=== PATIENT | male | born 1955 | race Two or more races ===

== ENCOUNTER → 2020-03-03 11:42 | Outpatient (BNVA) | payer MEDICARE, OTHER, SELFPAY | PROVIDERS: PCP Internal Medicine; Referring Provider Internal Medicine; Visit Provider Internal Medicine Gastroenterology | DX: C22.0 Liver cell carcinoma (principal); K74.60 Unspecified cirrhosis of liver | CPT/HCPCS: 99214 ==

== ENCOUNTER → 2020-04-24 10:05 | Outpatient (BNVA) | payer SELFPAY | PROVIDERS: PCP Internal Medicine; Visit Provider Internal Medicine | DX: Z02.79 Encounter for issue of other medical certificate (principal) ==

== ENCOUNTER 2020-06-02 12:17 | Outpatient (REF) | payer MEDICAID, SELFPAY | END 2020-06-02 12:18 | disposition home or self-care (01) | LOC: HO.LAB 12:17 | PROVIDERS: Visit Provider Internal Medicine | DX: Z20.822 Contact with and (suspected) exposure to COVID-19 (principal) | CPT/HCPCS: 36415; C9803; U0003 ==

== ENCOUNTER → 2020-06-09 08:45 | Outpatient (BNVA) | payer MEDICAID, SELFPAY | PROVIDERS: PCP Internal Medicine; Referring Provider Internal Medicine; Visit Provider Internal Medicine Gastroenterology | DX: Z13.89 Encounter for screening for other disorder (principal) | CPT/HCPCS: Q3014 ==

== ENCOUNTER 2020-06-09 12:20 | Outpatient (REF) | payer MEDICARE, MEDICAID, SELFPAY | END 2020-06-09 12:21 | disposition home or self-care (01) | LOC: HO.LAB 12:20 | PROVIDERS: Visit Provider Internal Medicine | DX: Z20.822 Contact with and (suspected) exposure to COVID-19 (principal) | CPT/HCPCS: 36415; C9803; U0003; U0005 ==

== ENCOUNTER 2020-06-30 10:15 | Outpatient (REF) | payer MEDICARE, MEDICAID, SELFPAY ==
[2020-06-30 10:59] LABS: Eosinophils Absolute Auto 0.1 X10*3/uL (0.0-0.4); Eosinophils Percent Auto 3.2 % (0-4); Hemoglobin 11.9 g/dl (14.0-18.0); MANUAL DIFF FLAG SCAN; Monocytes Absolute Auto 0.6 X10*3/uL (0.1-1.2); Neutrophils Percent Auto 67.3 % (45-73); PLT CLUMP 1; Red Cell Distribution Width 12.6 % (11.0-16.0); SCAN SMEAR FLAG 1
[2020-06-30 11:01] LABS: Basophils Percent Auto 0.5 % (0-2); Hematocrit 35.2 % (42-52); Imm Gran Abs Auto 0.02 X10*3/uL (0.00-0.03); Imm Gran Pct Auto 0.5 % (0.0-0.4); Lymphocytes Absolute Auto 0.6 X10*3/uL (1.2-4.9); Lymphocytes Percent Auto 13.8 % (20-40); Mean Corpuscular HGB Conc 33.8 g/dl (31.0-36.0); Mean Corpuscular Hemoglobin 31.1 pg (27.0-33.0); Mean Corpuscular Volume 91.9 fL (80-98); Monocytes Percent Auto 14.7 % (2-11); Neutrophils Absolute Auto 2.7 X10*3/uL (2.0-8.3); Red Blood Count 3.83 X10*6/uL (4.60-5.80); White Blood Count 4.1 X10*3/uL (4.8-10.8)
[2020-06-30 11:03] LABS: Platelet Count 69 X10*3/uL (160-400)
[2020-06-30 11:25] LABS: SLIDE REVIEW VERIFIED
[2020-06-30 11:28] LABS: Alanine Aminotransferase 17 U/L (0-40); Albumin Level 3.6 g/dL (3.5-5.0); Alkaline Phosphatase 98 U/L (39-117); Anion Gap 11 (12-20); Aspartate Amino Transferase 24 U/L (5-37); Bilirubin Total 2.5 mg/dL (0.0-1.0); Blood Urea Nitrogen 11 mg/dL (9-16); Calcium 8.5 mg/dL (8.4-10.2); Carbon Dioxide 25 mmol/L (22-29); Chloride 108 mmol/L (96-108); Cholesterol 120 mg/dL; Estimated Glomerular Filt Rate > 60; Glucose Fasting 126 mg/dL (60-99); HDL Cholesterol 32 mg/dL; LDL Cholesterol Calculated 72 mg/dl; Potassium 4.2 mmol/L (3.3-5.1); Sodium 140 mmol/L (135-145); Total Protein 6.9 g/dL (6.5-8.0); Triglycerides 81 mg/dL
[2020-06-30 11:30] LABS: Glucose Urine UA NEG (NEG); Leukocyte Esterase Urine NEG (NEG); Nitrite Urine NEG (NEG); Specific Gravity - Urine 1.025 (1.005-1.025); Urine Blood 2+ (NEG); Urine Ketones NEG (NEG); Urine Protein NEG (NEG-TRACE)
[2020-06-30 11:33] LABS: Appearance Urine HAZY; Color Urine YELLOW
[2020-06-30 11:43] LABS: TSH reflex Free T4 1.72 uIU/mL (0.32-4.0); Vitamin D 25-OH Total 26.2 ng/mL (>30)
[2020-06-30 11:44] LABS: Mucus Urine 1+ /LPF; Squamous Epithelial Cell Urine 1+ /LPF; WBC Urine 0 /HPF (0-4)
== END 2020-06-30 10:16 | disposition home or self-care (01) ==
LOC: HO.LAB 10:15
PROVIDERS: PCP Internal Medicine; Visit Provider Internal Medicine
DX: C22.0 Liver cell carcinoma (principal); I10 Essential (primary) hypertension; K74.60 Unspecified cirrhosis of liver; E78.5 Hyperlipidemia, unspecified; I63.9 Cerebral infarction, unspecified; E66.9 Obesity, unspecified; E55.9 Vitamin D deficiency, unspecified
CPT/HCPCS: 36415; 80053; 80061; 81001; 82306; 84443; 85025

== ENCOUNTER 2020-07-01 11:43 | Outpatient (REF) | payer MEDICARE, MEDICAID, SELFPAY ==
[2020-07-01 13:24] LABS: Glucose Urine UA NEG (NEG); Leukocyte Esterase Urine NEG (NEG); Nitrite Urine NEG (NEG); PH 5.5 (5.0-8.0); Urine Blood 1+ (NEG); Urine Ketones NEG (NEG); Urine Protein NEG (NEG-TRACE)
[2020-07-01 13:30] LABS: Appearance Urine HAZY; Color Urine YELLOW
[2020-07-01 13:46] LABS: Mucus Urine 2+ /LPF; RBC Urine 0-2 /HPF (0); Squamous Epithelial Cell Urine 1+ /LPF; WBC Urine 0 /HPF (0-4)
[2020-07-02 07:44] LABS: Syphilis Screen Reactive (Nonreactive)
[2020-07-04 19:11] LABS: Treponema pallidum Ab FTA ABS Reactive (Nonreactive)
[2020-07-07 15:09] LABS: RPR Quantitative Reactive 1:8 (Nonreactive); T.Pallidum Particle Agg Test Reactive (Nonreactive)
== END 2020-07-01 11:44 | disposition home or self-care (01) ==
LOC: HO.LAB 11:43
PROVIDERS: PCP Internal Medicine; Visit Provider Internal Medicine
DX: A53.0 Latent syphilis, unspecified as early or late (principal); I10 Essential (primary) hypertension; N40.0 Benign prostatic hyperplasia without lower urinary tract symptoms; K42.9 Umbilical hernia without obstruction or gangrene
CPT/HCPCS: 36415; 81001; 86592; 86780

== ENCOUNTER 2020-08-08 09:25 | Outpatient (REF) | payer MEDICARE, MEDICAID, SELFPAY ==
[2020-08-08 11:03] LABS: Basophils Percent Auto 0.7 % (0-2); Eosinophils Absolute Auto 0.2 X10*3/uL (0.0-0.4); Eosinophils Percent Auto 4.2 % (0-4); Hematocrit 33.8 % (42-52); Hemoglobin 11.3 g/dl (14.0-18.0); Imm Gran Abs Auto 0.02 X10*3/uL (0.00-0.03); Imm Gran Pct Auto 0.5 % (0.0-0.4); Lymphocytes Absolute Auto 0.6 X10*3/uL (1.2-4.9); Lymphocytes Percent Auto 14.5 % (20-40); MANUAL DIFF FLAG SCAN; Mean Corpuscular HGB Conc 33.4 g/dl (31.0-36.0); Mean Corpuscular Hemoglobin 30.6 pg (27.0-33.0); Mean Corpuscular Volume 91.6 fL (80-98); Mean Platelet Volume 12.2 fL (9.4-12.4); Monocytes Absolute Auto 0.6 X10*3/uL (0.1-1.2); Monocytes Percent Auto 15.8 % (2-11); Neutrophils Absolute Auto 2.6 X10*3/uL (2.0-8.3); Neutrophils Percent Auto 64.3 % (45-73); Red Blood Count 3.69 X10*6/uL (4.60-5.80); Red Cell Distribution Width 12.9 % (11.0-16.0); SCAN SMEAR FLAG 1; White Blood Count 4.1 X10*3/uL (4.8-10.8)
[2020-08-08 11:04] LABS: INTERNATIONAL NORM RATIO 1.5 (0.9-1.1); Prothrombin Time 17.4 SEC (10.8-13.0)
[2020-08-08 11:06] LABS: Alanine Aminotransferase 18 U/L (0-40); Albumin Level 3.7 g/dL (3.5-5.0); Alkaline Phosphatase 104 U/L (39-117); Aspartate Amino Transferase 23 U/L (5-37); Bilirubin Total 1.9 mg/dL (0.0-1.0); Blood Urea Nitrogen 12 mg/dL (9-16); Carbon Dioxide 27 mmol/L (22-29); Chloride 105 mmol/L (96-108); Estimated Glomerular Filt Rate > 60; Iron 59 mcg/dL (45-160); Percent Iron Saturation 14 % (15-50); Potassium 4.1 mmol/L (3.3-5.1); Sodium 139 mmol/L (135-145); Total Iron Binding Capacity 415 mcg/dL (228-428); Unsaturated Iron Binding 356 ug/dL
[2020-08-08 11:12] LABS: Platelet Count 80 X10*3/uL (160-400)
[2020-08-08 11:28] LABS: Ferritin 29 ng/mL (20-250)
[2020-08-08 11:32] LABS: SLIDE REVIEW VERIFIED
[2020-08-12 22:12] LABS: Transferrin 348 mg/dL (188-341)
== END 2020-08-08 09:26 | disposition home or self-care (01) ==
LOC: HO.LAB 09:25
PROVIDERS: PCP Internal Medicine; Visit Provider Registered Nurse
DX: K74.60 Unspecified cirrhosis of liver (principal); C22.0 Liver cell carcinoma
CPT/HCPCS: 36415; 82040; 82247; 82374; 82435; 82565; 82728; 83540; 84075; 84132; 84295; 84450; 84460; 84466; 84520; 85025; 85610

== ENCOUNTER 2020-08-28 12:40 | Outpatient (REF) | payer MEDICARE, MEDICAID, SELFPAY ==
[2020-08-28 13:58] LABS: Basophils Percent Auto 0.7 % (0-2); MANUAL DIFF FLAG SCAN; PLT CLUMP 1; Red Cell Distribution Width 13.2 % (11.0-16.0); SCAN SMEAR FLAG 1
[2020-08-28 14:01] LABS: Eosinophils Absolute Auto 0.2 X10*3/uL (0.0-0.4); Eosinophils Percent Auto 4.1 % (0-4); Hematocrit 32.9 % (42-52); Hemoglobin 11.2 g/dl (14.0-18.0); Imm Gran Abs Auto 0.01 X10*3/uL (0.00-0.03); Imm Gran Pct Auto 0.2 % (0.0-0.4); Lymphocytes Absolute Auto 0.6 X10*3/uL (1.2-4.9); Lymphocytes Percent Auto 13.3 % (20-40); Mean Corpuscular Hemoglobin 31.1 pg (27.0-33.0); Mean Corpuscular Volume 91.4 fL (80-98); Mean Platelet Volume 10.9 fL (9.4-12.4); Monocytes Absolute Auto 0.6 X10*3/uL (0.1-1.2); Monocytes Percent Auto 13.8 % (2-11); Neutrophils Absolute Auto 2.8 X10*3/uL (2.0-8.3); Neutrophils Percent Auto 67.9 % (45-73); White Blood Count 4.1 X10*3/uL (4.8-10.8)
[2020-08-28 14:12] LABS: INTERNATIONAL NORM RATIO 1.4 (0.9-1.1); Prothrombin Time 17.2 SEC (10.8-13.0)
[2020-08-28 14:15] LABS: Alanine Aminotransferase 16 U/L (0-40); Albumin Level 3.7 g/dL (3.5-5.0); Alkaline Phosphatase 103 U/L (39-117); Aspartate Amino Transferase 22 U/L (5-37); Bilirubin Total 2.6 mg/dL (0.0-1.0); Blood Urea Nitrogen 18 mg/dL (9-16); Carbon Dioxide 23 mmol/L (22-29); Chloride 109 mmol/L (96-108); Estimated Glomerular Filt Rate > 60; Iron 165 mcg/dL (45-160); Percent Iron Saturation 37 % (15-50); Potassium 4.1 mmol/L (3.3-5.1); Sodium 139 mmol/L (135-145); Total Iron Binding Capacity 444 mcg/dL (228-428); Unsaturated Iron Binding 279 ug/dL
[2020-08-28 14:25] LABS: Platelet Count 70 X10*3/uL (160-400)
[2020-08-28 14:36] LABS: Ferritin 23 ng/mL (20-250)
[2020-08-28 14:42] LABS: SLIDE REVIEW VERIFIED
[2020-08-29 14:57] LABS: Transferrin 353 mg/dL (188-341)
== END 2020-08-28 12:41 | disposition home or self-care (01) ==
LOC: HO.LAB 12:40
PROVIDERS: PCP Internal Medicine; Visit Provider Registered Nurse
DX: K74.60 Unspecified cirrhosis of liver (principal); C22.0 Liver cell carcinoma
CPT/HCPCS: 36415; 82040; 82247; 82374; 82435; 82565; 82728; 83540; 84075; 84132; 84295; 84450; 84460; 84466; 84520; 85025; 85610

== ENCOUNTER 2020-09-09 11:38 | Outpatient (REF) | payer MEDICARE, MEDICAID, SELFPAY ==
[2020-09-09 12:17] LABS: COVID-19 Test Negative (Negative)
== END 2020-09-09 11:39 | disposition home or self-care (01) ==
LOC: HO.LAB 11:38
PROVIDERS: Visit Provider Internal Medicine
DX: Z20.822 Contact with and (suspected) exposure to COVID-19 (principal)
CPT/HCPCS: 36415; 87635; C9803

== ENCOUNTER 2020-09-23 11:59 | Outpatient (REF) | payer MEDICARE, MEDICAID, SELFPAY ==
[2020-09-23 13:25] LABS: Eosinophils Absolute Auto 0.2 X10*3/uL (0.0-0.4); Hematocrit 35.2 % (42-52); MANUAL DIFF FLAG SCAN; Mean Corpuscular Volume 91.9 fL (80-98); PLT CLUMP 1; Red Blood Count 3.83 X10*6/uL (4.60-5.80); SCAN SMEAR FLAG 1
[2020-09-23 13:27] LABS: Basophils Percent Auto 0.8 % (0-2); Eosinophils Percent Auto 3.2 % (0-4); Hemoglobin 11.9 g/dl (14.0-18.0); Imm Gran Abs Auto 0.03 X10*3/uL (0.00-0.03); Imm Gran Pct Auto 0.6 % (0.0-0.4); Lymphocytes Absolute Auto 0.6 X10*3/uL (1.2-4.9); Lymphocytes Percent Auto 12.2 % (20-40); Mean Corpuscular HGB Conc 33.8 g/dl (31.0-36.0); Mean Corpuscular Hemoglobin 31.1 pg (27.0-33.0); Monocytes Absolute Auto 0.7 X10*3/uL (0.1-1.2); Monocytes Percent Auto 13.8 % (2-11); Neutrophils Absolute Auto 3.5 X10*3/uL (2.0-8.3); Neutrophils Percent Auto 69.4 % (45-73); Red Cell Distribution Width 13.1 % (11.0-16.0); White Blood Count 5.1 X10*3/uL (4.8-10.8)
[2020-09-23 13:30] LABS: Platelet Count 76 X10*3/uL (160-400)
[2020-09-23 13:31] LABS: INTERNATIONAL NORM RATIO 1.4 (0.9-1.1); Prothrombin Time 17.2 SEC (10.8-13.0)
[2020-09-23 13:47] LABS: SLIDE REVIEW VERIFIED
[2020-09-23 13:59] LABS: Alanine Aminotransferase 21 U/L (0-40); Albumin Level 3.7 g/dL (3.5-5.0); Alkaline Phosphatase 97 U/L (39-117); Aspartate Amino Transferase 23 U/L (5-37); Blood Urea Nitrogen 11 mg/dL (9-16); Carbon Dioxide 26 mmol/L (22-29); Chloride 107 mmol/L (96-108); Estimated Glomerular Filt Rate > 60; Iron 211 mcg/dL (45-160); Percent Iron Saturation 47 % (15-50); Potassium 4.4 mmol/L (3.3-5.1); Sodium 139 mmol/L (135-145); Total Iron Binding Capacity 445 mcg/dL (228-428); Unsaturated Iron Binding 234 ug/dL
[2020-09-23 14:21] LABS: Ferritin 33 ng/mL (20-250)
[2020-09-24 09:04] LABS: Syphilis Screen Reactive (Nonreactive)
[2020-09-24 11:42] LABS: Transferrin 353 mg/dL (188-341)
[2020-09-25 11:32] LABS: Alpha Fetoprotein 3.3 ng/mL (<6.1)
[2020-09-26 13:25] LABS: HCV Log PCR <1.18 NOT DETECTED Log IU/mL (NOT DETECTED); HepC Viral Load <15 NOT DETECTED IU/mL (NOT DETECTED)
[2020-10-01 13:53] LABS: RPR Quantitative Reactive 1:8 (Nonreactive); T.Pallidum Particle Agg Test Reactive (Nonreactive)
== END 2020-09-23 12:00 | disposition home or self-care (01) ==
LOC: HO.LAB 11:59
PROVIDERS: PCP Internal Medicine; Visit Provider Internal Medicine
DX: K74.60 Unspecified cirrhosis of liver (principal)
CPT/HCPCS: 36415; 82040; 82105; 82374; 82435; 82565; 82728; 83540; 84075; 84132; 84295; 84450; 84460; 84466; 84520; 85025; 85610; 86592; 86780; 87522

== ENCOUNTER 2020-11-04 15:41 | Outpatient (REF) | payer MEDICARE, MEDICAID, SELFPAY ==
[2020-11-04 17:07] LABS: Blood Urea Nitrogen 10 mg/dL (9-16); Estimated Glomerular Filt Rate > 60
== END 2020-11-04 15:42 | disposition home or self-care (01) ==
LOC: HO.LAB 15:41
PROVIDERS: PCP Internal Medicine; Visit Provider Radiology Radiation Oncology
DX: C22.0 Liver cell carcinoma (principal)
CPT/HCPCS: 36415; 82565; 84520

== ENCOUNTER → 2020-11-06 10:00 | Outpatient (REF) | payer MEDICARE, MEDICAID, SELFPAY ==
--- NOTE | ~2020-11-06 | NM_ITS ---
EXAMINATION: NM BONE SCAN OF THE WHOLE BODY CLINICAL INFORMATION: Liver cell carcinoma question metastases COMPARISON: CT abdomen and pelvis 01/18/2019 TECHNIQUE: Multiple gamma scintillation camera images of the whole body were performed 3 hours following the intravenous administration of 33 mCi Tc-99m MDP. FINDINGS: In the head, there is no abnormal metabolic activity seen in the calvarium. In the thoracic cage and upper extremities, minimal focal activity seen in the T8 vertebra likely related to degenerative changes. No additional metabolic activity seen in the thoracic cavity. Mild increased activity seen in bilateral AC joints. In the spine, no abnormal metabolic activity seen in the thoracic, cervical or lumbar spine. SI joints are symmetrical and have normal activity. In the pelvis, no abnormal activity seen in the pelvis In the lower extremities, no abnormal activity seen in the lower extremities. No other definite bony abnormalities are noted. The urinary bladder and faint visualization of both kidneys are noted. NM/NM bone scan whole body IMPRESSION: No abnormal metabolic activity seen on whole body bone scan to suspect metastatic disease.
--- NOTE | ~2020-11-06 | CT_ITS ---
EXAMINATION: CT CHEST WITH CONTRAST CLINICAL INFORMATION: Liver cancer COMPARISON: Previous chest CT scan most recent January 2019 TECHNIQUE: Multidetector volumetric CT imaging of the chest was obtained after the administration of 65 mL of Omnipaque 350 intravenous contrast without immediate adverse reactions. Axial MIP volume rendering provided. Sagittal and coronal reformatted images were obtained. This CT examination was performed using dose optimization techniques as appropriate, variously including the following: *Automated exposure control *Adjustment of mA and/or kV according to patient size (this includes techniques or standardized protocols for targeted exams where dose is matched to indication/reason for exam; i.e. extremities or head) *Use of iterative reconstruction technique DLP: 174 mGy-cm FINDINGS: LUNGS: There are small pulmonary nodules that are stable. Largest pulmonary nodule is a 3 mm calcified left upper lobe nodule axial image 58 series 5. No new pulmonary nodule is seen. MEDIASTINUM: There are small mediastinal lymph nodes that are stable. No enlarged lymph nodes are seen. The heart does not appear enlarged. There is no coronary artery calcium there is no pericardial effusion. The thoracic aorta is normal in caliber. The visualized thyroid gland is normal. PLEURA: There is no pleural effusion. No pleural mass or thickening. AXILLA: No lymphadenopathy. UPPER ABDOMEN: There are stable postsurgical changes to the right lobe of the liver. There are new posttreatment changes to the high lateral left lobe of the liver and lateral segment of the left lobe of the liver with surgical clips. These are associated with low-attenuation areas measuring approximately 3 x 4 cm high in the central liver and 2 x 8 cm in the lateral segment of the left lobe of the liver. These findings are new from previous exam from 2019. The spleen is enlarged. There may be trace ascites adjacent to the spleen. There are gallstones in the gallbladder. There is a 1.5 cm left renal cyst. OSSEOUS STRUCTURES: There are degenerative changes of the spine. CT/CT chest w con IMPRESSION: Stable small pulmonary nodules from 2019. New postsurgical changes to the liver. Enlarged spleen. Question trace ascites adjacent to the spleen. Gallstones. Left renal cyst.
[2020-11-06] MEDS: iohexoL 350 MG/ML 100 ML INFUS..BTL IV (11:29)
== END ==
LOC: HO.NUCMED 10:00
PROVIDERS: Visit Provider Registered Nurse
DX: C22.0 Liver cell carcinoma (principal)
CPT/HCPCS: 71260; 78306; A9503; Q9967

== ENCOUNTER 2021-02-05 11:44 | Outpatient (REF) | payer MEDICARE, MEDICAID, SELFPAY ==
[2021-02-05 12:17] LABS: Blood Urea Nitrogen 10 mg/dL (9-16); Carbon Dioxide 25 mmol/L (22-29); Chloride 106 mmol/L (96-108); Estimated Glomerular Filt Rate > 60; Potassium 4.1 mmol/L (3.3-5.1); Sodium 139 mmol/L (135-145)
== END 2021-02-05 11:45 | disposition home or self-care (01) ==
LOC: HO.LAB 11:44
PROVIDERS: Absent Provider Internal Medicine; PCP Internal Medicine; Visit Provider Registered Nurse
DX: E87.70 Fluid overload, unspecified (principal); C22.0 Liver cell carcinoma
CPT/HCPCS: 36415; 82374; 82435; 82565; 84132; 84295; 84520

== ENCOUNTER 2021-02-16 11:55 | Outpatient (REF) | payer MEDICARE, MEDICAID, SELFPAY ==
[2021-02-16 13:03] LABS: Blood Urea Nitrogen 14 mg/dL (9-16); Carbon Dioxide 28 mmol/L (22-29); Chloride 107 mmol/L (96-108); Estimated Glomerular Filt Rate > 60; Potassium 3.9 mmol/L (3.3-5.1); Sodium 140 mmol/L (135-145)
== END 2021-02-16 11:56 | disposition home or self-care (01) ==
LOC: HO.LAB 11:55
PROVIDERS: Absent Provider Internal Medicine; PCP Internal Medicine; Visit Provider Registered Nurse
DX: C22.0 Liver cell carcinoma (principal); E87.70 Fluid overload, unspecified
CPT/HCPCS: 36415; 80051; 82374; 82435; 82565; 84132; 84295; 84520

== ENCOUNTER 2021-03-31 11:35 | Outpatient (REF) | payer MEDICARE, MEDICAID, SELFPAY | END 2021-03-31 11:36 | disposition home or self-care (01) | LOC: HO.MDS 11:35 | PROVIDERS: PCP Internal Medicine; Visit Provider Internal Medicine | DX: D64.9 Anemia, unspecified (principal) | CPT/HCPCS: 36430; 86850; 86900; 86901; 86923; P9016 ==

== ENCOUNTER 2021-04-01 12:35 | Outpatient (REF) | payer MEDICARE, MEDICAID, SELFPAY ==
[2021-04-01 13:06] LABS: MANUAL DIFF FLAG NO
[2021-04-01 13:50] LABS: Basophils Percent Auto 0.6 % (0-2); Eosinophils Absolute Auto 0.2 X10*3/uL (0.0-0.4); Eosinophils Percent Auto 3.5 % (0-4); Hematocrit 30.9 % (42.0-52.0); Hemoglobin 10.2 g/dl (14.0-18.0); Imm Gran Abs Auto 0.02 X10*3/uL (0.00-0.03); Imm Gran Pct Auto 0.4 % (0.0-0.4); Lymphocytes Absolute Auto 0.5 X10*3/uL (1.2-4.9); Lymphocytes Percent Auto 10.6 % (20-40); Mean Corpuscular Hemoglobin 27.1 pg (27.0-33.0); Monocytes Absolute Auto 0.9 X10*3/uL (0.1-1.2); Neutrophils Absolute Auto 3.3 x10*3/uL (2.0-8.3); Neutrophils Percent Auto 66.9 % (45-73); Red Blood Count 3.77 X10*6/uL (4.60-5.80); Red Cell Distribution Width 14.8 % (11.0-16.0); White Blood Count 4.9 X10*3/uL (4.8-10.8)
[2021-04-01 14:03] LABS: Platelet Count 62 X10*3/uL (160-400)
== END 2021-04-01 12:36 | disposition home or self-care (01) ==
LOC: HO.LAB 12:35
PROVIDERS: PCP Internal Medicine; Visit Provider Internal Medicine
DX: Z86.2 Personal history of diseases of the blood and blood-forming organs and certain disorders involving the immune mechanism (principal)
CPT/HCPCS: 36415; 85025

== ENCOUNTER → 2021-04-13 13:32 | Outpatient (BNVA) | payer SELFPAY | PROVIDERS: PCP Internal Medicine; Visit Provider Internal Medicine | DX: Z02.79 Encounter for issue of other medical certificate (principal) ==

== ENCOUNTER 2021-04-21 11:48 | Outpatient (REF) | payer MEDICARE, MEDICAID, SELFPAY ==
[2021-04-21 12:02] LABS: MANUAL DIFF FLAG NO
[2021-04-21 12:12] LABS: Basophils Percent Auto 0.7 % (0-2); Eosinophils Absolute Auto 0.2 X10*3/uL (0.0-0.4); Eosinophils Percent Auto 3.1 % (0-4); Hematocrit 32.5 % (42.0-52.0); Hemoglobin 10.7 g/dl (14.0-18.0); Imm Gran Abs Auto 0.03 X10*3/uL (0.00-0.03); Imm Gran Pct Auto 0.5 % (0.0-0.4); Lymphocytes Absolute Auto 0.6 X10*3/uL (1.2-4.9); Lymphocytes Percent Auto 10.8 % (20-40); Mean Corpuscular HGB Conc 32.9 g/dl (31.0-36.0); Mean Corpuscular Hemoglobin 27.8 pg (27.0-33.0); Mean Corpuscular Volume 84.4 fL (80.0-98.0); Mean Platelet Volume 12.3 fL (9.4-12.4); Monocytes Absolute Auto 0.8 X10*3/uL (0.1-1.2); Monocytes Percent Auto 13.9 % (2-11); Neutrophils Absolute Auto 4.1 x10*3/uL (2.0-8.3); Red Blood Count 3.85 X10*6/uL (4.60-5.80); Red Cell Distribution Width 16.5 % (11.0-16.0); White Blood Count 5.7 X10*3/uL (4.8-10.8)
[2021-04-21 12:13] LABS: Platelet Count 86 X10*3/uL (160-400)
[2021-04-21 12:38] LABS: Alanine Aminotransferase 17 U/L (0-40); Albumin Level 3.7 g/dL (3.5-5.0); Alkaline Phosphatase 117 U/L (39-117); Anion Gap 13 (12-20); Aspartate Amino Transferase 22 U/L (5-37); Bilirubin Total 1.6 mg/dL (0.0-1.0); Blood Urea Nitrogen 22 mg/dL (9-16); Calcium 9.4 mg/dL (8.4-10.2); Carbon Dioxide 25 mmol/L (22-29); Chloride 101 mmol/L (96-108); Cholesterol 130 mg/dL; Estimated Glomerular Filt Rate 43; Glucose Fasting 275 mg/dL (60-99); HDL Cholesterol 23 mg/dL; LDL Cholesterol Calculated 37 mg/dl; Potassium 4.4 mmol/L (3.3-5.1); Sodium 135 mmol/L (135-145); Total Protein 7.4 g/dL (6.5-8.0); Triglycerides 354 mg/dL
[2021-04-21 12:57] LABS: Vitamin D 25-OH Total 24.8 ng/mL (>30)
[2021-04-21 13:33] LABS: Appearance Urine CLEAR; Color Urine YELLOW; Glucose Urine UA NEG (NEG); Leukocyte Esterase Urine NEG (NEG); Nitrite Urine NEG (NEG); UACC Culture Trigger NO; Urine Blood TRACE (NEG); Urine Ketones NEG (NEG); Urine Protein NEG (NEG-TRACE)
[2021-04-21 13:46] LABS: Squamous Epithelial Cell Urine 1+ /LPF; WBC Urine 0-2 /HPF (0-4)
[2021-04-24 17:42] LABS: Treponema pallidum Ab FTA ABS Reactive (Nonreactive)
== END 2021-04-21 11:49 | disposition home or self-care (01) ==
LOC: HO.LAB 11:48
PROVIDERS: Visit Provider Internal Medicine
DX: I10 Essential (primary) hypertension (principal); E78.00 Pure hypercholesterolemia, unspecified; E55.9 Vitamin D deficiency, unspecified; A53.0 Latent syphilis, unspecified as early or late
CPT/HCPCS: 36415; 80053; 80061; 81001; 82306; 84443; 85025; 86780

== ENCOUNTER 2021-05-19 15:17 | Outpatient (REF) | payer MEDICARE, MEDICAID, SELFPAY ==
[2021-05-19 16:12] LABS: Binax Now Covid-19 Ag Negative (Negative)
[2021-05-19 16:13] LABS: Binax Internal Control QC Valid
== END 2021-05-19 15:18 | disposition home or self-care (01) ==
LOC: HO.LAB 15:17
PROVIDERS: Visit Provider Internal Medicine
DX: Z20.822 Contact with and (suspected) exposure to COVID-19 (principal)
CPT/HCPCS: C9803

== ENCOUNTER 2021-06-09 11:07 | Outpatient (REF) | payer MEDICARE, MEDICAID, SELFPAY ==
[2021-06-09 12:15] LABS: Estimated Average Glucose 200 mg/dL; Hemoglobin A1c % 8.6 %
[2021-06-09 12:37] LABS: Alanine Aminotransferase 20 U/L (0-40); Albumin Level 3.4 g/dL (3.5-5.0); Alkaline Phosphatase 107 U/L (39-117); Aspartate Amino Transferase 22 U/L (5-37); Bilirubin Total 2.1 mg/dL (0.0-1.0); Blood Urea Nitrogen 15 mg/dL (9-16); Carbon Dioxide 28 mmol/L (22-29); Chloride 101 mmol/L (96-108); Estimated Glomerular Filt Rate 53; Potassium 4.4 mmol/L (3.3-5.1); Sodium 134 mmol/L (135-145)
[2021-06-09 13:04] LABS: Appearance Urine CLEAR; Color Urine STRAW; Glucose Urine UA 250 MG/DL (NEG); Leukocyte Esterase Urine NEG (NEG); Nitrite Urine NEG (NEG); Specific Gravity - Urine 1.015 (1.005-1.025); Urine Blood NEG (NEG); Urine Ketones NEG (NEG); Urine Protein NEG (NEG-TRACE)
[2021-06-12 10:36] LABS: Antibody to SS-A Antigen <1.0 NEG AI (<1.0 NEG); Antibody to SS-B Antigen <1.0 NEG AI (<1.0 NEG)
== END 2021-06-09 11:08 | disposition home or self-care (01) ==
LOC: HO.LAB 11:07
PROVIDERS: PCP Internal Medicine; Visit Provider Registered Nurse
DX: C22.0 Liver cell carcinoma (principal); E87.70 Fluid overload, unspecified; K74.60 Unspecified cirrhosis of liver; K11.7 Disturbances of salivary secretion; R63.1 Polydipsia; R73.09 Other abnormal glucose; C22.9 Malignant neoplasm of liver, not specified as primary or secondary; R53.83 Other fatigue
CPT/HCPCS: 36415; 81003; 82040; 82247; 82374; 82435; 82565; 83036; 84075; 84132; 84295; 84450; 84460; 84520; 86235

== ENCOUNTER 2021-06-17 14:24 | Outpatient (REF) | payer MEDICARE, MEDICAID, SELFPAY ==
[2021-06-17 15:53] LABS: Anion Gap 10 (12-20); Blood Urea Nitrogen 15 mg/dL (9-16); Calcium 9.2 mg/dL (8.4-10.2); Carbon Dioxide 29 mmol/L (22-29); Chloride 99 mmol/L (96-108); Estimated Glomerular Filt Rate 47; Glucose Random 374 mg/dL (60-115); Potassium 4.2 mmol/L (3.3-5.1); Sodium 134 mmol/L (135-145)
== END 2021-06-17 14:25 | disposition home or self-care (01) ==
LOC: HO.LAB 14:24
PROVIDERS: PCP Internal Medicine; Referring Provider Internal Medicine; Visit Provider Registered Nurse
DX: E87.70 Fluid overload, unspecified (principal); C22.0 Liver cell carcinoma
CPT/HCPCS: 36415; 80048

== ENCOUNTER 2021-08-04 09:58 | Outpatient (AMB) | payer MEDICARE, MEDICAID, SELFPAY ==
[2021-08-04 10:06] VITALS: BP 128/70; PULSE 72; TEMP 36; O2SAT 99; BMI 35.1
--- NOTE | 2021-08-04 10:06 | MHC.PC.OV ---
Vital Signs 08/04/21 10:06 Height 5 ft 5 in Weight 211 lb BMI 35.1 BP 128/70 Pulse 72 Pulse Source Pulse Oximeter Temp 96.8 F Pulse Oximetry (%) 99 Oxygen Delivery Method Room Air Intake Visit Reasons: 3m f/u Scale And Skip Car Operator Required: No Accompanied by: Self / Same As Patient Allergies No Known Allergies [No Known Allergies*] Allergy (Verified 08/04/21 10:44) Medication List - Last Reconciled 08/04/21 by Kimo Daly MD aspirin 81 mg PO DAILY cholecalciferol (vitamin D3) 50 mcg PO DAILY diphenhydramine HCl (Banophen) 25 - 50 mg (1 - 2 x 25 mg) PO BEDTIME PRN furosemide 40 mg PO BID iron,carbonyl-vitamin C 65 mg iron- 125 mg (Vitron-C) 1 tab PO DAILY nadolol 30 mg PO QPM pantoprazole 20 mg PO BID sildenafil 100 mg PO DAILY 30 days PRN spironolactone 100 mg PO BID Tobacco use date assessed: 08/04/21 Fall risk assessment: No Falls in past year Last assessed Fall Risk: 08/04/21 HPI 3m f/u HPI Details Patient comes in today for his follow up visit States that he feels okay Denies any headaches or dizziness Denies any chest pains, no shortness of breath No nausea/ vomiting, no abdominal pain No change in bowel habits noted Had his follow up labs done last month - to discuss his results [facility] Medical History (Updated 08/10/21 @ 02:19 by Kimo Daly MD) Acute respiratory disease due to COVID-19 virus Benign essential hypertension Benign prostate hyperplasia Cerebrovascular accident (CVA) Cirrhosis of liver without ascites Dyslipidemia Hepatocellular carcinoma History of hepatitis C 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 Brother No problems noted. Brother No problems noted. Sister No problems noted. Son No problems noted. Son No problems noted. Son No problems noted. Other Substance abuse Social History Household Members: Significant Other Housing: Apartment Alcohol intake: former Patient Tobacco Use Status: Current everyday Tobacco user Cigarettes Per Day: 6 Second Hand Smoke Exposure: Yes service: No Current occupational status: unemployed Cognitive needs: No Hearing needs: No Vision needs: Yes Questionnaire PHQ-9 Over the last 2 weeks, how often have you been bothered by any of the following problems? 1. Little interest or pleasure in doing things: not at all 2. Feeling down, depressed, or hopeless: not at all 3. Trouble falling or staying asleep, or sleeping too much: not at all 4. Feeling tired or having little energy: not at all 5. Poor appetite or overeating: not at all 6. Feeling bad about yourself - or that you are a failure or have let yourself or your family down: not at all 7. Trouble concentrating on things, such as reading the newspaper or watching television: not at all 8. Moving or speaking so slowly that other people could have noticed. Or the opposite - being so fidgety or restless that you have been moving around a lot more than usual: not at all 9. Thoughts that you would be better off or of hurting yourself in some way: not at all Total score: 0 Depression Screening Interpretation: Negative 65351 - PHQ-9 Billing: Yes Source: Developed by Drs. Jose Daniel, Gina Cash, William Fox and colleagues, with an educational nikhil from [employer]. Thrive Questionnaire Date Thrive assessed: 08/04/21 I am a: Patient What is your living situation today?: I have a steady place to live Within the past 12 months, did the food you bought not last and you didn't have the money to get more?: Never true Within the past 12 months, did you worry whether your food would run out before you got money to buy more?: Never true Do you have trouble paying for medicines?: No Do you have trouble getting transportation to medical appointments?: No Do you have trouble paying your heating and electricity bill?: No Do you have trouble taking care of your child, family member or friend?: No Do you have trouble with day-to-day activities such as bathing, preparing meals, shopping, managing finances, etc.?: No Are you currently unemployed and looking for a job?: No Are you interested in more education?: No Currently or been in a relationship where the following occur: no concerns reported AUDIT C Alcohol Use Questionnaire (AUDIT-C) 1. How often do you have a drink containing alcohol?: Never 3. How often do you have six or more drinks on one occasion?: Never Total Score: 0 Score Reviewed/Action Taken: Yes TONYA-7 AMB Questionnaire TONYA-7 Date TONYA - 7 assessed: 08/04/21 Feeling nervous, anxious, or on edge: 0 = Not at all Not being able to stop or control worryin = Not at all Worrying too much about different things: 0 = Not at all Trouble relaxin = Not at all Being so restless that it is hard to sit still: 0 = Not at all Becoming easily annoyed or irritable: 0 = Not at all Feeling afraid as if something awful might happen: 0 = Not at all Total TONYA-7 score (0-4 normal; 5-9 mild; 10-14 moderate; 15-21 severe): 0 Source: Developed by Drs. Jose Daniel, Gina Cash, William Fox and colleagues, with an educational nikhil from [employer]. Review of Systems Const Denies chills, Reports fatigue, Denies fever(s) and Denies headache(s) ENT Denies headache(s), Denies odynophagia, Denies sinus pain and Denies sore throat Card Denies chest pain, Denies palpitations and Denies dyspnea Resp Denies cough and Denies dyspnea GI Denies abdominal pain, Denies constipation, Denies heartburn, Denies diarrhea, Denies nausea, Denies odynophagia and Denies vomiting Denies dysuria and Denies nocturia Neuro Denies headache(s) Endo Reports fatigue and Denies palpitations Physical exam (Primary Care) Vital Signs: Last Vital Signs Temp 96.8 F 08/04/21 10:06 Pulse 72 08/04/21 10:06 BP 128/70 08/04/21 10:06 Pulse Ox 99 08/04/21 10:06 Oxygen Delivery Method Room Air 03/29/22 10:06 BMI result Body Mass Index 35.1 Tobacco/Smoking Status: Tobacco use Status Tobacco use date assessed 08/04/21 08/04/21 10:16 Patient Tobacco Use Status Current everyday Tobacco 08/04/21 10:08 PHQ-9: PHQ-9 Score PHQ-9: Total score 0 08/04/21 10:48 Depression Screening Interpretation: Negative Thrive Assessment: Date of Thrive Assessment Date Thrive assessed 08/04/21 08/04/21 10:08 Currently or been in a relationship where the following occur: no concerns reported Const General: no acute distress and alert HENMT Ears: TM's normal bilaterally and EAC's normal Throat: Yes posterior oropharynx normal and Yes tonsils normal (no TP congestion) Neck Neck: Yes no lymphadenopathy and Yes supple Resp Auscultation: clear to auscultation bilaterally, no rales and no wheezes Cardio Rate: regular rate Rhythm: regular rhythm Heart sounds: no murmurs GI Palpation (GI): Soft to palpation, nontender and No hepatosplenomegaly present Skin General skin exam: no rashes or lesions noted Extrem General: Yes no clubbing, cyanosis or edema Results Reviewed Results Reviewed: Laboratory Tests 04/21/21 06/09/21 06/09/21 12:00 11:48 11:48 Sodium Potassium Creatinine Estimated GFR Random Glucose Hemoglobin A1c % 8.6 Calcium AST 22 ALT 20 Triglycerides 354 Cholesterol 130 LDL Cholesterol, Calc 37 HDL Cholesterol 23 D 25-OH Vitamin D Total 24.8 TSH 1.70 Ur Specific [place] Urine Protein Urine Glucose (UA) Urine Blood 06/09/21 06/17/21 12:32 14:49 Sodium 134 L Potassium 4.2 Creatinine 1.50 H Estimated GFR 47 Random Glucose 374 H* Hemoglobin A1c % Calcium 9.2 AST ALT Triglycerides Cholesterol LDL Cholesterol, Calc HDL Cholesterol 25-OH Vitamin D Total TSH Ur Specific [place] 1.015 Urine Protein NEG Urine Glucose (UA) 250 H Urine Blood NEG Assessment and Plan Assessment & Plan (1) Diabetes mellitus: Code(s): E11.9 - Type 2 diabetes mellitus without complications Qualifiers: Diabetes mellitus complication status: with hyperglycemia Diabetes mellitus group home insulin use: without group home use Diabetes mellitus type: type 2 Qualified Code(s): E11.65 - Type 2 diabetes mellitus with hyperglycemia Plan: Newly diagnosed; HgbA1c last month was at 8.6% - goal is at least <7.0% Reinforced diabetic diet; patient admits that he has been drinking a lot of sodas lately but has no problems cutting this out completely Will start on low dose Januvia 25 mg QD for now due to his liver issues - will need to monitor LFTs closely (2) Hepatocellular carcinoma: Code(s): C22.0 - Liver cell carcinoma (3) Cirrhosis of liver without ascites: Code(s): K74.60 - Unspecified cirrhosis of liver Qualifiers: Hepatic cirrhosis type: unspecified hepatic cirrhosis Qualified Code(s): K74.60 - Unspecified cirrhosis of liver (4) History of hepatitis C: Code(s): Z86.19 - Personal history of other infectious and parasitic diseases (5) 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: Code(s): A53.0 - Latent syphilis, unspecified as early or late Plan: S/P Tx (6) Dyslipidemia: Code(s): E78.5 - Hyperlipidemia, unspecified Plan: Results of his labs done last month reviewed and discussed with patient Reinforced low cholesterol diet Will recheck labs in 2 months for follow up (7) Cerebrovascular accident (CVA): Code(s): I63.9 - Cerebral infarction, unspecified Qualifiers: CVA mechanism: unspecified Qualified Code(s): I63.9 - Cerebral infarction, unspecified Plan: Stable with no recurrence or residual deficits/effects Continue low dose Aspirin Tx at 81 mg QD (8) Benign essential hypertension: Code(s): I10 - Essential (primary) hypertension Plan: Reinforced low sodium diet - goal is systolic BP of at least 130 mm or less (9) Benign prostate hyperplasia: Code(s): N40.0 - Benign prostatic hyperplasia without lower urinary tract symptoms Qualifiers: Lower urinary tract symptom presence: unspecified whether lower urinary tract symptoms present Qualified Code(s): N40.0 - Benign prostatic hyperplasia without lower urinary tract symptoms Plan: Was on Finasteride 5 mg QD previously but stopped taking this a while back - is currently asymptomatic Follow up with urology as scheduled (10) Erectile dysfunction due to arterial insufficiency: Code(s): N52.01 - Erectile dysfunction due to arterial insufficiency Plan: Continue Sildenafil 100 mg QD PRN (11) Smoker: Code(s): F17.200 - Nicotine dependence, unspecified, uncomplicated Plan: Counseled again on smoking cessation (12) Obesity (BMI 30-39.9): Code(s): E66.9 - Obesity, unspecified Plan: Reinforced diet/exercise as tolerated/lose weight Plan Follow up in early October 2021 Orders: Orders Comprehensive [place]. Panel Fast 2 Months E78.00 - Pure hypercholesterolemia, unspecified Hemoglobin A1c 2 Months E11.9 - Type 2 diabetes mellitus without complications Lipid Panel 2 Months E78.00 - Pure hypercholesterolemia, unspecified TSH reflex Free T4 2 Months E78.00 - Pure hypercholesterolemia, unspecified Vitamin D 25-OH Total 2 Months E55.9 - Vitamin D deficiency, unspecified Microalbumin, Random (w Creat) 2 Months E11.9 - Type 2 diabetes mellitus without complications Complete Blood Count Auto Diff 2 Months I10 - Essential (primary) hypertension UA CC w/rflx Micro + Cult 2 Months I10 - Essential (primary) hypertension Referrals Gastroenterology Referral C22.0 - Liver cell carcinoma, K74.60 - Unspecified cirrhosis of liver Medications: New Januvia (sitagliptin) 25 mg PO DAILY 30 days 30 tabs 3RF NS Coding Level of Care Code Est Pt Level 4 (03111) Diagnoses Hepatocellular carcinoma C22.0 Cirrhosis of liver without ascites K74.60 Hepatic cirrhosis type: unspecified hepatic cirrhosis History of hepatitis C Z86.19 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 A53.0 Dyslipidemia E78.5 Cerebrovascular accident (CVA) I63.9 CVA mechanism: unspecified Benign essential hypertension I10 Benign prostate hyperplasia N40.0 Lower urinary tract symptom presence: unspecified whether lower urinary tract symptoms present Smoker F17.200 Obesity (BMI 30-39.9) E66.9 Erectile dysfunction due to arterial insufficiency N52.01 Diabetes mellitus E11.65 Diabetes mellitus complication status: with hyperglycemia Diabetes mellitus intermediate card tender insulin use: without group home use Diabetes mellitus type: type 2 Additional Codes PHQ-9 - 49013 - PHQ-9 Billing: Yes ([id number])
== END 2021-08-04 11:09 | disposition home or self-care (01) ==
LOC: HO.HMGH 09:58
PROVIDERS: PCP Internal Medicine; Visit Provider Internal Medicine
DX: C22.0 Liver cell carcinoma (principal); K74.60 Unspecified cirrhosis of liver; Z86.19 Personal history of other infectious and parasitic diseases; A53.0 Latent syphilis, unspecified as early or late; E78.5 Hyperlipidemia, unspecified; I63.9 Cerebral infarction, unspecified; I10 Essential (primary) hypertension; N40.0 Benign prostatic hyperplasia without lower urinary tract symptoms; F17.200 Nicotine dependence, unspecified, uncomplicated; E66.9 Obesity, unspecified; N52.01 Erectile dysfunction due to arterial insufficiency; E11.65 Type 2 diabetes mellitus with hyperglycemia
CPT/HCPCS: 99499

== ENCOUNTER 2021-09-29 14:22 | Outpatient (REF) | payer MEDICARE, MEDICAID, SELFPAY ==
[2021-09-29 14:41] LABS: MANUAL DIFF FLAG NO
[2021-09-29 15:02] LABS: Basophils Percent Auto 0.7 % (0-2); Eosinophils Percent Auto 0.5 % (0-4); Hematocrit 25.5 % (42.0-52.0); Imm Gran Abs Auto 0.02 X10*3/uL (0.00-0.03); Imm Gran Pct Auto 0.3 % (0.0-0.4); Lymphocytes Percent Auto 15.5 % (20-40); Mean Corpuscular HGB Conc 31.4 g/dl (31.0-36.0); Mean Corpuscular Hemoglobin 26.1 pg (27.0-33.0); Mean Corpuscular Volume 83.3 fL (80.0-98.0); Monocytes Absolute Auto 0.9 X10*3/uL (0.1-1.2); Monocytes Percent Auto 15.1 % (2-11); Neutrophils Absolute Auto 4.2 x10*3/uL (2.0-8.3); Neutrophils Percent Auto 67.9 % (45-73); Platelet Count 112 X10*3/uL (160-400); Red Blood Count 3.06 X10*6/uL (4.60-5.80); Red Cell Distribution Width 17.3 % (11.0-16.0); White Blood Count 6.1 X10*3/uL (4.8-10.8)
[2021-09-29 15:22] LABS: Alanine Aminotransferase 24 U/L (0-40); Albumin Level 2.9 g/dL (3.5-5.0); Alkaline Phosphatase 119 U/L (39-117); Anion Gap 10 (12-20); Aspartate Amino Transferase 30 U/L (5-37); Blood Urea Nitrogen 17 mg/dL (9-16); Calcium 8.3 mg/dL (8.4-10.2); Carbon Dioxide 25 mmol/L (22-29); Chloride 106 mmol/L (96-108); Cholesterol 126 mg/dL; Estimated Glomerular Filt Rate 56; Glucose Fasting 167 mg/dL (60-99); HDL Cholesterol 26 mg/dL; LDL Cholesterol Calculated 85 mg/dl; Potassium 3.3 mmol/L (3.3-5.1); Sodium 138 mmol/L (135-145); Total Protein 6.5 g/dL (6.5-8.0); Triglycerides 75 mg/dL
[2021-09-29 15:30] LABS: Estimated Average Glucose 91 mg/dL; Hemoglobin A1c % 4.8 %
[2021-09-29 15:44] LABS: Vitamin D 25-OH Total 28.3 ng/mL (>30)
[2021-09-29 15:47] LABS: Appearance Urine CLEAR; Color Urine DK YELLOW; Glucose Urine UA NEG (NEG); Leukocyte Esterase Urine NEG (NEG); Nitrite Urine NEG (NEG); PH 5.5 (5.0-8.0); Specific Gravity - Urine 1.015 (1.005-1.025); Urine Blood NEG (NEG); Urine Ketones NEG (NEG); Urine Protein TRACE MG/DL (NEG-TRACE)
[2021-09-29 16:09] LABS: Creatinine Urine 190.32 mg/dL; Microalbum/Creatinine Ratio Ur 14.7 ug/mg cr
== END 2021-09-29 14:23 | disposition home or self-care (01) ==
LOC: HO.LAB 14:22
PROVIDERS: PCP Internal Medicine; Visit Provider Internal Medicine
DX: E78.00 Pure hypercholesterolemia, unspecified (principal); E11.9 Type 2 diabetes mellitus without complications; I10 Essential (primary) hypertension; E55.9 Vitamin D deficiency, unspecified
CPT/HCPCS: 36415; 80053; 80061; 81003; 82043; 82306; 83036; 84443; 85025

== ENCOUNTER 2021-10-13 10:52 | Outpatient (REF) | payer MEDICARE, MEDICAID, SELFPAY ==
[2021-10-13 11:10] LABS: MANUAL DIFF FLAG NO
[2021-10-13 11:41] LABS: Basophils Absolute Auto 0.1 X10*3/uL (0.0-0.2); Basophils Percent Auto 0.8 % (0-2); Eosinophils Absolute Auto 0.1 X10*3/uL (0.0-0.4); Eosinophils Percent Auto 1.4 % (0-4); Hematocrit 25.7 % (42.0-52.0); Hemoglobin 7.7 g/dl (14.0-18.0); Imm Gran Abs Auto 0.03 X10*3/uL (0.00-0.03); Imm Gran Pct Auto 0.5 % (0.0-0.4); Immature Retic Fraction 28.8 % (2.3-13.4); Lymphocytes Absolute Auto 0.6 X10*3/uL (1.2-4.9); Lymphocytes Percent Auto 9.1 % (20-40); Mean Corpuscular Hemoglobin 23.9 pg (27.0-33.0); Mean Corpuscular Volume 79.8 fL (80.0-98.0); Mean Platelet Volume 11.7 fL (9.4-12.4); Monocytes Absolute Auto 0.9 X10*3/uL (0.1-1.2); Monocytes Percent Auto 14.3 % (2-11); Neutrophils Absolute Auto 4.9 x10*3/uL (2.0-8.3); Neutrophils Percent Auto 73.9 % (45-73); Platelet Count 117 X10*3/uL (160-400); Red Blood Count 3.22 X10*6/uL (4.60-5.80); Retic HGB Equivalent 22.4 pg (30.0-35.0); Reticulocyte Percent 2.7 % (0.5-1.8); Reticulocytes Absolute 0.085 X10*6/uL (0.026-0.095); White Blood Count 6.6 X10*3/uL (4.8-10.8)
[2021-10-13 11:52] LABS: Appearance Urine CLEAR; Color Urine YELLOW; Glucose Urine UA NEG (NEG); Leukocyte Esterase Urine NEG (NEG); Nitrite Urine NEG (NEG); PH 5.5 (5.0-8.0); Urine Blood NEG (NEG); Urine Ketones NEG (NEG); Urine Protein NEG (NEG-TRACE)
[2021-10-13 12:08] LABS: Alanine Aminotransferase 19 U/L (0-40); Alkaline Phosphatase 123 U/L (39-117); Anion Gap 13 (12-20); Aspartate Amino Transferase 25 U/L (5-37); Bilirubin Total 2.5 mg/dL (0.0-1.0); Blood Urea Nitrogen 19 mg/dL (9-16); Calcium 8.4 mg/dL (8.4-10.2); Carbon Dioxide 22 mmol/L (22-29); Chloride 104 mmol/L (96-108); Cholesterol 133 mg/dL; Estimated Glomerular Filt Rate 52; Glucose Fasting 154 mg/dL (60-99); HDL Cholesterol 27 mg/dL; Iron 31 mcg/dL (45-160); LDL Cholesterol Calculated 89 mg/dl; Percent Iron Saturation 7 % (15-50); Potassium 3.9 mmol/L (3.3-5.1); Sodium 135 mmol/L (135-145); Total Iron Binding Capacity 430 mcg/dL (228-428); Total Protein 6.8 g/dL (6.5-8.0); Triglycerides 89 mg/dL; Unsaturated Iron Binding 399 ug/dL
[2021-10-13 12:21] LABS: Prostate Specific Antigen 0.18 ng/mL (<0.05-4.0)
[2021-10-13 12:40] LABS: Folate 15.1 ng/mL (> or = 4.0); Vitamin B12 831 pg/mL (200-900)
[2021-10-15 02:18] LABS: Erythropoietin (EPO) 168.9 mIU/mL (2.6-18.5)
== END 2021-10-13 10:53 | disposition home or self-care (01) ==
LOC: HO.LAB 10:52
PROVIDERS: Absent Provider Internal Medicine; PCP Internal Medicine; Visit Provider Nurse Practitioner Family
DX: Z12.5 Encounter for screening for malignant neoplasm of prostate (principal); E78.00 Pure hypercholesterolemia, unspecified; E53.8 Deficiency of other specified B group vitamins; I10 Essential (primary) hypertension; D50.9 Iron deficiency anemia, unspecified
CPT/HCPCS: 36415; 80053; 80061; 81003; 82607; 82668; 82746; 83540; 84153; 85025; 85045

== ENCOUNTER 2021-10-23 11:33 | Outpatient (REF) | payer MEDICARE, MEDICAID, SELFPAY ==
--- NOTE | ~2021-10-23 | MR_ITS ---
EXAMINATION: MR ABDOMEN WITHOUT AND WITH CONTRAST CLINICAL INFORMATION: Malignant neoplasm of liver. Question progression. COMPARISON: Previous CT of the abdomen and pelvis January 2019, MR of the abdomen September [address] from earlier the same day. TECHNIQUE: MR abdomen was performed without and with use of 9 mL intravenous Gadavist contrast. Postcontrast images are performed in multiphase dynamic sequences. Imaging was performed in 3 planes. FINDINGS: LUNG BASES: The visualized lung bases are unremarkable. LIVER, GALLBLADDER, AND BILIARY TREE: The liver is cirrhotic. There are stable postsurgical changes to the lateral right lobe of the liver. No evidence of recurrence is seen. There is signal loss seen in the central liver and the left lobe of the liver. When compared with our recent CT, this corresponds to new surgical clips or radiopaque material. There is left-sided intrahepatic biliary duct dilatation. There is a geographic area of early arterial-phase enhancement seen in the central liver involving the medial segment of the left lobe of the liver and some of the adjacent right lobe of the liver, for example axial image 29 postcontrast. Angular margins make appearance questionable for perfusion or posttreatment changes. There are nodular areas in the lateral segment of the left lobe of the liver and caudate lobe of the liver that demonstrate early arterial-phase enhancement and rapid washout and pseudocapsule formation suggestive of recurrent or residual disease. There is a 10 mm round lesion in the anterior segment of the right lobe of the liver with early arterial-phase enhancement, washout and pseudocapsule formation axial image 43 postcontrast suspicious for hepatocellular carcinoma. There is ascites. PANCREAS: Unremarkable. SPLEEN: The spleen is enlarged and measures 16 cm in length. ADRENAL GLANDS: Normal. KIDNEYS AND URETERS: There is a left renal cyst. The kidneys are normal in size, shape, and enhance symmetrically. No hydronephrosis. No perinephric stranding. GASTROINTESTINAL TRACT: No bowel obstruction. No ascites or fluid collection. ABDOMINAL WALL: There are multiple ventral and umbilical hernias. LYMPH NODES: No lymphadenopathy. VASCULAR: The splenic vein, extrahepatic portal vein, main portal vein and right portal vein are patent. The left portal vein is not patent. The right hepatic vein appears patent; however, there is mass effect on the right hepatic vein. The left and middle hepatic veins do not appear patent. There is mass effect on the intrahepatic IVC. The IVC superior-inferior to the intrahepatic segment appears patent. There are varices. OSSEOUS STRUCTURES: Marrow signal normal. MR/MR abdomen wo/w con IMPRESSION: Cirrhotic-appearing liver. Stable postsurgical changes to the lateral right lobe of the liver. New signal artifact in the central liver and lateral segment of the left lobe of the liver from previous surgery or intervention. Numerous nodular areas of early arterial-phase enhancement with rapid washout and pseudocapsule formation in the lateral segment of the left lobe of the liver and caudate lobe suggestive of recurrent current or residual disease. New left-sided biliary duct dilatation. Significant signal loss in the central liver likely related to artifact from posttreatment changes. There is early arterial-phase enhancement with sharp geographic margin may represent perfusion effect as opposed to recurrent or residual disease in the medial segment of the left lobe of the liver in some of the anterior segment of the right lobe. 1 cm early arterial-phase enhancing lesion in the anterior segment of the right lobe of the liver with rapid washout and pseudocapsule formation suspicious for hepatocellular carcinoma. Occluded left portal vein. Mass effect on the right hepatic vein and IVC. Middle and left hepatic veins may be occluded. Ascites. Splenomegaly. Varices. Gallstones. Multiple abdominal wall hernias. Left renal cyst.
--- NOTE | ~2021-10-23 | CT_ITS ---
EXAMINATION: CT CHEST WITHOUT CONTRAST CLINICAL INFORMATION: Hepatoma. COMPARISON: Previous chest CT most recent November 2020. TECHNIQUE: Multidetector volumetric CT imaging of the chest was done. Axial MIP volume rendering provided. Sagittal and coronal reformatted images were obtained. This CT examination was performed using dose optimization techniques as appropriate, variously including the following: *Automated exposure control *Adjustment of mA and/or kV according to patient size (this includes techniques or standardized protocols for targeted exams where dose is matched to indication/reason for exam; i.e. extremities or head) *Use of iterative reconstruction technique DLP: 203 mGy-cm FINDINGS: LUNGS: There are stable small pulmonary nodules. Largest pulmonary nodules are a 3 mm calcified left upper lobe nodule axial image 201 series 7 and 3 mm noncalcified peripheral or subpleural right lower lobe nodule adjacent to the major fissure axial image 243 series 7. No new pulmonary nodule. MEDIASTINUM: The mediastinum is normal. PLEURA: There is no pleural effusion. No pleural mass or thickening. AXILLA: There is gynecomastia. UPPER ABDOMEN: The liver is cirrhotic. There are postsurgical changes to the peripheral right lobe of the liver. There are surgical clips or devices central liver medial segment and lateral segment left lobe of the liver. There are gallstones in the gallbladder. The spleen is enlarged. There is a moderate amount of ascites. OSSEOUS STRUCTURES: There are degenerative changes of the spine. CT/CT chest wo con IMPRESSION: Stable small pulmonary nodules. Fleischner guidelines were followed.
== END 2021-10-23 11:34 | disposition home or self-care (01) ==
LOC: HO.CT 11:33
PROVIDERS: Visit Provider Internal Medicine
DX: C22.0 Liver cell carcinoma (principal)
CPT/HCPCS: 71250; 74183; A9585

== ENCOUNTER 2021-11-27 09:24 | Outpatient (REF) | payer MEDICARE, MEDICAID, SELFPAY ==
[2021-11-27 09:40] LABS: MANUAL DIFF FLAG NO
[2021-11-27 10:04] LABS: Basophils Absolute Auto 0.1 X10*3/uL (0.0-0.2); Basophils Percent Auto 0.9 % (0-2); Eosinophils Absolute Auto 0.1 X10*3/uL (0.0-0.4); Eosinophils Percent Auto 0.8 % (0-4); Hematocrit 24.6 % (42.0-52.0); Hemoglobin 7.5 g/dl (14.0-18.0); Imm Gran Abs Auto 0.02 X10*3/uL (0.00-0.03); Imm Gran Pct Auto 0.3 % (0.0-0.4); Lymphocytes Percent Auto 14.8 % (20-40); Mean Corpuscular HGB Conc 30.5 g/dl (31.0-36.0); Mean Corpuscular Hemoglobin 21.6 pg (27.0-33.0); Mean Corpuscular Volume 70.7 fL (80.0-98.0); Monocytes Absolute Auto 1.1 X10*3/uL (0.1-1.2); Monocytes Percent Auto 16.7 % (2-11); Neutrophils Absolute Auto 4.3 x10*3/uL (2.0-8.3); Neutrophils Percent Auto 66.5 % (45-73); Platelet Count 108 X10*3/uL (160-400); Red Blood Count 3.48 X10*6/uL (4.60-5.80); Red Cell Distribution Width 19.2 % (11.0-16.0); White Blood Count 6.5 X10*3/uL (4.8-10.8)
== END 2021-11-27 09:25 | disposition home or self-care (01) ==
LOC: HO.LAB 09:24
PROVIDERS: PCP Internal Medicine; Visit Provider Nurse Practitioner Family
DX: D64.9 Anemia, unspecified (principal)
CPT/HCPCS: 36415; 85025

== ENCOUNTER 2021-12-04 | Outpatient (REF) | payer MEDICARE, MEDICAID, SELFPAY | END 2021-12-04 00:01 | LOC: CF | PROVIDERS: Visit Provider Internal Medicine Gastroenterology | DX: C22.0 Liver cell carcinoma (principal); K74.60 Unspecified cirrhosis of liver; Z86.19 Personal history of other infectious and parasitic diseases | CPT/HCPCS: 99212 ==

== ENCOUNTER → 2021-12-04 12:00 | Day surgery (SDC) | payer MEDICARE, SELFPAY | PROVIDERS: PCP Internal Medicine; Visit Provider Radiology Diagnostic Radiology | DX: C22.0 Liver cell carcinoma (principal); K74.60 Unspecified cirrhosis of liver; Z53.8 Procedure and treatment not carried out for other reasons ==

== ENCOUNTER 2021-12-17 11:53 | Outpatient (REF) | payer MEDICARE, MEDICAID, SELFPAY | END 2021-12-17 11:54 | disposition home or self-care (01) | LOC: HO.MDS 11:53 | PROVIDERS: Visit Provider Internal Medicine | DX: D50.9 Iron deficiency anemia, unspecified (principal) | CPT/HCPCS: 96365; J1756 ==

== ENCOUNTER 2021-12-18 12:45 | Day surgery (SDC) | payer MEDICARE, SELFPAY ==
--- NOTE | ~2021-12-18 | US_ITS ---
EXAMINATION: ULTRASOUND-GUIDED PARACENTESIS CLINICAL INFORMATION: Ascites and hepatocellular carcinoma COMPARISON: Previous MR of the abdomen October 2021 TECHNIQUE: Procedure and risks and benefits including bleeding, infection and low blood pressure were discussed with the patient and informed consent was obtained. The right lower quadrant was prepped and draped in the usual sterile fashion. The skin and soft tissues were anesthetized with 1% lidocaine plain. Using ultrasound guidance and a 5 Micronesian rapid centesis catheter, access to the ascitic fluid was obtained. 6.7 L of clear yellow fluid was removed. No diagnostic specimen was sent. FINDINGS: There is a large amount of ascites. US/US paracentesis abd w/image IMPRESSION: Ultrasound-guided paracentesis.
[2021-12-18 13:04] VITALS: BMI 31.1
[2021-12-18 13:14] LABS: Glucose, Whole Blood 121 mg/dL (60-115)
[2021-12-18 13:22] LABS: INTERNATIONAL NORM RATIO 1.8 (0.9-1.1); Prothrombin Time 21.1 SEC (10.0-13.1)
[2021-12-18 13:24] LABS: Partial Thromboplastin Time 31.4 SEC (26.0-36.4)
--- NOTE | 2021-12-18 14:52 | HO.RADPN ---
RADIOLOGY Narrative Narrative: RLQ paracentesis performed using 5 fr catheter. L clear yellow fluid removed. No specimen sent. patient received 2 bottles of albumin.
[2021-12-18 15:45] VITALS: BP 95/53; PULSE 66; RESP 16; TEMP 36.4; O2SAT 100
[2021-12-18 15:59] VITALS: BP 107/66; PULSE 67; RESP 16; O2SAT 100
[2021-12-18] MEDS: Lidocaine HCl 1 % 20 ML VIAL SUBCUT (16:03)
[2021-12-18 16:15] VITALS: BP 101/50; PULSE 65; RESP 16; O2SAT 99
[2021-12-18 16:30] VITALS: BP 104/57; PULSE 69; RESP 16; O2SAT 99
[2021-12-18 16:43] VITALS: BP 100/48; PULSE 68; RESP 16; TEMP 36.6; O2SAT 99
== END 2021-12-18 16:49 | disposition home or self-care (01) ==
PROVIDERS: Radiology Diagnostic Radiology; PCP Internal Medicine; Visit Provider Radiology Diagnostic Radiology
DX: R18.8 Other ascites (principal); K74.60 Unspecified cirrhosis of liver; C22.0 Liver cell carcinoma; J80 Acute respiratory distress syndrome; B97.29 Other coronavirus as the cause of diseases classified elsewhere; I10 Essential (primary) hypertension; N40.0 Benign prostatic hyperplasia without lower urinary tract symptoms; E78.5 Hyperlipidemia, unspecified; A53.0 Latent syphilis, unspecified as early or late; Z86.73 Personal history of transient ischemic attack (TIA), and cerebral infarction without residual deficits; F17.210 Nicotine dependence, cigarettes, uncomplicated; Z98.890 Other specified postprocedural states; Z79.899 Other long term (current) drug therapy; Z79.82 Long term (current) use of aspirin
CPT/HCPCS: 36415; 49083; 82947; 85610; 85730; P9047

== ENCOUNTER 2021-12-24 13:59 | Outpatient (REF) | payer MEDICARE, MEDICAID, SELFPAY | END 2021-12-24 14:00 | disposition home or self-care (01) | LOC: HO.MDS 13:59 | PROVIDERS: PCP Internal Medicine; Visit Provider Internal Medicine | DX: D50.9 Iron deficiency anemia, unspecified (principal) | CPT/HCPCS: 96365; J1756 ==

== ENCOUNTER → 2021-12-28 08:45 | Outpatient (BNVA) | payer MEDICARE, MEDICAID, SELFPAY | PROVIDERS: PCP Internal Medicine; Visit Provider Internal Medicine Gastroenterology | DX: K42.9 Umbilical hernia without obstruction or gangrene (principal) | CPT/HCPCS: 99212 ==

== ENCOUNTER 2021-12-28 09:06 | Inpatient (IN) | payer MEDICARE, MEDICAID, SELFPAY ==
--- NOTE | ~2021-12-28 | CT_ITS ---
EXAMINATION: CT ABDOMEN AND PELVIS WITHOUT CONTRAST CLINICAL INFORMATION: Umbilical hernia. Needs oral contrast. COMPARISON: MRI abdomen 10/23/2021 TECHNIQUE: Multidetector volumetric imaging was performed from the superior aspect of the liver through the pubic symphysis. Sagittal and coronal reformatted images were obtained on the technologist's workstation. This CT examination was performed using dose optimization techniques as appropriate, variously including the following: *Automated exposure control *Adjustment of mA and/or kV according to patient size (this includes techniques or standardized protocols for targeted exams where dose is matched to indication/reason for exam; i.e. extremities or head) *Use of iterative reconstruction technique DLP: 632 mGy-cm FINDINGS: LUNG BASES: The visualized lung bases are unremarkable. LIVER, GALLBLADDER, AND BILIARY TREE: The liver is normal size, lobulated with postsurgical changes in medial segment of liver were an enhancing lesion was seen on the previous study. No mass effect seen. There is diffuse ascites. There are multiple radiopaque gallstones without wall thickening. No intrahepatic ductal dilatation seen PANCREAS: Unremarkable. SPLEEN: Unremarkable. ADRENAL GLANDS: Unremarkable. KIDNEYS AND URETERS: The kidneys are normal in size, shape, and attenuation.There is a 2.2 x 2.2 cm cyst upper/mid pole left kidney. Nonobstructive 4 mm radiopaque calculi seen in lower pole left kidney. A 3 minute nonobstructive calculi seen in the upper pole right kidney. There is no caliectasis or hydronephrosis in the either side. There is diffuse large ascites. BLADDER: Unremarkable. GASTROINTESTINAL TRACT: Scattered stool and gas is seen throughout the colon without distention. The small bowel loops are normal caliber. Appendix is not visualized. The stomach is nondistended. There is diffuse ascites without peritoneal enhancement or nodularity. ABDOMINAL WALL: There is a umbilical hernia containing fat and is supraumbilical hernia containing mesentery LYMPH NODES: Normal. VASCULAR: The abdominal aorta is normal caliber. PELVIC VISCERA: The urinary bladder is nondistended. The prostate gland is mildly enlarged. OSSEOUS STRUCTURES: No lytic or sclerotic process seen.. CT/CT abdomen pelvis wo con IMPRESSION: postsurgical changes following medial segment left hepatic lobe lesion resection. The liver is attenuated and lobulated contour suggestive cirrhosis. Diffuse ascites. There is umbilical hernia containing fat and fluid and a supraumbilical midline hernia containing peritoneal. Cholelithiasis without wall thickening. Fleischner guidelines were followed.
[2021-12-28 09:14] VITALS: BP 106/59; PULSE 64; RESP 19; TEMP 36.6; O2SAT 100; BMI 30.9
[2021-12-28 09:38] LABS: MANUAL DIFF FLAG NO
[2021-12-28 09:51] LABS: Basophils Absolute Auto 0.1 X10*3/uL (0.0-0.2); Eosinophils Absolute Auto 0.2 X10*3/uL (0.0-0.4); Eosinophils Percent Auto 2.2 % (0-4); Hematocrit 28.7 % (42.0-52.0); Imm Gran Abs Auto 0.05 X10*3/uL (0.00-0.03); Imm Gran Pct Auto 0.7 % (0.0-0.4); Lymphocytes Absolute Auto 0.7 X10*3/uL (1.2-4.9); Lymphocytes Percent Auto 9.4 % (20-40); Mean Corpuscular HGB Conc 31.4 g/dl (31.0-36.0); Mean Corpuscular Hemoglobin 23.4 pg (27.0-33.0); Mean Corpuscular Volume 74.7 fL (80.0-98.0); Monocytes Absolute Auto 1.3 X10*3/uL (0.1-1.2); Monocytes Percent Auto 18.5 % (2-11); Neutrophils Absolute Auto 4.9 x10*3/uL (2.0-8.3); Neutrophils Percent Auto 68.2 % (45-73); Platelet Count 113 X10*3/uL (160-400); Red Blood Count 3.84 X10*6/uL (4.60-5.80); Red Cell Distribution Width 24.7 % (11.0-16.0); White Blood Count 7.1 X10*3/uL (4.8-10.8)
[2021-12-28 09:57] LABS: Ammonia 74 umol/L (13-55)
[2021-12-28 10:02] LABS: Alanine Aminotransferase 18 U/L (0-40); Albumin Level 3.4 g/dL (3.5-5.0); Alkaline Phosphatase 125 U/L (39-117); Anion Gap 16 (12-20); Aspartate Amino Transferase 26 U/L (5-37); Bilirubin Direct 1.2 mg/dL (0.0-0.5); Bilirubin Total 2.7 mg/dL (0.0-1.0); Blood Urea Nitrogen 23 mg/dL (9-16); Calcium 9.2 mg/dL (8.4-10.2); Carbon Dioxide 22 mmol/L (22-29); Chloride 104 mmol/L (96-108); Creatinine Clr Calc Pharmacy 41.6; Estimated Glomerular Filt Rate 42; Glucose Random 133 mg/dL (60-115); Lipase 111 U/L (8-78); Potassium 5.4 mmol/L (3.3-5.1); Sodium 137 mmol/L (135-145); Total Protein 7.1 g/dL (6.5-8.0)
[2021-12-28 10:06] LABS: Lactic Acid 2.1 mmol/L (0.5-2.0)
--- NOTE | 2021-12-28 10:33 | ED_ITS ---
HPI - Abdominal Pain General Chief Complaint: Abdominal Pain Stated Complaint: Hernia sent by Dr Hansen Time Seen by Provider: 12/28/21 10:31 Source: patient Mode of arrival: ambulatory Limitations: no limitations History of Present Illness HPI narrative: Pt was referred to US from GI Dr Hansen,seen today at the [facility] because umbelical pain X [address] Hansen concern about incarceration of Umbelical hernia> Pt has hx of decompensated cirrhosis of the liver MD elicited complaint: abdominal pain Pertinent past history: other (cirrhosis) Onset (ago): week(s) (1) Pain Consistency: constant Location: other (umbelical) Radiation: none Migration to: no migration Exacerbating factors: nothing Relieving factors: nothing Related Data Home Medications Medication Instructions Recorded Confirmed cholecalciferol (vitamin D3) 50 50 mcg PO DAILY 03/03/20 12/14/21 mcg (2,000 unit) capsule aspirin 81 mg tablet 81 mg PO DAILY 03/25/20 12/14/21 furosemide 20 mg tablet (Lasix) 40 mg PO BID 08/04/21 12/14/21 iron,carbonyl 65 mg-vitamin C 125 1 tab PO DAILY 08/04/21 12/14/21 mg tablet,delayed release (Vitron-C) nadolol 20 mg tablet 30 mg PO QPM 08/04/21 12/14/21 spironolactone 50 mg tablet 100 mg PO BID 08/04/21 12/14/21 pantoprazole 40 mg tablet,delayed 40 mg PO BID 12/04/21 12/14/21 release potassium chloride 20 mEq 20 meq PO DAILY 12/04/21 12/14/21 tablet,extended release(part/cryst) (Klor-Con M) sucralfate 1 gram tablet 1 g PO QID 12/04/21 12/14/21 amoxicillin 500 mg capsule 1 cap PO Q8H 12/07/21 12/14/21 Previous Rx's Medication Instructions Recorded sildenafil 100 mg tablet 100 mg PO DAILY PRN sexual 07/15/20 activity 30 days #30 tabs lidocaine 5 % topical patch 1 patch topical DAILY PRN pain 30 08/28/21 days #30 ea Januvia 25 mg tablet (sitagliptin) 25 mg PO DAILY 30 days #30 tabs 11/10/21 diphenhydramine HCl 25 mg capsule 25 - 50 mg PO BEDTIME PRN for 11/10/21 (Banophen) insomnia #60 caps Allergies Allergy/AdvReac Type Severity Reaction Status Date / Time No Known Allergies Allergy Verified 12/28/21 08:52 [No Known Allergies*] Review of Systems Constitutional: Reports no additional constitutional complaints Reports system reviewed and no additional complaints, except as documented Cardiovascular: Reports no additional cardiovascular complaints Respiratory: Reports no additional respiratory complaints Gastrointestinal: Reports no additional gastrointestinal complaints Reports system reviewed and no additional complaints, except as documented [facility] Past Medical History Medical History Acute respiratory disease due to COVID-19 virus Benign essential hypertension Benign prostate hyperplasia Cerebrovascular accident (CVA) Cirrhosis of liver without ascites Dyslipidemia Hepatocellular carcinoma History of hepatitis C 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 Obesity (BMI 30-39.9) Smoker Umbilical hernia Surgical History History of esophagogastroduodenoscopy (EGD) (~2019) History of resection of liver History of surgery Hx of colonoscopy Family History Family History Father Diabetes Mother Diabetes Alzheimer disease Chronic mental illness Brother No problems noted. Brother No problems noted. Brother No problems noted. Sister No problems noted. Son No problems noted. Son No problems noted. Son No problems noted. Other Substance abuse Social History Social History Household Members: Significant Other Housing: Apartment Alcohol intake: former Patient Tobacco Use Status: Current everyday Tobacco user Tobacco use type: Cigarette Second Hand Smoke Exposure: Yes Advance Directives: Yes Advance Directives Information Provided: Yes Advance Directives on File: No Current occupational status: unemployed Cognitive needs: No Hearing needs: No Vision needs: Yes Physical Exam ED Vital Signs: Vital Signs - 24 hr 12/28/21 09:14 12/28/21 11:29 Temperature 98 F 97.7 F Pulse Rate 64 64 Respiratory Rate 19 14 Blood Pressure 106/59 L 100/55 L Pulse Oximetry 100 100 Oxygen Delivery Method Room Air Room Air BMI result Body Mass Index 30.9 Const General: cooperative, no acute distress and well developed Nutritional Appearance: average body habitus Orientation/consciousness: patient oriented x3 Limitations: no limitations HENMT Head: Yes normal to inspection Ears: hearing grossly normal bilaterally General nose exam: Normal external nose present Face and sinus: Yes normal facial exam Mouth: Normal oral and palatal mucosa present Teeth and gingiva: dentition normal Throat: Yes posterior oropharynx normal Neck Neck: Yes normal visual inspection Chest Chest palpation & inspection: normal inspection of the chest Resp Effort & Inspection: normal respiratory effort Auscultation: clear to auscultation bilaterally Cardio Jugular venous distension: no JVD Rate: regular rate Rhythm: regular rhythm GI Other: Patient denies ascites there is an area of redness and tenderness in the periumbilical area Inspection: Yes normal to inspection Palpation (GI): Soft to palpation Percussion: Yes normal to percussion Skin General skin exam: no rashes or lesions noted and elasticity normal Neuro General: patient oriented x3 Course Reevaluation(s) Reevaluation #1: Ct available at thsi point,Consulted surgery Dr Dailey, pt remain stable no toxic,lactic acid noted but this is because he has liver disease and clerance of lavctic acid is impaired in pt with cirrhosis. He has no fever,no toxic,normotensive and afebrile. Reevaluation #2: I called ( pt was followed at in the past) for transfer as well he was accepted but no ambulance available till Tomorrow after 11 AM I spoke again with Dr Hansen ,Dr Vyas,Dr Goel,Sr Garrett jiménez,pt will be admitted to medicine with Surgery consult. I asked the pt about code status he is DNR/I Time: 15:52 Reevaluation #3: Dr Vyas is reevaluating the pt at this time Time: 15:53 MDM - Abdominal Pain Lab Data Result diagrams: 12/28/21 09:33 12/28/21 09:33 Labs: Lab Results 12/28/21 12/28/21 12/28/21 Range/Units 09:33 09:33 09:33 WBC 7.1 (4.8-10.8) X10*3/uL RBC 3.84 L (4.60-5.80) X10*6/uL Hgb 9.0 L (14.0-18.0) g/dl Hct 28.7 L (42.0-52.0) % MCV 74.7 L (80.0-98.0) fL MCH 23.4 L (27.0-33.0) pg MCHC 31.4 (31.0-36.0) g/dl RDW 24.7 H (11.0-16.0) % Plt Count 113 L (160-400) X10*3/uL MPV Not Reportable Immature Gran % (Auto) 0.7 H (0.0-0.4) % Neut % (Auto) 68.2 (45-73) % Lymph % (Auto) 9.4 L (20-40) % [place] % (Auto) 18.5 H (2-11) % Eos % (Auto) 2.2 (0-4) % Baso % (Auto) 1.0 (0-2) % Lymph # (Auto) 0.7 L (1.2-4.9) X10*3/uL [place] # (Auto) 1.3 H (0.1-1.2) X10*3/uL Eos # (Auto) 0.2 (0.0-0.4) X10*3/uL Baso # (Auto) 0.1 (0.0-0.2) X10*3/uL Abs Immat Gran (auto) 0.05 H (0.00-0.03) X10*3/uL Absolute Neuts (auto) 4.9 (2.0-8.3) x10*3/uL Absolute Nucleated RBC 0.000 (0.0-0.012) X10*3/uL Nucleated RBC % (auto) 0.0 (0.0-0.2) /100WBC PT (10.0-13.1) SEC INR (0.9-1.1) APTT (26.0-36.4) SEC Sodium 137 (135-145) mmol/L Potassium 5.4 H (3.3-5.1) mmol/L Chloride 104 (96-108) mmol/L Carbon Dioxide 22 (22-29) mmol/L Anion Gap 16 (12-20) BUN 23 H (9-16) mg/dL Creatinine 1.66 H (0.5-1.4) mg/dL Estim Creat Clear Calc 41.6 Estimated GFR 42 Random Glucose 133 H (60-115) mg/dL Lactic Acid 2.1 H* (0.5-2.0) mmol/L Lactic Acid F/U @ 2Hr (0.5-2.0) mmol/L Calcium 9.2 (8.4-10.2) mg/dL Total Bilirubin 2.7 H (0.0-1.0) mg/dL Direct Bilirubin 1.2 H (0.0-0.5) mg/dL AST 26 (5-37) U/L ALT 18 (0-40) U/L Alkaline Phosphatase 125 H (39-117) U/L Ammonia (13-55) umol/L Total Protein 7.1 (6.5-8.0) g/dL Albumin 3.4 L (3.5-5.0) g/dL Lipase 111 H (8-78) U/L 12/28/21 12/28/21 12/28/21 Range/Units 09:33 11:13 12:05 WBC (4.8-10.8) X10*3/uL RBC (4.60-5.80) X10*6/uL Hgb (14.0-18.0) g/dl Hct (42.0-52.0) % MCV (80.0-98.0) fL MCH (27.0-33.0) pg MCHC (31.0-36.0) g/dl RDW (11.0-16.0) % Plt Count (160-400) X10*3/uL MPV Immature Gran % (Auto) (0.0-0.4) % Neut % (Auto) (45-73) % Lymph % (Auto) (20-40) % [place] % (Auto) (2-11) % Eos % (Auto) (0-4) % Baso % (Auto) (0-2) % Lymph # (Auto) (1.2-4.9) X10*3/uL [place] # (Auto) (0.1-1.2) X10*3/uL Eos # (Auto) (0.0-0.4) X10*3/uL Baso # (Auto) (0.0-0.2) X10*3/uL Abs Immat Gran (auto) (0.00-0.03) X10*3/uL Absolute Neuts (auto) (2.0-8.3) x10*3/uL Absolute Nucleated RBC (0.0-0.012) X10*3/uL Nucleated RBC % (auto) (0.0-0.2) /100WBC PT 19.5 H (10.0-13.1) SEC INR 1.7 H (0.9-1.1) APTT 29.7 (26.0-36.4) SEC Sodium (135-145) mmol/L Potassium (3.3-5.1) mmol/L Chloride (96-108) mmol/L Carbon Dioxide (22-29) mmol/L Anion Gap (12-20) BUN (9-16) mg/dL Creatinine (0.5-1.4) mg/dL Estim Creat Clear Calc Estimated GFR Random Glucose (60-115) mg/dL Lactic Acid (0.5-2.0) mmol/L Lactic Acid F/U @ 2Hr 1.5 (0.5-2.0) mmol/L Calcium (8.4-10.2) mg/dL Total Bilirubin (0.0-1.0) mg/dL Direct Bilirubin (0.0-0.5) mg/dL AST (5-37) U/L ALT (0-40) U/L Alkaline Phosphatase (39-117) U/L Ammonia 74 H (13-55) umol/L Total Protein (6.5-8.0) g/dL Albumin (3.5-5.0) g/dL Lipase (8-78) U/L Imaging Data CT scan - abdomen: Radiologist's impression: ABDOMINAL WALL: There is a umbilical hernia containing fat and is supraumbilical hernia containing mesentery LYMPH NODES: Normal. VASCULAR: The abdominal aorta is normal caliber. PELVIC VISCERA: The urinary bladder is nondistended. The prostate gland is mildly enlarged.? OSSEOUS STRUCTURES: No lytic or sclerotic process seen..? CT/CT abdomen pelvis wo con IMPRESSION: postsurgical changes following medial segment left hepatic lobe lesion resection. The liver is attenuated and lobulated contour suggestive cirrhosis. ? Diffuse ascites. ? There is umbilical hernia containing fat and? fluid and a supraumbilical midline hernia containing peritoneal. ? Cholelithiasis without wall thickening.? ? Fleischner guidelines were followed. Discharge Plan Discharge Clinical Impression: Umbilical hernia, Abdominal pain, Ascites Patient Disposition: Admitted As Inpatient
[2021-12-28 11:26] LABS: INTERNATIONAL NORM RATIO 1.7 (0.9-1.1); Prothrombin Time 19.5 SEC (10.0-13.1)
[2021-12-28 11:28] LABS: Partial Thromboplastin Time 29.7 SEC (26.0-36.4)
[2021-12-28 11:29] VITALS: BP 100/55; PULSE 64; RESP 14; TEMP 36.5; O2SAT 100
[2021-12-28 11:37] LABS: Reflex Lactate? Lactic Acid Added
[2021-12-28] MEDS: Barium Sulfate Oral (Berry) 450 ML ORAL.SUSP 900 ML PO (12:06)
[2021-12-28 12:20] LABS: ~Lactic Acid-LAB USE ONLY 1.5 mmol/L (0.5-2.0)
--- NOTE | 2021-12-28 14:46 | PC.NURSE ---
CALL PLACED TO [facility] TRANSFER LINE [phone] @2 DR GASPAR REQUEST @ THIS TIME JYOTI ANSWERS, TAKES PT INFO THEN ASKS TO SPEAK WITH DR CHASITY GASPAR TAKES OVER CALL RIGHT AWAY
[2021-12-28] MEDS: Phytonadione (Vit K1) 10 MG in 0.9 % Sodium Chloride 50 ML 51 MG IV (14:47)
[2021-12-28] MEDS: Piperacillin Sodium/Tazobactam 4.5 GM in 0.9 % Sodium Chloride 100 ML IV (14:51)
--- NOTE | 2021-12-28 14:56 | PM.GICN ---
History of Present Illness Data of Consult Service Date: 12/28/21 Requesting physician: Justino Cornell Primary Care Provider: MD ROCHELLE Biggs Reason for consult: incarcerated umbilical hernia 66 yr old m with end stage liver disease complicated by HCC who I am seeing for assessment for incarcerated umbilical hernia Patient has Hx of HCC complicating cirrhosis s/p TACE, XRT with Invasion of portal vein and had been getting treatment at [facility] but unfortunately the HCC was not responsive He had been getting iron infusions and regular paracentesis for comfort. Now he had noted increasingly swollen umbilical hernia for 1 week with 5/10 pain pain is constant and uncomfortable no relieving or exacerbating factors not tried any analgesics he denies fever,s chills, increasing abdominal distention or discharge, no nausea or vomiting no melena no rectal bleeding Review of Systems Constitutional: Constitutional: Reports no additional constitutional complaints ENT: Reports system reviewed and no additional complaints, except as documented Cardiovascular: Cardiovascular: Reports no additional cardiovascular complaints Respiratory: Respiratory: Reports no additional respiratory complaints Gastrointestinal: Gastrointestinal: Reports no additional gastrointestinal complaints Neurologic: Reports system reviewed and no additional complaints, except as documented Endocrine: Endocrine: Reports no additional endocrine complaints Hematologic/Lymphatic: Hematologic/Lymphatic: Reports easy bruising Allergic/Immunologic: Allergic/Immunologic: Reports no additional allergic/immunologic complaints [facility] Past Medical History Medical History Acute respiratory disease due to COVID-19 virus Benign essential hypertension Benign prostate hyperplasia Cerebrovascular accident (CVA) Cirrhosis of liver without ascites Dyslipidemia Hepatocellular carcinoma History of hepatitis C 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 Obesity (BMI 30-39.9) Smoker Umbilical hernia Family History Family History Father Diabetes Mother Diabetes Alzheimer disease Chronic mental illness Brother No problems noted. Brother No problems noted. Brother No problems noted. Sister No problems noted. Son No problems noted. Son No problems noted. Son No problems noted. Other Substance abuse Surgical History Surgical History History of esophagogastroduodenoscopy (EGD) (~2019) History of resection of liver History of surgery Hx of colonoscopy Social History Social History Household Members: Significant Other Housing: Apartment Alcohol intake: former Patient Tobacco Use Status: Current everyday Tobacco user Tobacco use type: Cigarette Second Hand Smoke Exposure: Yes Advance Directives: Yes Advance Directives Information Provided: Yes Advance Directives on File: No Current occupational status: unemployed Cognitive needs: No Hearing needs: No Vision needs: Yes Meds Allergies Allergy/AdvReac Type Severity Reaction Status Date / Time No Known Allergies Allergy Verified 12/28/21 08:52 [No Known Allergies*] Active Medications: Current Medications Vancomycin HCl 1,250 mg/ (Sodium Chloride) 250 mls @ 166.667 mls/hr IV ONCE ONE Stop: 12/28/21 15:18 Phytonadione 10 mg/ Sodium (Chloride) 51 mls @ 51 mls/hr IV ONCE ONE Stop: 12/28/21 15:09 Last Admin: 12/28/21 14:47 Dose: 51 mls/hr Home Medications Medication Instructions Recorded Confirmed Last Taken Type cholecalciferol (vitamin D3) 50 50 mcg PO DAILY 03/03/20 12/14/21 Unknown History mcg (2,000 unit) capsule aspirin 81 mg tablet 81 mg PO DAILY 03/25/20 12/14/21 Unknown History furosemide 20 mg tablet (Lasix) 40 mg PO BID 08/04/21 12/14/21 Unknown History iron,carbonyl 65 mg-vitamin C 125 1 tab PO DAILY 08/04/21 12/14/21 Unknown History mg tablet,delayed release (Vitron-C) nadolol 20 mg tablet 30 mg PO QPM 08/04/21 12/14/21 Unknown History spironolactone 50 mg tablet 100 mg PO BID 08/04/21 12/14/21 Unknown History pantoprazole 40 mg tablet,delayed 40 mg PO BID 12/04/21 12/14/21 Unknown History release potassium chloride 20 mEq 20 meq PO DAILY 12/04/21 12/14/21 Unknown History tablet,extended release(part/cryst) (Klor-Con M) sucralfate 1 gram tablet 1 g PO QID 12/04/21 12/14/21 Unknown History amoxicillin 500 mg capsule 1 cap PO Q8H 12/07/21 12/14/21 Unknown History Physical Exam Vital Signs: Vital Signs: Last Vital Signs Temp 97.7 F 12/28/21 11:29 Pulse 64 12/28/21 11:29 Resp 14 12/28/21 11:29 BP 100/55 L 12/28/21 11:29 Pulse Ox 100 12/28/21 11:29 O2 Del Method 12/28/21 11:29 BMI result Body Mass Index 30.9 Const: General: cooperative, no acute distress and well developed Nutritional Appearance: average body habitus Orientation/consciousness: patient oriented x3 Limitations: no limitations HEENT: Head: Yes normal to inspection Ears: hearing grossly normal bilaterally General nose exam: Normal external nose present Face and sinus: Yes normal facial exam Mouth: Normal oral and palatal mucosa present Teeth and gingiva: dentition normal Throat: Yes posterior oropharynx normal Neck: Neck: Yes normal visual inspection Chest: Chest palpation & inspection: normal inspection of the chest Resp: Effort & Inspection: normal respiratory effort Auscultation: clear to auscultation bilaterally Cardio: Jugular venous distension: no JVD Rate: regular rate Rhythm: regular rhythm GI: Other: Patient denies ascites there is an area of redness and tenderness in the periumbilical area Inspection: Yes normal to inspection Palpation (GI): Soft to palpation and Hernia present umbilical (dusky appearing, not reducible ) Percussion: Yes tympanic to percussion Skin: General skin exam: no rashes or lesions noted and elasticity normal Neuro: General: patient oriented x3 Extrem: General: Yes normal to inspection Psych: Appearance: grossly normal Results Labs CBC & Chem 7: 12/28/21 09:33 12/28/21 09:33 Labs: Short CBC 12/28/21 Range/Units 09:33 WBC 7.1 (4.8-10.8) X10*3/uL Hgb 9.0 L (14.0-18.0) g/dl Hct 28.7 L (42.0-52.0) % Plt Count 113 L (160-400) X10*3/uL BMP 12/28/21 09:33 Sodium 137 Potassium 5.4 H Chloride 104 Carbon Dioxide 22 BUN 23 H Creatinine 1.66 H Calcium 9.2 Liver Function 12/28/21 Range/Units 09:33 Total Bilirubin 2.7 H (0.0-1.0) mg/dL Direct Bilirubin 1.2 H (0.0-0.5) mg/dL AST 26 (5-37) U/L ALT 18 (0-40) U/L Alkaline Phosphatase 125 H (39-117) U/L Albumin 3.4 L (3.5-5.0) g/dL Imaging CT scan - abdomen: Attestation: I personally reviewed and interpreted this imaging study as follows: (Ct with ascites, hernia, with stranding possibly incarcerated ) Assessment and Plan (1) Abdominal pain: Status: Acute (2) Umbilical hernia: Status: Acute (3) Cirrhosis of liver: Status: Acute Plan 1/ Incarcerated umbilical hernia, background of decompensated cirrhosis, higher surgical risk --CP C with lucio op risk 82% per scoring criteria PLAN: 1/ Recommend surgical consult, if unable to manage or deemed too high risk then try to transfer [place] 2/ drain ascites if possible may help reduce the hernia, place ice pack 3/ antibiotic therapy 4/ guarded prognosis given co morbidities 5/ hematology on board to help with coagulopathy Procedures Date of Service Date of Service: 12/28/21
--- NOTE | 2021-12-28 15:01 | PM.CNGS ---
History of Present Illness Consult details Consult date: 12/28/21 Reason for consult: abdominal pain Narrative: The patient is a 66-year-old gentleman with advanced hepatocellular cancer, status post hepatic resection with multifocal hepatic recurrence and related cirrhosis with ascites who has portal vein invasion of the HCC. The patient has had a longstanding umbilical hernia that became incarcerated and he was sent from to the emergency department. I was consulted and asked to facilitate the patient's care. Patient denies any prior history of hernia repair. He notes that the hernia had been incarcerated for some time and that when he was seen at [facility] he was told to keep an eye on it. The patient reports abdominal pain in that he has been unable to eat since yesterday, however he notes he is hungry and requested food if possible, before any operations are done. Review of Systems Review of Systems: Yes all other systems are reviewed and are negative Constitutional: Constitutional: Reports as per [facility] Past Medical History Medical History Acute respiratory disease due to COVID-19 virus Benign essential hypertension Benign prostate hyperplasia Cerebrovascular accident (CVA) Cirrhosis of liver without ascites Dyslipidemia Hepatocellular carcinoma History of hepatitis C 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 Obesity (BMI 30-39.9) Smoker Umbilical hernia Family History Family History Father Diabetes Mother Diabetes Alzheimer disease Chronic mental illness Brother No problems noted. Brother No problems noted. Brother No problems noted. Sister No problems noted. Son No problems noted. Son No problems noted. Son No problems noted. Other Substance abuse Surgical History Surgical History History of esophagogastroduodenoscopy (EGD) (~2019) History of resection of liver History of surgery Hx of colonoscopy Social History Social History Household Members: Significant Other Housing: Apartment Alcohol intake: former Patient Tobacco Use Status: Current everyday Tobacco user Tobacco use type: Cigarette Second Hand Smoke Exposure: Yes Advance Directives: Yes Advance Directives Information Provided: Yes Advance Directives on File: No Current occupational status: unemployed Cognitive needs: No Hearing needs: No Vision needs: Yes Meds Allergies Allergy/AdvReac Type Severity Reaction Status Date / Time No Known Allergies Allergy Verified 12/28/21 08:52 [No Known Allergies*] Active Medications: Current Medications Vancomycin HCl 1,250 mg/ (Sodium Chloride) 250 mls @ 166.667 mls/hr IV ONCE ONE Stop: 12/28/21 15:18 Phytonadione 10 mg/ Sodium (Chloride) 51 mls @ 51 mls/hr IV ONCE ONE Stop: 12/28/21 15:09 Last Admin: 12/28/21 14:47 Dose: 51 mls/hr Home Medications Medication Instructions Recorded Confirmed Last Taken Type cholecalciferol (vitamin D3) 50 50 mcg PO DAILY 03/03/20 12/14/21 Unknown History mcg (2,000 unit) capsule aspirin 81 mg tablet 81 mg PO DAILY 03/25/20 12/14/21 Unknown History furosemide 20 mg tablet (Lasix) 40 mg PO BID 08/04/21 12/14/21 Unknown History iron,carbonyl 65 mg-vitamin C 125 1 tab PO DAILY 08/04/21 12/14/21 Unknown History mg tablet,delayed release (Vitron-C) nadolol 20 mg tablet 30 mg PO QPM 08/04/21 12/14/21 Unknown History spironolactone 50 mg tablet 100 mg PO BID 08/04/21 12/14/21 Unknown History pantoprazole 40 mg tablet,delayed 40 mg PO BID 12/04/21 12/14/21 Unknown History release potassium chloride 20 mEq 20 meq PO DAILY 12/04/21 12/14/21 Unknown History tablet,extended release(part/cryst) (Klor-Con M) sucralfate 1 gram tablet 1 g PO QID 12/04/21 12/14/21 Unknown History amoxicillin 500 mg capsule 1 cap PO Q8H 12/07/21 12/14/21 Unknown History Physical Exam Vital Signs: Vital Signs: Last Vital Signs Temp 97.7 F 12/28/21 11:29 Pulse 64 12/28/21 11:29 Resp 14 12/28/21 11:29 BP 100/55 L 12/28/21 11:29 Pulse Ox 100 12/28/21 11:29 O2 Del Method 12/28/21 11:29 BMI result Body Mass Index 30.9 The patient is non-toxic & in good spirits NC/AT, PERRLA, EOMI Mood, affect & judgment all appear appropriate Sclera anicteric conjunctiva pink and moist Oropharynx is clear with no aphthous ulcers, Mallampati class 4, mucous membranes moist Neck is supple with no masses, adenopathy or bruits Thyroid is nontender and free of dominant masses Heart is regular, normal S1-S2 no rubs or murmurs Lungs are clear and equal anteriorly with no audible wheezing, rubs or dullness to percussion No CVA tenderness present Abdomen is ascitic with AN UMBILICAL HERNIA. The umbilical skin is dusky/purple-black with purulence. No HSM, rebound, rigidity, guarding, masses or bruits are present. Rectal exam is deferred Skin has good turgor and is free of rashes. Dullness to percussion consistent with ascites is present. Extremities free of cyanosis clubbing edema Results Labs Result diagrams: 12/28/21 09:33 12/28/21 09:33 Labs: Abnormal lab results 12/28/21 12/28/21 12/28/21 Range/Units 09:33 09:33 09:33 RBC 3.84 L (4.60-5.80) X10*6/uL Hgb 9.0 L (14.0-18.0) g/dl Hct 28.7 L (42.0-52.0) % MCV 74.7 L (80.0-98.0) fL MCH 23.4 L (27.0-33.0) pg RDW 24.7 H (11.0-16.0) % Plt Count 113 L (160-400) X10*3/uL Immature Gran % (Auto) 0.7 H (0.0-0.4) % Lymph % (Auto) 9.4 L (20-40) % [place] % (Auto) 18.5 H (2-11) % Lymph # (Auto) 0.7 L (1.2-4.9) X10*3/uL [place] # (Auto) 1.3 H (0.1-1.2) X10*3/uL Abs Immat Gran (auto) 0.05 H (0.00-0.03) X10*3/uL PT (10.0-13.1) SEC INR (0.9-1.1) Potassium 5.4 H (3.3-5.1) mmol/L BUN 23 H (9-16) mg/dL Creatinine 1.66 H (0.5-1.4) mg/dL Random Glucose 133 H (60-115) mg/dL Lactic Acid 2.1 H* (0.5-2.0) mmol/L Total Bilirubin 2.7 H (0.0-1.0) mg/dL Direct Bilirubin 1.2 H (0.0-0.5) mg/dL Alkaline Phosphatase 125 H (39-117) U/L Ammonia (13-55) umol/L Albumin 3.4 L (3.5-5.0) g/dL Lipase 111 H (8-78) U/L 12/28/21 12/28/21 Range/Units 09:33 11:13 RBC (4.60-5.80) X10*6/uL Hgb (14.0-18.0) g/dl Hct (42.0-52.0) % MCV (80.0-98.0) fL MCH (27.0-33.0) pg RDW (11.0-16.0) % Plt Count (160-400) X10*3/uL Immature Gran % (Auto) (0.0-0.4) % Lymph % (Auto) (20-40) % [place] % (Auto) (2-11) % Lymph # (Auto) (1.2-4.9) X10*3/uL [place] # (Auto) (0.1-1.2) X10*3/uL Abs Immat Gran (auto) (0.00-0.03) X10*3/uL PT 19.5 H (10.0-13.1) SEC INR 1.7 H (0.9-1.1) Potassium (3.3-5.1) mmol/L BUN (9-16) mg/dL Creatinine (0.5-1.4) mg/dL Random Glucose (60-115) mg/dL Lactic Acid (0.5-2.0) mmol/L Total Bilirubin (0.0-1.0) mg/dL Direct Bilirubin (0.0-0.5) mg/dL Alkaline Phosphatase (39-117) U/L Ammonia 74 H (13-55) umol/L Albumin (3.5-5.0) g/dL Lipase (8-78) U/L Short CBC 12/28/21 Range/Units 09:33 WBC 7.1 (4.8-10.8) X10*3/uL Hgb 9.0 L (14.0-18.0) g/dl Hct 28.7 L (42.0-52.0) % Plt Count 113 L (160-400) X10*3/uL BMP 12/28/21 09:33 Sodium 137 Potassium 5.4 H Chloride 104 Carbon Dioxide 22 BUN 23 H Creatinine 1.66 H Calcium 9.2 Liver Function 12/28/21 Range/Units 09:33 Total Bilirubin 2.7 H (0.0-1.0) mg/dL Direct Bilirubin 1.2 H (0.0-0.5) mg/dL AST 26 (5-37) U/L ALT 18 (0-40) U/L Alkaline Phosphatase 125 H (39-117) U/L Albumin 3.4 L (3.5-5.0) g/dL All other labs normal. Imaging Abdomen CT scan report/results: report reviewed and image reviewed CT scan - pelvis: report reviewed and image reviewed Additional studies: Umbilical hernia possibly containing small bowel is noted. Assessment and Plan (1) Incarcerated umbilical hernia: Status: Acute (2) Diabetes type 2, controlled: Status: Acute (3) Cirrhosis of liver: Status: Acute (4) Ascites: Status: Acute Plan The patient is being admitted to the hospitalist service with aggressive correction of the cirrhosis related coagulopathy and medical management of his comorbidities. Per ER, they are working on a possible transfer to [facility] since the patient has been getting his care there, however, I remain available if the patient requires emergent surgery after he was medically stabilized. The possible need for a bowel resection and the inherent risks to surgery in a high risk, cirrhotic patient including bleeding, infection, hernia recurrence, hepatic decompensation and was all discussed with the patient and apparently understood. The option of transfer was discussed with the patient but beds/ambulance is are reportedly not available according to the emergency room physician. Given this, the patient would like to proceed with surgery in spite of its risk. The possible need for nasogastric tube was discussed in addition to [place] and ICU stay. The inherent risks of blood transfusions including Infectious Disease and transfusion reactions were reviewed with the patient and apparently understood. He notes that he would like to proceed aggressively unless there is no hope of recovery. Procedures Date of Service Date of Service: 12/28/21
[2021-12-28] MEDS: Morphine Sulfate 4 MG/ML CARTRIDGE IVPUSH ×2 (15:40→19:18)
--- NOTE | 2021-12-28 16:20 | PM.IMHP ---
History of Present Illness Date of Service: 12/28/21 Attending physician on admission: Cl Yin Chief Complaint: Abdominal pain 66-year-old gentleman with past medical history significant for hepatitis-C, liver cirrhosis biopsy-proven hepatocellular carcinoma diagnosed in December of 2017, status post laparoscopic resection of liver,TACE , her radiation therapy with invasion of portal vein received treatment at [facility] but since tumor was not responsive to therapy, patient is being managed locally by Dr. Thacker with paracentesis and iron infusion therapy, patient went to GI office today for abdominal pain localized to umbilical area 10 day duration without associated fever chills, no nausea no vomiting, no diarrhea, no similar episodes in the past, patient was noted to have swollen umbilical hernia With redness and discomfort therefore he was referred to emergency room by Gastroenterology for surgical evaluation, in the ER CT abdomen was obtained that showed umbilical hernia containing fat and a supraumbilical midline hernia containing peritoneum, patient noted to have lactic acid of 2.2 ,stable WBC , creatinine of 1.6, INR of 1.7 patient seen by General surgery and plan is to proceed with surgery this afternoon. 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 Brother No problems noted. Brother No problems noted. Sister No problems noted. Son No problems noted. Son No problems noted. Son No problems noted. Other Substance abuse Surgical History History of esophagogastroduodenoscopy (EGD) (~2019) History of resection of liver History of surgery Hx of colonoscopy Social History Household Members: Significant Other Housing: Apartment Alcohol intake: former Patient Tobacco Use Status: Current everyday Tobacco user Tobacco use type: Cigarette Second Hand Smoke Exposure: Yes Advance Directives: Yes Advance Directives Information Provided: Yes Advance Directives on File: No Current occupational status: unemployed Cognitive needs: No Hearing needs: No Vision needs: Yes Meds Allergies Allergy/AdvReac Type Severity Reaction Status Date / Time No Known Allergies Allergy Verified 12/28/21 08:52 [No Known Allergies*] Active Medications: Current Medications Acetaminophen (Acetaminophen 325 Mg Tablet) 650 mg PO Q6H PRN PRN Reason: Pain, Mild (Pain Scale 1-3) Dextrose (Dextrose 50 % 25 Gm/50 Ml Syringe) 25 gm IVPUSH Q15M PRN; Protocol PRN Reason: per Hypoglycemia Standing Ord. Famotidine (Famotidine/Pf 20 Mg/2 Ml Vial) 20 mg IVPUSH DAILY KRISH Glucose (Glucose Gel 15 Gm Gel..Gram.) 15 gm PO Q15M PRN; Protocol PRN Reason: per Hypoglycemia Standing Ord. Hydromorphone HCl (Hydromorphone Hcl 0.5 Mg/0.5 Ml Syringe) 0.5 mg IVPUSH Q4H PRN; Protocol PRN Reason: Pain, Severe (Pain Scale 7-10) Dextrose/Sodium Chloride (D5ns) 1,000 mls @ 100 mls/hr IVCONT .Q10H KRISH Piperacillin Sod/Tazobactam (Sod 2.25 gm/ Sodium Chloride) 50 mls @ 100 mls/hr IV Q6H KRISH Insulin Human Lispro (Insulin Lispro 100 Unit/Ml 3 Ml Vial) 0 unit SUBCUT Q6H [facility]; Protocol Melatonin (Melatonin 3 Mg Tablet) 6 mg PO BEDTIME PRN PRN Reason: Insomnia Ondansetron HCl (Ondansetron Hcl 4 Mg/2 Ml Vial) 4 mg IVPUSH Q8H PRN PRN Reason: Nausea and Vomiting Sodium Chloride (0.9 % Sodium Chloride Flush 3 Ml Syringe) 3 ml IVFLUSH QSHIFT [facility] Home Medications Medication Instructions Recorded Confirmed Last Taken Type cholecalciferol (vitamin D3) 50 50 mcg PO DAILY 03/03/20 12/28/21 Unknown History mcg (2,000 unit) capsule aspirin 81 mg tablet 81 mg PO DAILY 03/25/20 12/28/21 Unknown History furosemide 20 mg tablet (Lasix) 40 mg PO BID 08/04/21 12/28/21 Unknown History iron,carbonyl 65 mg-vitamin C 125 1 tab PO DAILY 08/04/21 12/28/21 Unknown History mg tablet,delayed release (Vitron-C) nadolol 20 mg tablet 30 mg PO QPM 08/04/21 12/28/21 Unknown History spironolactone 50 mg tablet 100 mg PO BID 08/04/21 12/28/21 Unknown History pantoprazole 40 mg tablet,delayed 40 mg PO BID 12/04/21 12/28/21 Unknown History release potassium chloride 20 mEq 20 meq PO DAILY 12/04/21 12/28/21 Unknown History tablet,extended release(part/cryst) (Klor-Con M) sucralfate 1 gram tablet 1 g PO QID 12/04/21 12/28/21 Unknown History amoxicillin 500 mg capsule 1 cap PO Q8H 12/07/21 12/28/21 Unknown History Physical Exam Vital Signs and Narrative: Vital Signs: Last Vital Signs Temp 97.7 F 12/28/21 11:29 Pulse 64 12/28/21 11:29 Resp 14 12/28/21 11:29 BP 100/55 L 12/28/21 11:29 Pulse Ox 100 12/28/21 11:29 O2 Del Method 12/28/21 11:29 BMI result Body Mass Index 30.9 Const: Other: General awake alert x3, no acute distress. Anicteric sclera Neck supple no JVD. CVS regular rate rhythm, Respiratory lungs clear to auscultation, no respiratory distress, no wheeze, no rhonchi. Gastrointestinal abdomen soft, distended, bowel sounds audible, no guarding , no rigidity, umbilical hernia, dusky color mild purulent drainage from the margin, tender to touch. Extremities no edema. Neuro nonfocal Skin no rash Psych appropriate affect Results Labs CBC and Chem 7: 12/28/21 09:33 12/28/21 09:33 Labs: Laboratory Results - last 24 hr 12/28/21 12/28/21 12/28/21 09:33 09:33 09:33 MCV 74.7 L MCH 23.4 L MCHC 31.4 RDW 24.7 H Plt Count 113 L MPV Not Reportable Immature Gran % (Auto) 0.7 H Neut % (Auto) 68.2 Lymph % (Auto) 9.4 L [place] % (Auto) 18.5 H Eos % (Auto) 2.2 Baso % (Auto) 1.0 Lymph # (Auto) 0.7 L [place] # (Auto) 1.3 H Eos # (Auto) 0.2 Baso # (Auto) 0.1 Abs Immat Gran (auto) 0.05 H Absolute Neuts (auto) 4.9 Absolute Nucleated RBC 0.000 Nucleated RBC % (auto) 0.0 PT INR APTT Anion Gap 16 Estim Creat Clear Calc 41.6 Estimated GFR 42 Random Glucose 133 H Lactic Acid 2.1 H* Lactic Acid F/U @ 2Hr Calcium 9.2 Total Bilirubin 2.7 H Direct Bilirubin 1.2 H AST 26 ALT 18 Alkaline Phosphatase 125 H Ammonia Total Protein 7.1 Albumin 3.4 L Lipase 111 H 12/28/21 12/28/21 12/28/21 09:33 11:13 12:05 MCV MCH MCHC RDW Plt Count MPV Immature Gran % (Auto) Neut % (Auto) Lymph % (Auto) [place] % (Auto) Eos % (Auto) Baso % (Auto) Lymph # (Auto) [place] # (Auto) Eos # (Auto) Baso # (Auto) Abs Immat Gran (auto) Absolute Neuts (auto) Absolute Nucleated RBC Nucleated RBC % (auto) PT 19.5 H INR 1.7 H APTT 29.7 Anion Gap Estim Creat Clear Calc Estimated GFR Random Glucose Lactic Acid Lactic Acid F/U @ 2Hr 1.5 Calcium Total Bilirubin Direct Bilirubin AST ALT Alkaline Phosphatase Ammonia 74 H Total Protein Albumin Lipase Imaging Radiologist's Impressions: Impressions Abdomen/Pelvis CT 12/28/21 12:05 IMPRESSION: postsurgical changes following medial segment left hepatic lobe lesion resection. The liver is attenuated and lobulated contour suggestive cirrhosis. Diffuse ascites. There is umbilical hernia containing fat and fluid and a supraumbilical midline hernia containing peritoneal. Cholelithiasis without wall thickening. Fleischner guidelines were followed. Assessment and Plan (1) Incarcerated umbilical hernia: Status: Acute (2) Abdominal pain: Status: Acute (3) Cirrhosis of liver: Status: Acute Plan 66-year-old gentleman with end-stage liver disease/history of hepatocellular carcinoma not responsive to treatment receiving paracentesis an structural manager for comfort presented to [facility] with symptoms of abdominal pain and diagnosed to have incarcerated umbilical hernia. ?Incarcerated umbilical hernia With history of end-stage liver disease, with background of decompensated cirrhosis, coagulopathy with INR 1.7 Patient seen by general surgeon Dr. Dailey discussed case with him he is planning to proceed with surgery this evening Patient received 10 mg of vitamin K, IV Zosyn, IV vancomycin and IV morphine in the emergency room, 2 units of FFP ordered Will give IV Pepcid for GI prophylaxis Continue IV Zosyn/NPO/IV fluids Follow CBC, electrolytes, LFTs and INR High risk for surgery question need for ICU care after surgery History of hepatocellular carcinoma with invasion of portal vein/hep C/cirrhosis Status post treatment at [facility] tumor not responsive to therapy therefore being managed conservatively with paracentesis / iron infusion Hold Lasix and Aldactone Follow BP and clinical course closely and resume nadolol if BP allows Elevated ammonia level with no evidence of encephalopathy, will place on lactulose Acute on chronic kidney disease stage 3 Hold diuretics continue IV fluids follow labs Mild hyperkalemia hold spironolactone, follow labs Diabetes mellitus patient is NPO hold Januvia placed on insulin sliding scale DVT prophylaxis with compression boots due to coagulopathy Code status DNR DNI Patient need two inpatient night stay due to incarcerated umbilical hernia undergoing surgery will need postoperative care since high risk for surgery with history of decompensated cirrhosis ? Quality Stroke Does the patient have a stroke diagnosis?: No VTE Prior VTE?: No VTE Risk Level:: Medical - moderate - high VTE Device Contraindication: N/A - Device Ordered VTE Drug Contraindication: Treatment Not Indicated
--- NOTE | 2021-12-28 17:58 | PHA.MEDREC ---
Pharmacy Consult ? Medication Reconciliation Pharmacy has completed the medication reconciliation. Patient was a poor historian but had pictures of his medications on his phone. However, Sucralfate was not one of his medications in the pictures. When asked, patient said he is not sure if he is still taking it, he says nothing has changed since his last visit but cant recall why is isn't included in the pictures. Caution to provider when continuing meds.
[2021-12-28 19:18] VITALS: RESP 16
[2021-12-28] MEDS: Famotidine/PF 20 MG/2 ML VIAL IVPUSH (19:19)
[2021-12-28 19:32] LABS: Glucose, Whole Blood 116 mg/dL (60-115)
[2021-12-28 19:51] LABS: COVID-19 Test Negative (Negative)
[2021-12-28] MEDS: vancomycin HCL 1,250 MG in 0.9 % Sodium Chloride 250 ML 166.67 MG IV (19:53)
[2021-12-28] MEDS: Dextrose 5 % and 0.9 % NaCl 1,000 ML 100 ML IVCONT (19:59)
--- NOTE | 2021-12-28 20:02 | PC.NURSE ---
BRODIE from the OR called and booked [facility] for transport of this patient
--- NOTE | 2021-12-28 20:05 | PC.NURSE ---
call from [facility] @[facility] will be here to transport patient to [facility] ER @2019 NURSE TO NURSE [phone]
--- NOTE | 2021-12-29 09:32 | MHC.CM.PN ---
pt unseen by cm ,pt being transferred to [facility]
== END 2021-12-28 21:40 | disposition short-term general hospital (02) | DRG 394 ==
LOC: HO.ED 14:30 → HO.EDOVER 16:31
PROVIDERS: Physician Assistant; Admitting Provider Hospitalist; Emergency Provider Emergency Medicine; PCP Internal Medicine; Visit Provider Hospitalist
DX: K42.0 Umbilical hernia with obstruction, without gangrene (principal); C22.0 Liver cell carcinoma; N17.9 Acute kidney failure, unspecified; Z66 Do not resuscitate; E78.5 Hyperlipidemia, unspecified; N40.0 Benign prostatic hyperplasia without lower urinary tract symptoms; K74.60 Unspecified cirrhosis of liver; F17.210 Nicotine dependence, cigarettes, uncomplicated; E87.5 Hyperkalemia; N18.30 Chronic kidney disease, stage 3 unspecified; E11.9 Type 2 diabetes mellitus without complications; Z20.822 Contact with and (suspected) exposure to COVID-19; Z71.6 Tobacco abuse counseling; Z86.19 Personal history of other infectious and parasitic diseases; Z86.16 Personal history of COVID-19; Z79.82 Long term (current) use of aspirin; Z79.899 Other long term (current) drug therapy
CPT/HCPCS: 36415; 74176; 80048; 80076; 82140; 82947; 83605; 83690; 85025; 85610; 85730; 86850; 86900; 86901; 86927; 87040; 87635; 96365; 96367; 96375; 99212; 99285; J2270; J2543; J3370; J3430

== ENCOUNTER 2022-01-08 08:19 | Day surgery (SDC) | payer MEDICARE, MEDICAID, SELFPAY ==
--- NOTE | ~2022-01-08 | US_ITS ---
PROCEDURE: ULTRASOUND-GUIDED PARACENTESIS CLINICAL INFORMATION: Ascites. COMPARISON: Previous exam 12/18/2021. TECHNIQUE: Procedure and risks and benefits including bleeding, infection and low blood pressure were discussed with the patient and informed consent was obtained. The left lower quadrant was prepped and draped in the usual sterile fashion. The skin and soft tissues were anesthetized with 1% lidocaine plain. Using ultrasound guidance and a 5 [place] Rapid Centesis catheter, access to the ascitic fluid was obtained. 4.6 L of clear yellow fluid was removed. No specimen was sent. Patient received albumin 25 g intravenously during the procedure. FINDINGS: There is a large amount of ascites. US/US paracentesis abd w/image IMPRESSION: Ultrasound-guided paracentesis.
[2022-01-08 06:55] VITALS: BMI 31.4
[2022-01-08 08:20] VITALS: BP 103/67; PULSE 67; RESP 18; TEMP 36.3; O2SAT 97
[2022-01-08 08:33] LABS: Glucose, Whole Blood 106 mg/dL (60-115)
--- NOTE | 2022-01-08 10:07 | HO.RADPN ---
RADIOLOGY Narrative Narrative: LLQ paracentesis. L seroanguinous fluid removed. No specimen sent.
[2022-01-08 10:15] VITALS: BP 91/38; PULSE 59; RESP 15; TEMP 36.6; O2SAT 100
[2022-01-08] MEDS: Lidocaine HCl 1 % MPF 5 ML VIAL 4 ML SUBCUT (10:18)
[2022-01-08 10:30] VITALS: BP 102/37; PULSE 58; RESP 16; O2SAT 100
[2022-01-08 10:45] VITALS: BP 93/35; PULSE 56; RESP 16; O2SAT 100
[2022-01-08 10:59] VITALS: BP 109/42; PULSE 59; RESP 16; O2SAT 100
[2022-01-08 11:14] VITALS: BP 104/49; PULSE 54; RESP 20; TEMP 36.4; O2SAT 100
== END 2022-01-08 11:25 | disposition home or self-care (01) ==
PROVIDERS: Radiology Diagnostic Radiology; PCP Internal Medicine; Visit Provider Internal Medicine Gastroenterology
DX: R18.8 Other ascites (principal); K74.60 Unspecified cirrhosis of liver; C22.0 Liver cell carcinoma; K42.0 Umbilical hernia with obstruction, without gangrene; I10 Essential (primary) hypertension; Z86.19 Personal history of other infectious and parasitic diseases
CPT/HCPCS: 49083; 82947; P9047

== ENCOUNTER 2022-01-20 11:13 | Day surgery (SDC) | payer MEDICARE, MEDICAID, SELFPAY ==
--- NOTE | ~2022-01-20 | US_ITS ---
EXAMINATION: ULTRASOUND-GUIDED PARACENTESIS CLINICAL INFORMATION: Ascites COMPARISON: Previous exam most recent 01/08/2022 TECHNIQUE: Procedure and risks and benefits including bleeding, infection and low blood pressure were discussed with the patient and informed consent was obtained. The left lower quadrant and sterile fashion. The skin and soft tissues were anesthetized with 1% lidocaine plain. Using ultrasound guidance and a 5 [place] rapid catheter, access to the ascitic fluid was obtained. 7.2 L of clear yellow fluid was removed. No specimen was sent. FINDINGS: There is a large amount of ascites. US/US paracentesis abd w/image IMPRESSION: Ultrasound-guided paracentesis.
[2022-01-20 10:53] VITALS: BMI 31.4
[2022-01-20 11:49] VITALS: BP 110/70; PULSE 64; RESP 18; TEMP 36.1; O2SAT 96
[2022-01-20 11:51] LABS: Glucose, Whole Blood 95 mg/dL (60-115)
--- NOTE | 2022-01-20 14:08 | HO.RADPN ---
RADIOLOGY Narrative Narrative: LLQ paracentesis. 7 L clear yellow fluid removed. No specimen sent.
[2022-01-20] MEDS: Lidocaine HCl 1 % MPF 5 ML VIAL SUBCUT (14:33)
[2022-01-20 14:40] VITALS: BP 104/56; PULSE 59; RESP 17; TEMP 36.6; O2SAT 98
== END 2022-01-20 15:51 | disposition home or self-care (01) ==
PROVIDERS: Visit Provider Radiology Diagnostic Radiology
DX: R18.8 Other ascites (principal); K74.60 Unspecified cirrhosis of liver; C22.0 Liver cell carcinoma; K42.0 Umbilical hernia with obstruction, without gangrene; F17.210 Nicotine dependence, cigarettes, uncomplicated; Z79.82 Long term (current) use of aspirin; Z79.899 Other long term (current) drug therapy
CPT/HCPCS: 49083; 82947

== ENCOUNTER 2022-01-27 10:55 | Outpatient (REF) | payer MEDICARE, MEDICAID, SELFPAY | END 2022-01-27 10:56 | disposition home or self-care (01) | LOC: HO.US 10:55 | PROVIDERS: Visit Provider Internal Medicine | DX: D50.9 Iron deficiency anemia, unspecified (principal) | CPT/HCPCS: 96365 ==

== ENCOUNTER → 2022-02-01 11:54 | Outpatient (BNVA) | payer MEDICARE, MEDICAID, SELFPAY | PROVIDERS: PCP Internal Medicine; Visit Provider Internal Medicine Gastroenterology | DX: K74.60 Unspecified cirrhosis of liver (principal); K42.9 Umbilical hernia without obstruction or gangrene | CPT/HCPCS: 99212 ==

== ENCOUNTER 2022-02-02 11:22 | Day surgery (SDC) | payer MEDICARE, MEDICAID, SELFPAY ==
[2022-02-02] VITALS (11 sets, daily range): BP systolic 84–109; BP diastolic 43–70; PULSE 64–71; RESP 16–24; TEMP 36.1–36.6; O2SAT 97–100; BMI 31.8
--- NOTE | ~2022-02-02 | US_ITS ---
EXAMINATION: ULTRASOUND-GUIDED PARACENTESIS CLINICAL INFORMATION: Ascites COMPARISON: Previous exams most recent 01/20/2022 TECHNIQUE: Procedure and risks and benefits including bleeding, infection and low blood pressure were discussed with the patient and informed consent was obtained. The left lower quadrant was prepped and draped in the usual sterile fashion. The skin and soft tissues were anesthetized with 1% lidocaine plain. Using ultrasound guidance and a 5 [place] rapid centesis catheter, access to the ascitic fluid was obtained. 11.5 L of clear yellow fluid was removed. No diagnostic specimen was sent. Patient received 3 bottles of intravenous albumin. FINDINGS: There is a large amount of ascites. US/US paracentesis abd w/image IMPRESSION: Ultrasound-guided paracentesis.
[2022-02-02 11:39] LABS: Glucose, Whole Blood 125 mg/dL (60-115)
[2022-02-02 11:51] LABS: MANUAL DIFF FLAG NO
[2022-02-02 12:02] LABS: Basophils Absolute Auto 0.1 X10*3/uL (0.0-0.2); Basophils Percent Auto 1.5 % (0-2); Eosinophils Absolute Auto 0.7 X10*3/uL (0.0-0.4); Eosinophils Percent Auto 10.9 % (0-4); Hematocrit 28.8 % (42.0-52.0); Hemoglobin 9.3 g/dl (14.0-18.0); Imm Gran Abs Auto 0.06 X10*3/uL (0.00-0.03); Imm Gran Pct Auto 0.9 % (0.0-0.4); Lymphocytes Absolute Auto 0.7 X10*3/uL (1.2-4.9); Lymphocytes Percent Auto 11.4 % (20-40); Mean Corpuscular HGB Conc 32.3 g/dl (31.0-36.0); Mean Corpuscular Hemoglobin 26.4 pg (27.0-33.0); Mean Corpuscular Volume 81.8 fL (80.0-98.0); Mean Platelet Volume 10.8 fL (9.4-12.4); Monocytes Absolute Auto 1.2 X10*3/uL (0.1-1.2); Monocytes Percent Auto 18.1 % (2-11); Neutrophils Absolute Auto 3.7 x10*3/uL (2.0-8.3); Neutrophils Percent Auto 57.2 % (45-73); Platelet Count 114 X10*3/uL (160-400); Red Blood Count 3.52 X10*6/uL (4.60-5.80); Red Cell Distribution Width 23.1 % (11.0-16.0); White Blood Count 6.5 X10*3/uL (4.8-10.8)
[2022-02-02 12:06] LABS: INTERNATIONAL NORM RATIO 1.7 (0.9-1.1); Prothrombin Time 19.4 SEC (10.0-13.1)
[2022-02-02 12:09] LABS: Partial Thromboplastin Time 29.9 SEC (26.0-36.4)
[2022-02-02 12:10] LABS: Anion Gap 14 (12-20); Carbon Dioxide 20 mmol/L (22-29); Chloride 106 mmol/L (96-108); Potassium 4.5 mmol/L (3.3-5.1); Sodium 135 mmol/L (135-145)
--- NOTE | 2022-02-02 13:39 | HO.RADPN ---
RADIOLOGY Narrative Narrative: LLQ paracenetesis using 5 fr catheter. L clear fluid removed. No specimen sent. Albumin given.
[2022-02-02] MEDS: Lidocaine HCl 1 % 20 ML VIAL 4 ML SUBCUT (14:11)
--- NOTE | 2022-02-02 14:58 | HO.RADPN ---
RADIOLOGY Narrative Narrative: LLQ paracentesis using 5 fr catheter. 11.5 L clear yellow fluid removed. patient received 3 bottles of albumin.
[2022-02-02] MEDS: Albumin Human 25 % 100 ML IV (15:51)
[2022-02-02] MEDS: 0.9 % Sodium Chloride 500 ML 999 ML IV (17:02)
== END 2022-02-02 17:47 | disposition home or self-care (01) ==
PROVIDERS: Radiology Diagnostic Radiology; Visit Provider Internal Medicine Gastroenterology
DX: R18.8 Other ascites (principal); K74.60 Unspecified cirrhosis of liver; C22.0 Liver cell carcinoma; F17.210 Nicotine dependence, cigarettes, uncomplicated; Z79.82 Long term (current) use of aspirin; Z79.899 Other long term (current) drug therapy
CPT/HCPCS: 36415; 49083; 80051; 82947; 85025; 85610; 85730; P9047

== ENCOUNTER 2022-02-03 13:46 | Outpatient (REF) | payer MEDICARE, MEDICAID, SELFPAY | END 2022-02-03 13:47 | disposition home or self-care (01) | LOC: HO.MDS 13:46 | PROVIDERS: Visit Provider Internal Medicine | DX: D50.9 Iron deficiency anemia, unspecified (principal) | CPT/HCPCS: 96365; J1756 ==

== ENCOUNTER 2022-02-12 07:36 | Day surgery (SDC) | payer MEDICARE, MEDICAID, SELFPAY ==
[2022-02-12] VITALS (7 sets, daily range): BP systolic 86–103; BP diastolic 37–61; PULSE 68–84; RESP 13–17; TEMP 36.8; O2SAT 97–99
--- NOTE | ~2022-02-12 | US_ITS ---
EXAMINATION: ULTRASOUND-GUIDED PARACENTESIS CLINICAL INFORMATION: Ascites COMPARISON: Previous exam most recent 02/02/2022 TECHNIQUE: Procedure and risks and benefits including bleeding, infection and low blood pressure were discussed with the patient and informed consent was obtained. The left lower quadrant was prepped and draped in the usual sterile fashion. The skin and soft tissues were anesthetized with 1% lidocaine plain. Using ultrasound guidance and a 5 [place] rapid centesis catheter, access to the ascitic fluid was obtained. 11.6 L of clear yellow fluid was removed. No specimen was sent. Patient received 3 bottles of 25 g of albumin during the procedure. FINDINGS: There is a large amount of ascites. US/US paracentesis abd w/image IMPRESSION: Ultrasound-guided paracentesis.
[2022-02-12] MEDS: Albumin Human 25 % 100 ML IV ×2 (09:30→10:30)
--- NOTE | 2022-02-12 09:33 | HO.RADPN ---
RADIOLOGY Narrative Narrative: LLQ paracentesis using 5 fr catheter. Large volume clear yellow fluid removed. Albumin given. No specimen sent.
[2022-02-12] MEDS: Lidocaine HCl 1 % MPF 5 ML VIAL SUBCUT (10:51)
== END 2022-02-12 12:47 | disposition home or self-care (01) ==
PROVIDERS: Radiology Diagnostic Radiology; Visit Provider Internal Medicine Gastroenterology
DX: R18.8 Other ascites (principal); K74.60 Unspecified cirrhosis of liver; C22.0 Liver cell carcinoma; I10 Essential (primary) hypertension; Z86.19 Personal history of other infectious and parasitic diseases; F17.210 Nicotine dependence, cigarettes, uncomplicated
CPT/HCPCS: 49083; P9047

== ENCOUNTER → 2022-02-19 07:00 | Day surgery (SDC) | payer MEDICARE, MEDICAID, SELFPAY ==
--- NOTE | ~2022-02-19 | US_ITS ---
EXAMINATION: ULTRASOUND GUIDED PARACENTESIS CLINICAL INFORMATION: Ascites and cirrhosis. COMPARISON: None. TECHNIQUE: Following explaining ultrasound-guided paracentesis procedure, benefits and risk, a written consent was obtained. Patient was placed supine and preliminary ultrasound imaging was obtained. An optimal site was selected and marked on the skin. The site marked was cleaned and draped in usual sterile manner. 1% lidocaine was injected at the puncture site. Through a small skin incision a 4 [place] Yueh catheter was advanced into the peritoneal space. After observing fluid return, the stylet was withdrawn and catheter connected to a vacuum bottle. After removing all fluid and observing normal fluid remaining, catheter was withdrawn and complete hemostasis was achieved. Sterile dressing was applied postprocedure at the puncture site. Patient tolerated procedure extremely well. FINDINGS: On preliminary ultrasound imaging there is a large amount of free fluid. Approximately 9.1 L of clear yellowish fluid was removed for therapeutic purposes. No immediate complications seen. US/US paracentesis abd w/image IMPRESSION: Successful therapeutic paracentesis performed.
--- NOTE | 2022-02-19 07:40 | PC.NURSE ---
Patient arrived to [facility] complaining of an open sore on his stomach. Per patient, he noticed it last week sometime, I'm not sure . Denies any pain. Site assessed, epigastric region loosely covered with bandages. Open area underneath, approximately quarter sized with sanguineous drainage. Area around wound, red and warm. Patient denies pain. All VS WNL. Gina MARKS from radiology, Dr. Avitia and Dr. Hansen notified. Picture sent via [facility] text as requested by Dr Hansen. Per Dr. Hansen, patient to be sent to the ER but to be evaluated by Radiologist as to whether or not planned paracentesis should be done prior to ED vist. Dr. Avitia and Gina RN at bedside. Per Dr. Avitia, paracentesis should be done prior to ED to reduce abdominal pressure . Dr. Hansen in agreement. Per Angi, patient to go straight to ED from Radiology, no PACU recovery necessary. Gina MARKS aware. Patient aware of plan. This nurse spoke to charge nurse in the ED Elissa Julian to relay plan of patient going to ED from radiology. Dr. Hansen to reach out to ED doctor for report.
[2022-02-19 07:52] VITALS: BMI 29.1
[2022-02-19 08:06] LABS: Glucose, Whole Blood 172 mg/dL (60-115)
[2022-02-19] MEDS: Lidocaine HCl 1 % MPF 5 ML VIAL 10 ML SUBCUT (09:40)
== END ==
PROVIDERS: Visit Provider Radiology Diagnostic Radiology
DX: R18.8 Other ascites (principal); K74.60 Unspecified cirrhosis of liver; C22.0 Liver cell carcinoma
CPT/HCPCS: 49083; 82947; P9047

== ENCOUNTER 2022-02-19 12:20 | Emergency (ER) | payer MEDICARE, MEDICAID, SELFPAY ==
--- NOTE | ~2022-02-19 | CT_ITS ---
EXAMINATION: CT ABDOMEN AND PELVIS WITH CONTRAST CLINICAL INFORMATION: Question of abdominal wall abscess. COMPARISON: CT scan of the abdomen and pelvis dated 12/28/2021. TECHNIQUE: Multidetector volumetric images were obtained from the superior aspect of the liver through the pubic symphysis following administration 85 mL of Omnipaque 350 intravenous contrast. Sagittal and coronal reformatted images were obtained on the technologist's workstation. Oral contrast: No This CT examination was performed using dose optimization techniques as appropriate, variously including the following: *Automated exposure control *Adjustment of mA and/or kV according to patient size (this includes techniques or standardized protocols for targeted exams where dose is matched to indication/reason for exam; i.e. extremities or head) *Use of iterative reconstruction technique DLP: 548 mGy-cm FINDINGS: LUNG BASES: The visualized lung bases are unremarkable. LIVER, GALLBLADDER, AND BILIARY TREE: Cirrhosis. Postsurgical changes in segment 4A without significant change. Mild biliary ductal dilatation. Gallbladder is decompressed containing calcified gallstones measuring up to 2.1 cm (image 27, series 3). Mild peritoneal ascites. PANCREAS: Unremarkable. SPLEEN: 17.8 cm (image 52, series 5). ADRENAL GLANDS: Unremarkable. KIDNEYS AND URETERS: Left upper pole renal cyst measures 2.3 cm. Tiny low-attenuation foci too small likely characterize. 0.3 cm left lower pole intrarenal calculus. No significant right renal abnormality. No hydroureteronephrosis bilaterally. BLADDER: Unremarkable. GASTROINTESTINAL TRACT: The stomach and small bowel unremarkable. The appendix is not identified. The colon shows mild diverticulosis distally without surrounding abnormality. The rectum is unremarkable. ABDOMINAL WALL: Postsurgical changes without defined focal collection or recurrent hernia. LYMPH NODES: No lymphadenopathy. VASCULAR: Unremarkable. PELVIC VISCERA: Mild prostatomegaly. OSSEOUS STRUCTURES: Unremarkable. CT/CT abdomen pelvis w IV con IMPRESSION: 1. Anterior abdominal wall post surgical changes without defined collection or recurrent hernia. 2. Hepatic cirrhosis with postsurgical changes without significant interval change. Mild peritoneal ascites represents interval decrease from the previous study. Splenomegaly without significant change. 3. Other incidental findings detailed above without significant change.
[2022-02-19 12:26] VITALS: BP 91/50; PULSE 60; RESP 18; TEMP 36.4; O2SAT 99
--- NOTE | 2022-02-19 12:48 | ED_ITS ---
HPI - Wound/Laceration General Chief Complaint: Wound/Laceration Stated Complaint: abd wound Time Seen by Provider: 02/19/22 12:28 Source: patient Mode of arrival: ambulatory Limitations: no limitations History of Present Illness HPI narrative: Patient is a 66-year-old male with a PMH of incarcerated umbilical hernia, ascites, cirrhosis of liver, type 2 diabetes, anemia, umbilical hernia, BPH, HTN, CVA, tertiary syphilis, dyslipidemia, history of hepatitis C, hepatocellular carcinoma, erectile dysfunction sent today from his GI Dr. Hansen for an abdominal wound/abscess. Patient presenting to the ED his with IV albumin running for his paracentesis. Patient states he was at the GI doctor's today to get a Therapeutic paracentesis, when the Nurse noticed the wound. the nurse called Dr. Hansen, then Dr. Hansen recommended to sent him for further evaluation treatment here in the emergency department. Patient reports that this wound developed about 1 week ago, he has been trying to express pus out of it with minimal affect, he has been cleaning with warm water and putting a bandage on this area. Patient endorses localized abdominal pain, though denies any other abdominal pain. The patient also denies fever, chills, nausea, vomiting, diarrhea, and rash. Of note patient is not on any blood thinners Past surgical hx: - Paracentesis: - Iron infusions - Umbilical and incisional hernia repair at [facility] in [place] on 12/29/2021. Onset (ago): week(s) (1) Location: abdomen (Epigastric) Context: other (Surgery, paracentesis) Associated symptoms: pain Treatments prior to arrival: bandage Related Data Home Medications Medication Instructions Recorded Confirmed cholecalciferol (vitamin D3) 50 50 mcg PO DAILY 03/03/20 02/03/22 mcg (2,000 unit) capsule aspirin 81 mg tablet 81 mg PO DAILY 03/25/20 02/03/22 furosemide 20 mg tablet (Lasix) 40 mg PO BID 08/04/21 02/03/22 nadolol 20 mg tablet 30 mg PO QPM 08/04/21 02/03/22 pantoprazole 40 mg tablet,delayed 40 mg PO BID 12/04/21 02/03/22 release potassium chloride 20 mEq 20 meq PO DAILY 02/01/22 02/03/22 tablet,extended release(part/cryst) (Klor-Con M) spironolactone 50 mg tablet 100 mg PO BID 02/01/22 02/03/22 Previous Rx's Medication Instructions Recorded Januvia 25 mg tablet (sitagliptin) 25 mg PO DAILY 30 days #30 tabs 11/10/21 cholestyramine (with sugar) 4 gram 4 g PO QIDACHS #348.6 grams 02/01/22 oral powder cephalexin 500 mg capsule 500 mg PO Q6H 10 days #40 caps 02/19/22 doxycycline monohydrate 100 mg 100 mg PO BID 10 days #20 tabs 02/19/22 tablet gentamicin 0.1 % topical ointment 1 appl topical TID #30 grams 02/19/22 Allergies Allergy/AdvReac Type Severity Reaction Status Date / Time No Known Allergies Allergy Verified 02/19/22 07:52 [No Known Allergies*] Review of Systems Review of Systems: Constitutional : No Fever, No Chills, Cardiovascular : No Chest Pain, No SOB Respiratory : No Dyspnea Gastrointestinal : + localized epigastric abdominal pain, No nausea, no vomiting, no diarrhea, no constipation Musculoskeletal : No Joint Swelling Skin : + skin abscess noted epigastric, No Foreign bodies, No rash, + surro unding erythema Neuro : No Weakness, No Numbness/tingling Yes all other systems are reviewed and are negative PMFSH Past Medical History Attestation statement: The following information was validated with the patient. Source: old records reviewed and nursing notes reviewed Medical History Acute respiratory disease due to COVID-19 virus Benign essential hypertension Benign prostate hyperplasia Cerebrovascular accident (CVA) Cirrhosis of liver without ascites Dyslipidemia Hepatocellular carcinoma History of hepatitis C 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 Obesity (BMI 30-39.9) Smoker Umbilical hernia Surgical History History of esophagogastroduodenoscopy (EGD) (~2019) History of hernia surgery History of resection of liver History of surgery Hx of colonoscopy Family History Family History Father Diabetes Mother Diabetes Alzheimer disease Chronic mental illness Brother No problems noted. Brother No problems noted. Brother No problems noted. Sister No problems noted. Son No problems noted. Son No problems noted. Son No problems noted. Other Substance abuse Social History Social History Household Members: Significant Other Housing: Apartment Alcohol intake: former Patient Tobacco Use Status: Current everyday Tobacco user Tobacco use type: Cigarette Second Hand Smoke Exposure: Yes Advance Directives: Yes Advance Directives Information Provided: Yes Advance Directives on File: No Current occupational status: unemployed Cognitive needs: No Hearing needs: No Vision needs: Yes Physical Exam Vital Signs: Vital Signs: Last Vital Signs Temp 98.2 F 02/19/22 15:26 Pulse 60 02/19/22 15:26 Resp 16 02/19/22 15:26 BP 90/47 L 02/19/22 15:26 Pulse Ox 100 02/19/22 15:26 O2 Del Method 02/19/22 15:26 BMI result Body Mass Index 30.0 vital signs have been reviewed and appeared to be correct. Blood pressure is hypotensive. Heart rate normal. Respiration rate normal. Temperature normal. Oxygen saturation normal. Appearance: Alert. Oriented X3. No acute distress. Head: Normal external exam. Normocephalic. Atraumatic. Eyes: PERRLA. EOMI. Conjunctiva and sclera normal. Eyelids normal. ENT: Moist mucous membranes. No lesions/ulcerations or masses noted on the tongue. Normal voice. No trismus noted. No drooling noted. No muffled voice noted. Neck: Normal inspection. Neck supple. FROM. No adenopathy. No meningeal signs. CVS: Normal heart rate and rhythm. Heart sound normal. Pulses normal throughout. No murmurs/rales/gallops. Respiratory: No respiratory distress. Painless inspiration. Breath sounds no rmal. No wheezes/rales/rhonchi noted. Chest nontender. No crepitus is noted. No accessory muscle usage noted or decreased air movement noted. No signs of trauma. Abdomen: Firm round non mobile mass/Abscess noted in the epigastric region with white pus noted. Otherwise abdomne is Soft and only TTP to the wound area otherwise no other point tenderness to the rest of the abdomen. Nondistended. No guarding. No rigidity. Bowel sounds normal in all 4 quadrants. No distention noted. No rebound tenderness. Negative Rovsing sign. Negative obturator's sign. Negative psoas sign. Negative Wilkins sign. Skin: Skin warm and dry. Normal skin color. Normal skin turgor. No rashes/lesions/lacerations noted. Extremities: No lower extremity edema. No calf tenderness is noted. Extremities exhibit normal range of motion and nontender. Neuro: Oriented X 3. No motor deficit. No sensory deficit. Normal steady gait. No focal neuro deficits noted. CN's II-XII intact bilaterally? Vascular: + 2 radial pulses Normal cap refill. No cyanosis noted to upper extremity nails and lower extremity toes nails. Course Course Course Narrative: 12:45pm -66-year-old male with a PMH significant for incarcerated umbilical hernia, ascites, type 2 diabetes, cirrhosis of the liver, anemia, hepatocellular ca rcinoma presenting today for a wound/abscess located in the epigastric region consistent with a port site for an arthroscopic procedure. Patient states that this wound/abscess developed about 1 week ago. Patient presented to [facility] for paracentesis and was placed on IV albumin; the therapeutic paracentesis was performed by Nurse and Then Nurse informed Dr. Hansen who instructed his Nurse to send patient here to ER. Patient denies any systemic signs of infection including fever, streaking, warmth of the local area. Dr. Enriquez was informed that his patient was in the ED. He reports that the nurse saw the patient this morning. And the patient was sent to the ED for a rule out of fasciitis and possible need for IV antibiotics and imaging. Physical exam significant for a non healing abscess in which no puss was expressed. -Patient was noted to be hypotensive at 91/50; though based on previous vitals patient's baseline is hypotensive around 100/50. qSOFA score of 1. Low suspicion for Sepsis the 0 patient will be given IV fluids, and lab work/ blood cultures will be performed. Plan: - CT scan of abdomen and pelvis - Lab work: CBC, CMP, LA, magnesium, PT/INR - Blood cultures - Antibiotics - IV fluids Reevaluation(s) Reevaluation #1: CBC - WBC (4.5); RBC (3.15); H&H (8.8/26.6); RDW (21.0); Platelet count (81); Lymph % (15.3) [place]% (20.0); Eos % (11.0); Eos # (0.5); Lymph # (0.7). All other lab values are within normal limits. - Patient has a history of iron deficiency anemia. - Coagulation: PT (21.3); INR (1.8) - These are chronically elevated likely due to liver cirrhosis. - Chem: Carbon dioxide (21); BUN (27); Creatinine (1.66); Total bili (2.2); Alk- phos (148); Total protein (6.1); POC glucose (172). All other lab values are within normal limits - These lab values are chronically elevated. Likely due to his liver cirrhosis - POC glucose is elevated likely due to his T2D - Lactic acid (1.2) - Level is <2; this rules out sepsis Time: 15:00 Reevaluation #2: - CT scan abdomen pelvis with IV contrast revealed postsurgical changes to the anterior abdominal wall without definite collection or recurrent hernia. Hepatic cirrhosis with postsurgical changes. Otherwise other chronic changes no acute processes. - Therefore patient now status post I&D of abscess. Patient tolerated pro cedure well. No complications. Wound culture was obtained. Will DC home with antibiotics and instructions to follow-up with wound clinic/ welt pocket machine operator/ PCP and direct service worker as patient reports he was not told that his kidney function was increasing since December. Patient and at bedside understand agree this plan. Time: 16:29 [facility] - Wound/Laceration Medical Records Attestation: I reviewed the patient's medical records. Lab Data Attestation: I reviewed the patient's lab results. Result diagrams: 02/19/22 13:20 02/19/22 13:20 Labs: Lab Results 02/19/22 02/19/22 02/19/22 Range/Units 13:20 13:20 13:20 WBC 4.5 L (4.8-10.8) X10*3/uL RBC 3.15 L (4.60-5.80) X10*6/uL Hgb 8.8 L (14.0-18.0) g/dl Hct 26.6 L (42.0-52.0) % MCV 84.4 (80.0-98.0) fL MCH 27.9 (27.0-33.0) pg MCHC 33.1 (31.0-36.0) g/dl RDW 21.0 H (11.0-16.0) % Plt Count 81 L D (160-400) X10*3/uL MPV 11.2 (9.4-12.4) fL Immature Gran % (Auto) 0.4 (0.0-0.4) % Neut % (Auto) 51.7 (45-73) % Lymph % (Auto) 15.3 L (20-40) % [place] % (Auto) 20.0 H (2-11) % Eos % (Auto) 11.0 H (0-4) % Baso % (Auto) 1.6 (0-2) % Lymph # (Auto) 0.7 L (1.2-4.9) X10*3/uL [place] # (Auto) 0.9 (0.1-1.2) X10*3/uL Eos # (Auto) 0.5 H (0.0-0.4) X10*3/uL Baso # (Auto) 0.1 (0.0-0.2) X10*3/uL Abs Immat Gran (auto) 0.02 (0.00-0.03) X10*3/uL Absolute Neuts (auto) 2.3 (2.0-8.3) x10*3/uL Absolute Nucleated RBC 0.000 (0.0-0.012) X10*3/uL Nucleated RBC % (auto) 0.0 (0.0-0.2) /100WBC PT 21.3 H (10.0-13.1) SEC INR 1.8 H (0.9-1.1) Sodium 138 (135-145) mmol/L Potassium 3.9 (3.3-5.1) mmol/L Chloride 106 (96-108) mmol/L Carbon Dioxide 21 L (22-29) mmol/L Anion Gap 15 (12-20) BUN 27 H (9-16) mg/dL Creatinine 1.66 H (0.5-1.4) mg/dL Estim Creat Clear Calc 41.0 Estimated GFR 42 Random Glucose 98 (60-115) mg/dL Lactic Acid (0.5-2.0) mmol/L Calcium 8.7 (8.4-10.2) mg/dL Magnesium 2.1 (1.6-2.6) mg/dL Total Bilirubin 2.2 H (0.0-1.0) mg/dL AST 27 (5-37) U/L ALT 15 (0-40) U/L Alkaline Phosphatase 148 H (39-117) U/L Total Protein 6.1 L (6.5-8.0) g/dL Albumin 3.7 (3.5-5.0) g/dL COVID-19 (KESHA) (Negative) COVID-19 Clin Com 02/19/22 02/19/22 Range/Units 13:20 14:32 WBC (4.8-10.8) X10*3/uL RBC (4.60-5.80) X10*6/uL Hgb (14.0-18.0) g/dl Hct (42.0-52.0) % MCV (80.0-98.0) fL MCH (27.0-33.0) pg MCHC (31.0-36.0) g/dl RDW (11.0-16.0) % Plt Count (160-400) X10*3/uL MPV (9.4-12.4) fL Immature Gran % (Auto) (0.0-0.4) % Neut % (Auto) (45-73) % Lymph % (Auto) (20-40) % [place] % (Auto) (2-11) % Eos % (Auto) (0-4) % Baso % (Auto) (0-2) % Lymph # (Auto) (1.2-4.9) X10*3/uL [place] # (Auto) (0.1-1.2) X10*3/uL Eos # (Auto) (0.0-0.4) X10*3/uL Baso # (Auto) (0.0-0.2) X10*3/uL Abs Immat Gran (auto) (0.00-0.03) X10*3/uL Absolute Neuts (auto) (2.0-8.3) x10*3/uL Absolute Nucleated RBC (0.0-0.012) X10*3/uL Nucleated RBC % (auto) (0.0-0.2) /100WBC PT (10.0-13.1) SEC INR (0.9-1.1) Sodium (135-145) mmol/L Potassium (3.3-5.1) mmol/L Chloride (96-108) mmol/L Carbon Dioxide (22-29) mmol/L Anion Gap (12-20) BUN (9-16) mg/dL Creatinine (0.5-1.4) mg/dL Estim Creat Clear Calc Estimated GFR Random Glucose (60-115) mg/dL Lactic Acid 1.2 (0.5-2.0) mmol/L Calcium (8.4-10.2) mg/dL Magnesium (1.6-2.6) mg/dL Total Bilirubin (0.0-1.0) mg/dL AST (5-37) U/L ALT (0-40) U/L Alkaline Phosphatase (39-117) U/L Total Protein (6.5-8.0) g/dL Albumin (3.5-5.0) g/dL COVID-19 (KESHA) Negative (Negative) COVID-19 Clin Com See Note Imaging Data CT scan abdomen pelvis with IV contrast: Attestation: I personally reviewed and interpreted this imaging study as follows: Radiologist's impression: FINDINGS: LUNG BASES: The visualized lung bases are unremarkable.? LIVER, GALLBLADDER, AND BILIARY TREE: Cirrhosis. Postsurgical changes in segment 4A without significant change. Mild biliary ductal dilatation. Gallbladder is decompressed containing calcified gallstones measuring up to 2.1 cm (image 27, series 3). Mild peritoneal ascites. PANCREAS: Unremarkable.? SPLEEN: 17.8 cm (image 52, series 5).? ADRENAL GLANDS: Unremarkable.? KIDNEYS AND URETERS: Left upper pole renal cyst measures 2.3 cm. Tiny low-attenuation foci too small likely characterize. 0.3 cm left lower pole intrarenal calculus. No significant right renal abnormality. No hydroureteronephrosis bilaterally. BLADDER: Unremarkable.? GASTROINTESTINAL TRACT: The stomach and small bowel unremarkable. The appendix is not identified. The colon shows mild diverticulosis distally without surrounding abnormality. The rectum is unremarkable.? ABDOMINAL WALL: Postsurgical changes without defined focal collection or recurrent hernia.? LYMPH NODES: No lymphadenopathy. VASCULAR: Unremarkable. PELVIC VISCERA: Mild prostatomegaly.? OSSEOUS STRUCTURES: Unremarkable.? CT/CT abdomen pelvis w IV con IMPRESSION: ? 1. Anterior abdominal wall post surgical changes without defined collection or recurrent hernia. 2. Hepatic cirrhosis with postsurgical changes without significant interval change. Mild peritoneal ascites represents interval decrease from the previous study. Splenomegaly without significant change. 3. Other incidental findings detailed above without significant change. Procedures Abscess I/D Site: abdomen Local Anesthetic: lidocaine 1% Amount of anesthesia used (mL): 4 Technique: needle aspiration and incised with blade Amount of fluid expressed (mL): 2 Sent for culture/gram staining?: Yes Irrigation: Yes Packing used?: none Complications: other ( no complications patient tolerated procedure well) Critical Care Time Critical Care Time Critical Care Time: Yes Total Critical Care Time: 60 Attestation: I personally attest to this time spent taking care of the patient Discharge Plan Discharge Clinical Impression: Abdominal wall abscess, Cellulitis, CKD (chronic kidney disease) Patient Disposition: Home, Self-Care Instructions: Chronic Kidney Disease (ED), Cellulitis (ED), Abscess Incision and Drainage (DC), Warm Compress or Soak (ED) Additional Instructions: Since December your kidney function has been elevating. It may be related to some medications you are on. You should increase her water intake. Please f ollow-up with the kidney doctor Dr. Wray call to make a follow-up appointment. Should also follow-up with the wound clinic. Also follow-up with your welt pocket machine operator your PCP. Return if any new or worsening symptoms especially if he develops any fevers, chills, nausea/ vomiting or worsening surrounding redness around the wound or streaking which is line following of vein. Prescriptions: New doxycycline monohydrate 100 mg tablet 100 mg PO BID 10 Days Qty: 20 0RF cephalexin 500 mg capsule 500 mg PO Q6H 10 Days Qty: 40 0RF gentamicin 0.1 % ointment 1 appl topical TID Qty: 30 1RF No Action Januvia 25 mg tablet 25 mg PO DAILY 30 Days Qty: 30 3RF nadolol 20 mg tablet 30 mg PO QPM furosemide [Lasix] 20 mg tablet 40 mg PO BID aspirin 81 mg tablet 81 mg PO DAILY cholecalciferol (vitamin D3) 50 mcg (2,000 unit) capsule 50 mcg PO DAILY pantoprazole 40 mg tablet,delayed release (DR/EC) 40 mg PO BID potassium chloride [Klor-Con M20] 20 mEq tablet,ER particles/crystals 20 meq PO DAILY spironolactone 50 mg tablet 100 mg PO BID cholestyramine (with sugar) 4 gram powder 4 g PO QIDACHS Qty: 348.6 1RF Rx Instructions: no meds 1 hr before/4-6 hr after dose Referrals: [facility] [Provider Group] (call to make f/u appointment ) Kimo Daly MD [Primary Care Provider] - (call to make f/u appointment ) Hadley Hansen MD [Physician] - (call to make f/u appointment ) Solo Wray MD [Physician] - (call to make f/u appointment )
[2022-02-19 13:31] LABS: Imm Gran Abs Auto 0.02 X10*3/uL (0.00-0.03); Imm Gran Pct Auto 0.4 % (0.0-0.4); SCAN SMEAR FLAG 1
[2022-02-19 13:33] LABS: Basophils Absolute Auto 0.1 X10*3/uL (0.0-0.2); Basophils Percent Auto 1.6 % (0-2); Eosinophils Absolute Auto 0.5 X10*3/uL (0.0-0.4); Hematocrit 26.6 % (42.0-52.0); Hemoglobin 8.8 g/dl (14.0-18.0); Lymphocytes Absolute Auto 0.7 X10*3/uL (1.2-4.9); Lymphocytes Percent Auto 15.3 % (20-40); Mean Corpuscular HGB Conc 33.1 g/dl (31.0-36.0); Mean Corpuscular Hemoglobin 27.9 pg (27.0-33.0); Mean Corpuscular Volume 84.4 fL (80.0-98.0); Mean Platelet Volume 11.2 fL (9.4-12.4); Monocytes Absolute Auto 0.9 X10*3/uL (0.1-1.2); Neutrophils Absolute Auto 2.3 x10*3/uL (2.0-8.3); Neutrophils Percent Auto 51.7 % (45-73); Red Blood Count 3.15 X10*6/uL (4.60-5.80); White Blood Count 4.5 X10*3/uL (4.8-10.8)
[2022-02-19 13:36] LABS: MANUAL DIFF FLAG NO; PLT ABN DIST 1; Platelet Count 81 X10*3/uL (160-400)
[2022-02-19 13:38] LABS: INTERNATIONAL NORM RATIO 1.8 (0.9-1.1); Prothrombin Time 21.3 SEC (10.0-13.1)
[2022-02-19 13:43] LABS: Lactic Acid 1.2 mmol/L (0.5-2.0)
[2022-02-19] MEDS: 0.9 % Sodium Chloride 1,000 ML 999 ML IVCONT (13:46)
[2022-02-19 13:49] LABS: Alanine Aminotransferase 15 U/L (0-40); Albumin Level 3.7 g/dL (3.5-5.0); Alkaline Phosphatase 148 U/L (39-117); Anion Gap 15 (12-20); Aspartate Amino Transferase 27 U/L (5-37); Bilirubin Total 2.2 mg/dL (0.0-1.0); Blood Urea Nitrogen 27 mg/dL (9-16); Calcium 8.7 mg/dL (8.4-10.2); Carbon Dioxide 21 mmol/L (22-29); Chloride 106 mmol/L (96-108); Estimated Glomerular Filt Rate 42; Glucose Random 98 mg/dL (60-115); Magnesium 2.1 mg/dL (1.6-2.6); Potassium 3.9 mmol/L (3.3-5.1); Sodium 138 mmol/L (135-145); Total Protein 6.1 g/dL (6.5-8.0)
[2022-02-19] MEDS: Piperacillin Sodium/Tazobactam 4.5 GM in 0.9 % Sodium Chloride 100 ML IV (13:53)
[2022-02-19] MEDS: iohexoL 350 MG/ML 100 ML INFUS..BTL IV (14:04)
[2022-02-19 14:54] LABS: COVID-19 Test Negative (Negative)
[2022-02-19 15:26] VITALS: BP 90/47; PULSE 60; RESP 16; TEMP 36.8; O2SAT 100
[2022-02-19] MEDS: Lidocaine 4 % Cream KIT 1 APPL TOPICAL (15:41)
== END 2022-02-19 16:54 | disposition home or self-care (01) ==
PROVIDERS: Physician Assistant Medical; Emergency Provider Student in an Organized Health Care Education/Training Program; PCP Internal Medicine
DX: L02.211 Cutaneous abscess of abdominal wall (principal); L03.311 Cellulitis of abdominal wall; R10.13 Epigastric pain; F17.210 Nicotine dependence, cigarettes, uncomplicated; Z71.6 Tobacco abuse counseling; Z79.899 Other long term (current) drug therapy; Z20.822 Contact with and (suspected) exposure to COVID-19
CPT/HCPCS: 10060; 36415; 49083; 74177; 80053; 82947; 83605; 83735; 85025; 85610; 87040; 87070; 87077; 87186; 87205; 87635; 96361; 96374; 99284; J2543; P9047; Q9967

== ENCOUNTER 2022-02-25 11:12 | Day surgery (SDC) | payer MEDICARE, MEDICAID, SELFPAY ==
--- NOTE | ~2022-02-25 | US_ITS ---
EXAMINATION: ULTRASOUND-GUIDED PARACENTESIS. CLINICAL INFORMATION: Liver carcinoma and ascites. COMPARISON: None TECHNIQUE: Following explaining ultrasound-guided paracentesis procedure, benefits and risk, a written consent was obtained. Patient was placed supine on fluoroscopy table and preliminary ultrasound imaging of the abdomen was obtained. An optimal site was selected along the right anterolateral lower quadrant and marked. Marked site was cleaned and draped in usual sterile manner. 1% lidocaine was injected at puncture site. Through a small skin incision a 4 [place] InterviewBesteh catheter was advanced into the peritoneal space. After observing fluid stylet was withdrawn and catheter connected to syringe and subsequently a vacuum bottle via connecting cannula. Postprocedure needle was removed and complete hemostasis achieved at puncture site. Patient tolerated procedure extremely well. Simple Band-Aid applied postprocedure. FINDINGS: On preliminary ultrasound imaging there is a [id number] amount of free fluid in the anterior lower quadrant. Approximately 10.9 L of clear yellowish fluid drained from the right lower quadrant. None of this fluid was sent to lab for cytology. IV 25 mg of albumin was given during exam. US/US paracentesis abd w/image IMPRESSION: Successful ultrasound-guided therapeutic paracentesis performed.
[2022-02-25 11:45] VITALS: BMI 29.1
[2022-02-25 12:07] VITALS: BP 127/73; PULSE 97; RESP 18; TEMP 36.6; O2SAT 100
[2022-02-25 12:27] LABS: Glucose, Whole Blood 119 mg/dL (60-115)
[2022-02-25 14:45] VITALS: BP 91/52; PULSE 64; RESP 17; TEMP 36.9; O2SAT 100
[2022-02-25] MEDS: Lidocaine HCl 1 % MPF 5 ML VIAL 10 ML SUBCUT (14:50)
[2022-02-25 15:00] VITALS: BP 93/58; PULSE 66; RESP 15; O2SAT 100
[2022-02-25 15:30] VITALS: BP 100/54; PULSE 72; RESP 15; O2SAT 100
[2022-02-25 16:00] VITALS: BP 109/54; PULSE 72; RESP 15; O2SAT 100
[2022-02-25 16:30] VITALS: BP 103/54; PULSE 69; RESP 14; TEMP 36.8; O2SAT 100
== END 2022-02-25 16:43 | disposition home or self-care (01) ==
PROVIDERS: Radiology Diagnostic Radiology; Visit Provider Internal Medicine Gastroenterology
DX: R18.8 Other ascites (principal); K74.60 Unspecified cirrhosis of liver; C22.0 Liver cell carcinoma; D50.9 Iron deficiency anemia, unspecified; I10 Essential (primary) hypertension; E78.5 Hyperlipidemia, unspecified; A53.0 Latent syphilis, unspecified as early or late; Z86.19 Personal history of other infectious and parasitic diseases; U07.1 COVID-19; J98.8 Other specified respiratory disorders; Z79.82 Long term (current) use of aspirin; Z79.899 Other long term (current) drug therapy; F17.210 Nicotine dependence, cigarettes, uncomplicated
CPT/HCPCS: 49083; 82947; P9047

== ENCOUNTER 2022-03-04 11:06 | Day surgery (SDC) | payer MEDICARE, MEDICAID, SELFPAY ==
[2022-03-04] VITALS (7 sets, daily range): BP systolic 94–105; BP diastolic 47–59; PULSE 62–75; RESP 15–16; TEMP 36.3–36.9; O2SAT 98–100; BMI 28.5
--- NOTE | ~2022-03-04 | US_ITS ---
EXAMINATION: ULTRASOUND-GUIDED PARACENTESIS CLINICAL INFORMATION: Ascites COMPARISON: Previous exam most recent 02/25/2022 TECHNIQUE: Procedure and risks and benefits including bleeding, infection and low blood pressure were discussed with the patient and informed consent was obtained. Left lower quadrant was prepped and draped in the usual sterile fashion. The skin and soft tissues were anesthetized 1% lidocaine plain. Using ultrasound guidance and a 5 Ch[place] rapid centesis catheter, access to the ascitic fluid was obtained. 8.4 L of clear yellow fluid was removed. No specimen was sent. The patient received 2 bottles of albumin during the procedure. FINDINGS: There is a large amount of ascites. US/US paracentesis abd w/image IMPRESSION: Ultrasound-guided paracentesis.
[2022-03-04 11:56] LABS: Glucose, Whole Blood 97 mg/dL (60-115)
--- NOTE | 2022-03-04 14:11 | HO.RADPN ---
RADIOLOGY Narrative Narrative: LLQ paracentesis using 5 fr catheter. 8L fluid removed. No specimen sent.
[2022-03-04] MEDS: Lidocaine HCl 1 % MPF 5 ML VIAL 10 ML SUBCUT (14:21)
== END 2022-03-04 16:22 | disposition home or self-care (01) ==
PROVIDERS: Radiology Diagnostic Radiology; Visit Provider Internal Medicine Gastroenterology
DX: R18.8 Other ascites (principal); C22.0 Liver cell carcinoma; K74.60 Unspecified cirrhosis of liver; I10 Essential (primary) hypertension; D50.9 Iron deficiency anemia, unspecified; L29.8 Other pruritus; A53.0 Latent syphilis, unspecified as early or late; Z79.899 Other long term (current) drug therapy; Z86.73 Personal history of transient ischemic attack (TIA), and cerebral infarction without residual deficits; Z86.19 Personal history of other infectious and parasitic diseases; Z86.16 Personal history of COVID-19; F17.210 Nicotine dependence, cigarettes, uncomplicated
CPT/HCPCS: 49083; 82947; P9047

== ENCOUNTER → 2022-03-08 09:04 | Outpatient (BNVA) | payer MEDICARE, MEDICAID, SELFPAY | PROVIDERS: PCP Internal Medicine; Visit Provider Internal Medicine Gastroenterology | DX: K74.69 Other cirrhosis of liver (principal); C22.0 Liver cell carcinoma | CPT/HCPCS: 99212 ==

== ENCOUNTER 2022-03-09 03:24 | Inpatient (IN) | payer MEDICARE, MEDICAID, SELFPAY ==
[2022-03-09] VITALS (7 sets, daily range): BP systolic 95–131; BP diastolic 51–100; PULSE 65–84; RESP 16–20; TEMP 36.1–36.9; O2SAT 95–100; BMI 25.8
--- NOTE | ~2022-03-09 | CT_ITS ---
EXAMINATION: CT ABDOMEN AND PELVIS WITHOUT CONTRAST CLINICAL INFORMATION: Lower abdominal pain, history liver cancer, cirrhosis COMPARISON: 02/19/2022 TECHNIQUE: Multidetector volumetric imaging was performed from the superior aspect of the liver through the pubic symphysis. Sagittal and coronal reformatted images were obtained on the technologist's workstation. This CT examination was performed using dose optimization techniques as appropriate, variously including the following: *Automated exposure control *Adjustment of mA and/or kV according to patient size (this includes techniques or standardized protocols for targeted exams where dose is matched to indication/reason for exam; i.e. extremities or head) *Use of iterative reconstruction technique DLP: 562 mGy-cm FINDINGS: LUNG BASES: The visualized lung bases are unremarkable. LIVER, GALLBLADDER, AND BILIARY TREE: Nodular hepatic contour consistent with cirrhosis. Redemonstrated postsurgical changes of the left lobe, similar in appearance to prior. No definite new focal hepatic abnormality, though assessment for this is limited without intravenous contrast. Cholelithiasis is noted. No significant intrahepatic biliary ductal dilatation. PANCREAS: Unremarkable. SPLEEN: Redemonstrated splenomegaly, with the spleen measuring approximately 16 cm in the axial plane. ADRENAL GLANDS: Unremarkable. KIDNEYS AND URETERS: No hydronephrosis or obstructing calculus. Redemonstrated left renal cyst; no follow-up recommended. Redemonstrated small left lower pole renal calculus. BLADDER: Unremarkable. GASTROINTESTINAL TRACT: No evidence of bowel obstruction. Limited assessment for wall thickening in some segments of the colon due to luminal collapse. There is mural prominence of the collapsed ascending colon which may reflect portal colopathy. Appendix appears nondilated. Moderate to large volume ascites, increased from prior. No free air is seen. ABDOMINAL WALL: No significant hernia is appreciated. LYMPH NODES: No lymphadenopathy is seen, though assessment is limited in the absence of intravenous contrast. VASCULAR: There is atherosclerotic calcification along the aorta and iliac arteries. PELVIC VISCERA: Unremarkable. OSSEOUS STRUCTURES: Mild degenerative changes are present in the spine. CT/CT abdomen pelvis wo IV con IMPRESSION: 1. Moderate to large volume ascites, increased from 02/19/2022. 2. Mural prominence of the collapsed ascending colon may reflect portal colopathy. 3. Redemonstrated findings of cirrhosis and portal hypertension. Limited assessment for focal hepatic abnormalities without intravenous contrast. 4. Cholelithiasis.
--- NOTE | ~2022-03-09 | CT_ITS ---
EXAMINATION: CT HEAD WITHOUT CONTRAST CLINICAL INFORMATION: Dizziness, low suspicion brain metastases COMPARISON: MRI 02/06/2011 TECHNIQUE: Contiguous axial imaging was performed from the skull base to vertex without intravenous administration of contrast. This CT examination was performed using dose optimization techniques as appropriate, variously including the following: *Automated exposure control *Adjustment of mA and/or kV according to patient size (this includes techniques or standardized protocols for targeted exams where dose is matched to indication/reason for exam; i.e. extremities or head) *Use of iterative reconstruction technique DLP: 749 mGy-cm FINDINGS: There is no evidence of acute intracranial hemorrhage or territorial infarction. No abnormal mass-effect or midline shift is seen. Olivera to white matter differentiation is well preserved. No extra-axial fluid collections are identified. The ventricles are normal in size. There is mild periventricular white matter hypoattenuation consistent with chronic small vessel ischemic disease. The osseous structures and soft tissues are normal. The mastoid air cells and visualized portions of the paranasal sinuses are well-aerated. CT/CT head/brain wo IV con IMPRESSION: No acute intracranial pathology. Of note, assessment for intracranial masses would be best performed with MRI.
[2022-03-09 04:00] LABS: MANUAL DIFF FLAG NO
[2022-03-09 04:11] LABS: Basophils Absolute Auto 0.1 X10*3/uL (0.0-0.2); Basophils Percent Auto 0.9 % (0-2); Eosinophils Absolute Auto 0.8 X10*3/uL (0.0-0.4); Eosinophils Percent Auto 6.5 % (0-4); Hematocrit 30.6 % (42.0-52.0); Hemoglobin 10.5 g/dl (14.0-18.0); Imm Gran Abs Auto 0.07 X10*3/uL (0.00-0.03); Imm Gran Pct Auto 0.5 % (0.0-0.4); Lymphocytes Absolute Auto 0.6 X10*3/uL (1.2-4.9); Lymphocytes Percent Auto 4.8 % (20-40); Mean Corpuscular HGB Conc 34.3 g/dl (31.0-36.0); Mean Corpuscular Hemoglobin 29.3 pg (27.0-33.0); Mean Corpuscular Volume 85.5 fL (80.0-98.0); Mean Platelet Volume 10.7 fL (9.4-12.4); Monocytes Absolute Auto 1.4 X10*3/uL (0.1-1.2); Neutrophils Absolute Auto 9.8 x10*3/uL (2.0-8.3); Neutrophils Percent Auto 76.3 % (45-73); Platelet Count 89 X10*3/uL (160-400); Red Blood Count 3.58 X10*6/uL (4.60-5.80); White Blood Count 12.8 X10*3/uL (4.8-10.8)
[2022-03-09 04:12] LABS: INTERNATIONAL NORM RATIO 1.9 (0.9-1.1); Prothrombin Time 22.3 SEC (10.0-13.1)
[2022-03-09 04:13] LABS: COVID-19 Test Negative (Negative)
[2022-03-09 04:24] LABS: Troponin-I High Sensitivity 7.5 ng/L (<3.5-35.0)
[2022-03-09 04:25] LABS: Alanine Aminotransferase 29 U/L (0-40); Albumin Level 3.4 g/dL (3.5-5.0); Alkaline Phosphatase 214 U/L (39-117); Anion Gap 17 (12-20); Aspartate Amino Transferase 52 U/L (5-37); Bilirubin Direct 1.4 mg/dL (0.0-0.5); Bilirubin Total 3.2 mg/dL (0.0-1.0); Blood Urea Nitrogen 43 mg/dL (9-16); Calcium 8.9 mg/dL (8.4-10.2); Carbon Dioxide 14 mmol/L (22-29); Chloride 107 mmol/L (96-108); Creatinine Clr Calc Pharmacy 29.8; Estimated Glomerular Filt Rate 30; Glucose Random 140 mg/dL (60-115); Lipase 237 U/L (8-78); Potassium 3.5 mmol/L (3.3-5.1); Sodium 134 mmol/L (135-145); Total Protein 6.3 g/dL (6.5-8.0)
--- NOTE | 2022-03-09 05:02 | ED.ABDPAIN ---
HPI - Abdominal Pain General Chief Complaint: Abdominal Pain Stated Complaint: lower Abd Pain Time Seen by Provider: 03/09/22 04:43 Source: patient and EMS Mode of arrival: EMS Limitations: no limitations History of Present Illness HPI narrative: Patient comes to the emergency room complaining of 6 hours of right lower quadrant pain. Patient states that he has been mildly nauseous, no vomiting. Patient states that he has had intermittent dizziness, no headaches. Overall, patient is not feeling well. Denies any diarrhea, no chest pain or shortness of breath Related Data Home Medications Medication Instructions Recorded Confirmed cholecalciferol (vitamin D3) 50 50 mcg PO DAILY 03/03/20 02/25/22 mcg (2,000 unit) capsule aspirin 81 mg tablet 81 mg PO DAILY 03/25/20 02/25/22 furosemide 20 mg tablet (Lasix) 40 mg PO BID 08/04/21 02/25/22 nadolol 20 mg tablet 30 mg PO QPM 08/04/21 02/25/22 pantoprazole 40 mg tablet,delayed 40 mg PO BID 12/04/21 02/25/22 release potassium chloride 20 mEq 20 meq PO DAILY 02/01/22 02/25/22 tablet,extended release(part/cryst) (Klor-Con M) spironolactone 50 mg tablet 100 mg PO BID 02/01/22 02/25/22 sucralfate 1 gram tablet 1 g PO QID 03/08/22 Previous Rx's Medication Instructions Recorded Januvia 25 mg tablet (sitagliptin) 25 mg PO DAILY 30 days #30 tabs 11/10/21 cephalexin 500 mg capsule 500 mg PO Q6H 10 days #40 caps 02/19/22 cholestyramine (with sugar) 4 gram 4 g PO QID #378 grams 02/19/22 oral powder doxycycline monohydrate 100 mg 100 mg PO BID 10 days #20 tabs 02/19/22 tablet gentamicin 0.1 % topical ointment 1 appl topical TID #30 grams 02/19/22 bacitracin 500 unit/gram topical 1 appl topical TID #30 grams 03/01/22 ointment hydroxyzine HCl 10 mg tablet 10 mg PO BEDTIME #7 tabs 03/01/22 naltrexone 50 mg tablet 50 mg PO DAILY 14 days #14 tabs 03/08/22 Allergies Allergy/AdvReac Type Severity Reaction Status Date / Time No Known Allergies Allergy Verified 03/08/22 09:10 [No Known Allergies*] [facility] Past Medical History Medical History Acute respiratory disease due to COVID-19 virus Benign essential hypertension Benign prostate hyperplasia Cerebrovascular accident (CVA) Cirrhosis of liver without ascites Dyslipidemia Hepatocellular carcinoma History of hepatitis C 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 Obesity (BMI 30-39.9) Smoker Umbilical hernia Surgical History History of esophagogastroduodenoscopy (EGD) (~2019) History of hernia surgery History of resection of liver History of surgery Hx of colonoscopy Family History Family History Father Diabetes Mother Diabetes Alzheimer disease Chronic mental illness Brother No problems noted. Brother No problems noted. Brother No problems noted. Sister No problems noted. Son No problems noted. Son No problems noted. Son No problems noted. Other Substance abuse Social History Social History Household Members: Significant Other Housing: Apartment Alcohol intake: former Patient Tobacco Use Status: Current everyday Tobacco user Tobacco use type: Cigarette Smoked in Last 30 Days: Yes Second Hand Smoke Exposure: Yes Use of substances other than those prescribed or required for medical reasons: No Advance Directives: No Advance Directives Information Provided: Yes Current occupational status: unemployed Cognitive needs: No Hearing needs: No Vision needs: Yes Physical Exam ED Vital Signs: Vital Signs - 24 hr 03/09/22 03:33 03/09/22 05:42 Temperature 98.5 F 98.1 F Pulse Rate 80 80 Respiratory Rate 20 16 Blood Pressure 112/67 131/73 Pulse Oximetry 98 95 Oxygen Delivery Method Room Air Room Air BMI result Body Mass Index 25.8 Const Other: Appearance: Alert. Oriented X3. Seems weak Eyes: Pupils equal, round and reactive to light. ENT: Pharynx normal. Neck: Normal inspection. Neck supple. No lymph nodes noted. No crepitus CVS: Normal heart rate and rhythm. Pulses normal. Normal S1 and S2 Respiratory: No respiratory distress. Breath sounds normal. No Wheezing. No rales Abdomen: Soft and nontender. No rigidity. No distention. Skin: Skin warm and dry. Mild diffuse icterus Extremities: No lower extremity edema. No Lacerations. No Rash Neuro: Oriented X 3. No motor deficit. No sensory deficit. Moving all extremities. No slurred speech. CN 2 through 12 grossly intact Psych: calm, cooperative, normal affect Procedures Paracentesis Time Out Performed: Yes Indication: possible spontaneous bacterial peritonitis Procedure: therapeutic paracentesis Location: LLQ Local Anesthetic: lidocaine 1% Amount of anesthesia used (mL): 9 Bedside Ultrasound Used: yes, real-time guidance Preparation: 11 blade used to make hermelindo in skin Amount of fluid obtained (mL): 5,100 Fluid: clear Post Procedure Exam: awake, alert, normal BP and normal HR Patient Tolerated Procedure: well and no complications Complications: none Course Course Course Narrative: Overall patient seems a bit decompensated. White blood cell count elevated 12.8, patient does not have significant abdominal pain. Patient does have acute on chronic YANETH, today above baseline at 2.17. CT scan of the abdomen pending. Also, patient reported some dizziness, a CT scan of the head has been ordered to rule out brain metastasis. CT scan negative for obvious metastasis. I discussed the patient with our hospitalist. Patient initially came in for abdominal pain, he now no longer has abdominal pain after he received 2 mg of morphine. However, patient's white blood cell count is elevated. Patient has not given urine yet but he has no UTI symptoms. We will obtain fluid from the abdomen and sent to the lab to rule out SBP. Patient is agreeable with plan. Dr. Gayle accepted the pt, aware that the labs for Labs for the abdominal paracentesis are pending PAracenthesis: clear fluid, 5100mL, tolerated well the procedure. Pt received one dose of IV albumin MDM - Abdominal Pain Lab Data Result diagrams: 03/09/22 03:55 03/09/22 03:56 Labs: Lab Results 03/09/22 03/09/22 03/09/22 Range/Units 03:50 03:55 03:55 WBC 12.8 H (4.8-10.8) X10*3/uL RBC 3.58 L (4.60-5.80) X10*6/uL Hgb 10.5 L (14.0-18.0) g/dl Hct 30.6 L (42.0-52.0) % MCV 85.5 (80.0-98.0) fL MCH 29.3 (27.0-33.0) pg MCHC 34.3 (31.0-36.0) g/dl RDW 18.0 H (11.0-16.0) % Plt Count 89 L (160-400) X10*3/uL MPV 10.7 (9.4-12.4) fL Immature Gran % (Auto) 0.5 H (0.0-0.4) % Neut % (Auto) 76.3 H (45-73) % Lymph % (Auto) 4.8 L (20-40) % Miller % (Auto) 11.0 (2-11) % Eos % (Auto) 6.5 H (0-4) % Baso % (Auto) 0.9 (0-2) % Lymph # (Auto) 0.6 L (1.2-4.9) X10*3/uL Miller # (Auto) 1.4 H (0.1-1.2) X10*3/uL Eos # (Auto) 0.8 H (0.0-0.4) X10*3/uL Baso # (Auto) 0.1 (0.0-0.2) X10*3/uL Abs Immat Gran (auto) 0.07 H (0.00-0.03) X10*3/uL Absolute Neuts (auto) 9.8 H (2.0-8.3) x10*3/uL Absolute Nucleated RBC 0.000 (0.0-0.012) X10*3/uL Nucleated RBC % (auto) 0.0 (0.0-0.2) /100WBC PT (10.0-13.1) SEC INR (0.9-1.1) Sodium (135-145) mmol/L Potassium (3.3-5.1) mmol/L Chloride (96-108) mmol/L Carbon Dioxide (22-29) mmol/L Anion Gap (12-20) BUN (9-16) mg/dL Creatinine (0.5-1.4) mg/dL Estim Creat Clear Calc Estimated GFR Random Glucose (60-115) mg/dL Calcium (8.4-10.2) mg/dL Total Bilirubin (0.0-1.0) mg/dL Direct Bilirubin (0.0-0.5) mg/dL AST (5-37) U/L ALT (0-40) U/L Alkaline Phosphatase (39-117) U/L Troponin I High Sens 7.5 (<3.5-35.0) ng/L Total Protein (6.5-8.0) g/dL Albumin (3.5-5.0) g/dL Lipase (8-78) U/L COVID-19 (KESHA) Negative (Negative) COVID-19 Clin Com See Note 03/09/22 03/09/22 Range/Units 03:56 03:56 WBC (4.8-10.8) X10*3/uL RBC (4.60-5.80) X10*6/uL Hgb (14.0-18.0) g/dl Hct (42.0-52.0) % MCV (80.0-98.0) fL MCH (27.0-33.0) pg MCHC (31.0-36.0) g/dl RDW (11.0-16.0) % Plt Count (160-400) X10*3/uL MPV (9.4-12.4) fL Immature Gran % (Auto) (0.0-0.4) % Neut % (Auto) (45-73) % Lymph % (Auto) (20-40) % Miller % (Auto) (2-11) % Eos % (Auto) (0-4) % Baso % (Auto) (0-2) % Lymph # (Auto) (1.2-4.9) X10*3/uL Miller # (Auto) (0.1-1.2) X10*3/uL Eos # (Auto) (0.0-0.4) X10*3/uL Baso # (Auto) (0.0-0.2) X10*3/uL Abs Immat Gran (auto) (0.00-0.03) X10*3/uL Absolute Neuts (auto) (2.0-8.3) x10*3/uL Absolute Nucleated RBC (0.0-0.012) X10*3/uL Nucleated RBC % (auto) (0.0-0.2) /100WBC PT 22.3 H (10.0-13.1) SEC INR 1.9 H (0.9-1.1) Sodium 134 L (135-145) mmol/L Potassium 3.5 (3.3-5.1) mmol/L Chloride 107 (96-108) mmol/L Carbon Dioxide 14 L (22-29) mmol/L Anion Gap 17 (12-20) BUN 43 H D (9-16) mg/dL Creatinine 2.17 H (0.5-1.4) mg/dL Estim Creat Clear Calc 29.8 Estimated GFR 30 Random Glucose 140 H D (60-115) mg/dL Calcium 8.9 (8.4-10.2) mg/dL Total Bilirubin 3.2 H (0.0-1.0) mg/dL Direct Bilirubin 1.4 H (0.0-0.5) mg/dL AST 52 H (5-37) U/L ALT 29 (0-40) U/L Alkaline Phosphatase 214 H D (39-117) U/L Troponin I High Sens (<3.5-35.0) ng/L Total Protein 6.3 L (6.5-8.0) g/dL Albumin 3.4 L (3.5-5.0) g/dL Lipase 237 H (8-78) U/L COVID-19 (KESHA) (Negative) COVID-19 Clin Com Critical Care Time Critical Care Time Critical Care Time: Yes Total Critical Care Time: 30 Attestation: I have personally provided critical care time. Time includes review of lab data, radiology results, discussion with consultants, and monitoring for potential decompensation. Intervention performed as documented. Discharge Plan Discharge Clinical Impression: YANETH (acute kidney injury), Abdominal pain Patient Disposition: Admitted As Inpatient
[2022-03-09] MEDS: Morphine Sulfate 2 MG/ML CARTRIDGE IVPUSH (05:09)
[2022-03-09] MEDS: 0.9 % Sodium Chloride 1,000 ML 999 ML IVCONT (05:09)
--- NOTE | 2022-03-09 07:00 | PC.NURSE ---
This administrative underwriter assumed care for this PT at 0700/
[2022-03-09 07:37] LABS: MN% 94.7 %; PMN% 5.3 %; WBC Peritoneal Fluid 0.189 X10*3/uL
--- NOTE | 2022-03-09 07:38 | PC.NURSE ---
Patient tolerated paracentesis well. 5000 cc obtained. clear yellow fluid. sent to lab. Site covered with 2x2 and tegaderm. alert and oriented with no complaints. placed on equipment monitor phototypesetting.
[2022-03-09 07:39] LABS: RBC Peritoneal Fluid < 0.002 X10*6/uL
--- NOTE | 2022-03-09 07:56 | PHA.MEDREC ---
Pharmacy Consult ? Medication Reconciliation Pharmacy has completed the medication reconciliation.Spoke to patient and got medication list from him based on pictures of bottles he took before he left the house. He states all of his last doses were taken on 03/08/22 both morning and evening doses. Also states spironolactone was dc'd in last 48 hours.
[2022-03-09] MEDS: Albumin Human 25 % 100 ML IV (07:57)
[2022-03-09] MEDS: Lidocaine HCl 2 % MPF 5 ML VIAL 10 ML INFILTRATI (08:00)
[2022-03-09 08:30] LABS: Neutrophils Peritoneal Fluid 1 %
[2022-03-09 08:34] LABS: BF Shift QC OK YES; Lymphocyte Peritoneal Fl 22 %; Man Diluent Bkgrd OK YES; Monocytes Peritoneal Fl 16 %; Other Peritioneal Fl 61 %
--- NOTE | 2022-03-09 09:00 | P.HPHOSP_ITS ---
History of Present Illness Date of Service: 03/09/22 Chief Complaint: Abdominal Pain This is a 66-year-old male with pertinent history of hepatitis C complicated by liver cirrhosis with biopsy-proven hepatocellular carcinoma diagnosed in 2018 status post laparoscopic resection of liver, TACE, radiation therapy with invasion of portal vein, who received treatment at [facility] but to since tumor is not responsive to therapy, patient is being managed locally by Dr. Hansen with paracentesis presents to the emergency department with complaints of abdominal pain. Patient states it started 1 day prior to presentation, right lower quadrant in location, intermittent and without any relieving factors or aggravating factors. It was associated with nausea and episodes of nonbloody diarrhea. Patient denies fever, chills, vomiting, chest discomfort, palpitations, shortness of breath. Denies any relation of the pain to food. Denies symptoms of gastroesophageal reflux disease In the emergency department, patient was found to have acute kidney injury. Paracentesis was performed Review of Systems Constitutional: Constitutional: Reports no additional constitutional complaints Cardiovascular: Cardiovascular: Reports no additional cardiovascular com plaints Respiratory: Respiratory: Reports no additional respiratory complaints Gastrointestinal: Gastrointestinal: Reports abdominal pain and Reports nausea PMFSH Medical History Acute respiratory disease due to COVID-19 virus Benign essential hypertension Benign prostate hyperplasia Cerebrovascular accident (CVA) Cirrhosis of liver without ascites Dyslipidemia Hepatocellular carcinoma History of hepatitis C 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 Obesity (BMI 30-39.9) Smoker Umbilical hernia Family History Father Diabetes Mother Diabetes Alzheimer disease Chronic mental illness Brother No problems noted. Brother No problems noted. Brother No problems noted. Sister No problems noted. Son No problems noted. Son No problems noted. Son No problems noted. Other Substance abuse Surgical History History of esophagogastroduodenoscopy (EGD) (~2019) History of hernia surgery History of resection of liver History of surgery Hx of colonoscopy Social History Household Members: Significant Other Housing: Apartment Alcohol intake: former Patient Tobacco Use Status: Current everyday Tobacco user Tobacco use type: Cigarette Smoked in Last 30 Days: Yes Second Hand Smoke Exposure: Yes Use of substances other than those prescribed or required for medical reasons: No Advance Directives: No Advance Directives Information Provided: Yes Current occupational status: unemployed Cognitive needs: No Hearing needs: No Vision needs: Yes Meds Allergies Allergy/AdvReac Type Severity Reaction Status Date / Time No Known Allergies Allergy Verified 03/08/22 09:10 [No Known Allergies*] Active Medications: Current Medications Acetaminophen (Acetaminophen 325 Mg Tablet) 650 mg PO Q6H PRN PRN Reason: Pain, Mild (Pain Scale 1-3) Enoxaparin Sodium (Enoxaparin Sodium 30 Mg/0.3 Ml Syringe) 30 mg SUBCUT Q24H KRISH Melatonin (Melatonin 3 Mg Tablet) 6 mg PO BEDTIME PRN PRN Reason: Insomnia Ondansetron HCl (Ondansetron Hcl 4 Mg/2 Ml Vial) 4 mg IVPUSH Q8H PRN PRN Reason: Nausea and Vomiting Sodium Chloride (0.9 % Sodium Chloride Flush 3 Ml Syringe) 3 ml IVFLUSH QSHIFT [facility] Home Medications Medication Instructions Recorded Confirmed Last Taken Type cholecalciferol (vitamin D3) 50 50 mcg PO DAILY 03/03/20 03/09/22 03/08/22 History mcg (2,000 unit) capsule aspirin 81 mg tablet 81 mg PO DAILY 03/25/20 03/09/22 03/08/22 History furosemide 20 mg tablet (Lasix) 40 mg PO BID 08/04/21 03/09/22 03/08/22 History nadolol 20 mg tablet 30 mg PO QPM 08/04/21 03/09/22 03/08/22 History pantoprazole 40 mg tablet,delayed 40 mg PO BID 12/04/21 03/09/22 03/08/22 History release potassium chloride 20 mEq 20 meq PO DAILY 02/01/22 03/09/22 03/08/22 History tablet,extended release(part/cryst) (Klor-Con M) sucralfate 1 gram tablet 1 g PO QID 03/08/22 03/09/22 03/08/22 History Physical Exam Vital Signs and Narrative: Vital Signs: Last Vital Signs Temp 98.1 F 03/09/22 05:42 Pulse 81 03/09/22 08:25 Resp 19 03/09/22 08:25 BP 100/54 L 03/09/22 08:25 Pulse Ox 99 03/09/22 08:25 O2 Del Method 03/09/22 08:25 BMI result Body Mass Index 25.8 Middle-aged male lying in bed in no distress Neck supple, no JVD Regular rate and rhythm, S1-S2 heard Regular breath sounds bilaterally, no wheezing or crackles appreciated Abdomen mild lower quadrant tenderness, no rebound tenderness, no guarding, no rigidity Patient is awake, alert and oriented to self, place, time and person ; no focal motor deficit Psych: Normal mood No pedal edema Results Labs CBC and Chem 7: 03/09/22 03:55 03/09/22 03:56 Labs: Laboratory Results - last 24 hr 03/09/22 03/09/22 03/09/22 03:50 03:55 03:55 MCV 85.5 MCH 29.3 MCHC 34.3 RDW 18.0 H Plt Count 89 L MPV 10.7 Immature Gran % (Auto) 0.5 H Neut % (Auto) 76.3 H Lymph % (Auto) 4.8 L Bureau % (Auto) 11.0 Eos % (Auto) 6.5 H Baso % (Auto) 0.9 Lymph # (Auto) 0.6 L Bureau # (Auto) 1.4 H Eos # (Auto) 0.8 H Baso # (Auto) 0.1 Abs Immat Gran (auto) 0.07 H Absolute Neuts (auto) 9.8 H Absolute Nucleated RBC 0.000 Nucleated RBC % (auto) 0.0 PT INR Anion Gap Estim Creat Clear Calc Estimated GFR Random Glucose Calcium Total Bilirubin Direct Bilirubin AST ALT Alkaline Phosphatase Troponin I High Sens 7.5 Total Protein Albumin Lipase Peritoneal WBC Peritoneal RBC Periton Neutrophils Periton Lymphocytes Peritoneal Monocytes Peritoneal Other Cells COVID-19 (KESHA) Negative COVID-19 Clin Com See Note 03/09/22 03/09/22 03/09/22 03:56 03:56 07:14 MCV MCH MCHC RDW Plt Count MPV Immature Gran % (Auto) Neut % (Auto) Lymph % (Auto) Bureau % (Auto) Eos % (Auto) Baso % (Auto) Lymph # (Auto) Bureau # (Auto) Eos # (Auto) Baso # (Auto) Abs Immat Gran (auto) Absolute Neuts (auto) Absolute Nucleated RBC Nucleated RBC % (auto) PT 22.3 H INR 1.9 H Anion Gap 17 Estim Creat Clear Calc 29.8 Estimated GFR 30 Random Glucose 140 H D Calcium 8.9 Total Bilirubin 3.2 H Direct Bilirubin 1.4 H AST 52 H ALT 29 Alkaline Phosphatase 214 H D Troponin I High Sens Total Protein 6.3 L Albumin 3.4 L Lipase 237 H Peritoneal WBC 0.189 Peritoneal RBC < 0.002 Periton Neutrophils 1 Periton Lymphocytes 22 Peritoneal Monocytes 16 Peritoneal Other Cells 61 COVID-19 (KESHA) COVID-19 Clin Com Imaging Radiologist's Impressions: Impressions Abdomen/Pelvis CT 03/09/22 05:30 IMPRESSION: 1. Moderate to large volume ascites, increased from 02/19/2022. 2. Mural prominence of the collapsed ascending colon may reflect portal colopathy. 3. Redemonstrated findings of cirrhosis and portal hypertension. Limited assessment for focal hepatic abnormalities without intravenous contrast. 4. Cholelithiasis. Head CT 03/09/22 05:40 IMPRESSION: No acute intracranial pathology. Of note, assessment for intracranial masses would be best performed with MRI. Assessment and Plan (1) Abdominal pain: Status: Acute (2) YANETH (acute kidney injury): Status: Acute (3) Cirrhosis of liver: Status: Acute (4) Diabetes type 2, controlled: Status: Acute Plan This is a 66-year-old male with pertinent history of hepatitis C complicated by liver cirrhosis with biopsy-proven hepatocellular carcinoma diagnosed in 2018 status post laparoscopic resection of liver, TACE, radiation therapy, [id number] diabetes mellitus presents to the emergency department with complaints of abdominal pain. #. Abdominal pain -will admit patient with IV Rocephin for concerns of SBP in a patient with abdominal discomfort and ascites. Monitor ascites fluid studies and cultures. Other differential is gastroenteritis ?viral with diarrhea. No concern for sepsis. Will send stool studies. Low threshold to consult GI if abdominal pain does not improve in this high-risk patient #. History of a paretic C complicated with cirrhosis biopsy-proven hepatocellular carcinoma -diagnosed in 2018 status post laparoscopic resection of liver, TACE, radiation therapy with invasion of portal vein, who received treatment at [facility] but since tumor is not responsive to therapy, patient is being managed locally by Dr. Hansen with paracentesis. Underwent paracentesis in ER with more than 4.5 L, studies pending. Will hold diuretics #. Acute kidney injury -likely prerenal in the setting of diarrhea. Will rehydrate and monitor urine output and creatinine. Hold diuretics and avoid nephrotoxins #. Bju-cgozomt-pgaubzgoa diabetes mellitus -initiate Accu-Cheks with sliding scale insulin while in the hospital. Hold po medication #. Chronic normocytic anemia -obtain iron studies. Hemoglobin above transfusion threshold DVT prophylaxis: Lovenox 30 mg daily Diet: Low-sodium diet Full code Quality Stroke Does the patient have a stroke diagnosis?: No VTE Prior VTE?: No VTE Risk Level:: Medical - moderate - high VTE Device Contraindication: Treatment Not Indicated VTE Drug Contraindication: N/A - Med Ordered
[2022-03-09 09:36] LABS: Appearance Urine Clear; Color Urine Yellow; Glucose Urine UA Negative (Negative); Leukocyte Esterase Urine Negative (Negative); Nitrite Urine Negative (Negative); PH 5.5 (5.0-9.0); UMIC TRIGGER UACC YES; Urine Blood Trace (Negative); Urine Ketones Negative (Negative); Urine Protein Negative (Neg-Trace)
[2022-03-09 10:03] LABS: Bacteria Urine None Seen (None Seen); Hyaline Casts Urine >20 /LPF (0-2); Squamous Epithelial Cell Urine 0-2 /HPF (0-2); WBC Urine 0-5 /HPF (0-5)
[2022-03-09] MEDS: cefTRIAXone sodium 1 GM in 0.9 % Sodium Chloride 50 ML IV (10:29)
[2022-03-09] MEDS: Aspirin Enteric Coated 81 MG TABLET.DR PO (10:33)
[2022-03-09] MEDS: Sucralfate 1 GM TABLET PO ×4 (10:33→20:15)
[2022-03-09] MEDS: Enoxaparin Sodium 30 MG/0.3 ML SYRINGE SUBCUT (10:33)
[2022-03-09] MEDS: Cholecalciferol (Vitamin D3) 25 MCG TABLET 50 MCG PO (10:33)
[2022-03-09] MEDS: Naltrexone HCl 50 MG TABLET PO (10:37)
[2022-03-09] MEDS: Albumin Human 25 % 50 ML 100 ML IV (10:50)
[2022-03-09 10:56] LABS: Glucose Peritoneal Fluid 133 MG/DL
[2022-03-09 10:59] LABS: Iron 92 mcg/dL (45-160); Percent Iron Saturation 45 % (15-50); Total Iron Binding Capacity 203 mcg/dL (228-428); Unsaturated Iron Binding 111 ug/dL
[2022-03-09 11:08] LABS: Estimated Average Glucose 82 mg/dL; Hemoglobin A1c % 4.5 %
[2022-03-09] MEDS: Cholestyramine (With Sugar) 4 GM POWD.PACK PO ×3 (13:27→20:15)
[2022-03-09] MEDS: Omeprazole 20 MG CAPSULE.DR PO (15:39)
[2022-03-09] MEDS: 0.9 % Sodium Chloride Flush 3 ML SYRINGE IVFLUSH (15:39)
[2022-03-09 15:53] LABS: Glucose, Whole Blood 106 mg/dL (60-115)
[2022-03-09] MEDS: nadoloL 20 MG TABLET 30 MG PO (20:15)
[2022-03-09] MEDS: hydrOXYzine HCL 10 MG TABLET PO (21:27)
--- NOTE | 2022-03-09 23:50 | PC.NURSE ---
Addendum entered by Neeta Maya RN 03/10/22 07:06: report given to SELINA Diaz Original Note: report received from SELINA Foley pt is alert and oriented resting in bed no signs of acute distress notice
[2022-03-10 05:29] LABS: MANUAL DIFF FLAG NO
[2022-03-10 05:31] LABS: Basophils Absolute Auto 0.1 X10*3/uL (0.0-0.2); Basophils Percent Auto 0.9 % (0-2); Eosinophils Absolute Auto 0.5 X10*3/uL (0.0-0.4); Hematocrit 23.8 % (42.0-52.0); Hemoglobin 8.2 g/dl (14.0-18.0); Imm Gran Abs Auto 0.03 X10*3/uL (0.00-0.03); Imm Gran Pct Auto 0.6 % (0.0-0.4); Lymphocytes Absolute Auto 0.5 X10*3/uL (1.2-4.9); Lymphocytes Percent Auto 9.4 % (20-40); Mean Corpuscular HGB Conc 34.5 g/dl (31.0-36.0); Mean Corpuscular Hemoglobin 29.7 pg (27.0-33.0); Mean Corpuscular Volume 86.2 fL (80.0-98.0); Mean Platelet Volume 11.8 fL (9.4-12.4); Monocytes Percent Auto 18.9 % (2-11); Neutrophils Absolute Auto 3.3 x10*3/uL (2.0-8.3); Neutrophils Percent Auto 61.2 % (45-73); Red Blood Count 2.76 X10*6/uL (4.60-5.80); Red Cell Distribution Width 17.9 % (11.0-16.0); White Blood Count 5.5 X10*3/uL (4.8-10.8)
[2022-03-10 05:50] LABS: Platelet Count 59 X10*3/uL (160-400)
[2022-03-10 05:55] LABS: Alanine Aminotransferase 20 U/L (0-40); Albumin Level 3.1 g/dL (3.5-5.0); Alkaline Phosphatase 133 U/L (39-117); Anion Gap 14 (12-20); Aspartate Amino Transferase 31 U/L (5-37); Bilirubin Total 2.4 mg/dL (0.0-1.0); Blood Urea Nitrogen 36 mg/dL (9-16); Calcium 8.4 mg/dL (8.4-10.2); Carbon Dioxide 12 mmol/L (22-29); Chloride 111 mmol/L (96-108); Creatinine Clr Calc Pharmacy 35.9; Estimated Glomerular Filt Rate 38; Glucose Random 126 mg/dL (60-115); Potassium 3.3 mmol/L (3.3-5.1); Sodium 134 mmol/L (135-145); Total Protein 5.3 g/dL (6.5-8.0)
[2022-03-10 06:09] VITALS: BP 97/56; PULSE 56; RESP 18; TEMP 36.2; O2SAT 100
[2022-03-10] MEDS: Omeprazole 20 MG CAPSULE.DR PO (06:11)
[2022-03-10] MEDS: Albumin Human 25 % 100 ML IV (08:15)
[2022-03-10] MEDS: Enoxaparin Sodium 30 MG/0.3 ML SYRINGE SUBCUT (08:17)
[2022-03-10] MEDS: Cholecalciferol (Vitamin D3) 25 MCG TABLET 50 MCG PO (08:18)
[2022-03-10] MEDS: Aspirin Enteric Coated 81 MG TABLET.DR PO (08:18)
[2022-03-10] MEDS: Naltrexone HCl 50 MG TABLET PO (08:19)
[2022-03-10] MEDS: Sucralfate 1 GM TABLET PO (08:19)
[2022-03-10] MEDS: 0.9 % Sodium Chloride Flush 3 ML SYRINGE IVFLUSH (08:20)
--- NOTE | 2022-03-10 09:30 | PM.DS ---
DS: Providers Provider Date of Service: 03/10/22 Date of admission: 03/09/22 13:42 Primary care physician: Unknown Physician DS: Diagnosis Discharge Diagnosis (1) Abdominal pain: Status: Acute (2) YANETH (acute kidney injury): Status: Acute (3) Cirrhosis of liver: Status: Acute (4) Diabetes type 2, controlled: Status: Acute DS: Summary Hospital Course Hospital Course: HPI: This is a 66-year-old male with pertinent history of hepatitis C complicated by liver cirrhosis with biopsy-proven hepatocellular carcinoma diagnosed in 2018 status post laparoscopic resection of liver, TACE, radiation therapy with invasion of portal vein, who received treatment at [facility] since tumor is not responsive to therapy, patient is being managed locally by Dr. Hansen with paracentesis presents to the emergency department with complaints of abdominal pain.? Patient states it started 1 day prior to presentation, right lower quadrant in location, intermittent and without any relieving factors or aggravating factors.? It was associated with nausea and episodes of nonbloody diarrhea.? Patient denies fever, chills, vomiting, chest discomfort, palpitations, shortness of breath.? Denies any relation of the pain to food.? Denies symptoms of gastroesophageal reflux disease In the emergency department, patient was found to have acute kidney injury.? Paracentesis was performed Hospital course: Paracentesis without evidence of SBP. Patient's pain and nonbloody diarrhea improved with conservative management, likely viral gastroenteritis. Acute kidney injury resolved and creatinine improved prior to discharge with resuscitation. Patient is stable to be discharged with close follow-up with GI Status at Discharge Overall status at discharge: patient is back to baseline Time Spent with Patient Time attestation: Total time spent providing and/or coordinating discharge services: Discharge coordination time: Less than 30 minutes Quality: Safe Use of Opioids Does Pt have an Active Cancer Diagnosis on the Problem List?: No Quality: Stroke Does the patient have a stroke diagnosis?: No Physical Exam Vital Signs: Vital Signs: Last Vital Signs Temp 97.2 F 03/10/22 06:09 Pulse 56 03/10/22 06:09 Resp 18 03/10/22 06:09 BP 97/56 L 03/10/22 06:09 Pulse Ox 100 03/10/22 06:09 O2 Del Method 03/10/22 06:09 BMI result Body Mass Index 25.8 Middle-aged male l dayami in bed in no distress Neck supp le, no JVD Regular rate and rhythm, S1-S2 heard Regula r breath sounds bi laterally, no whee zing or crackles a ppreciated Abdomen no tenderness, no rebound tendernes s, no guarding, no rigidity Patient is awake, alert an d oriented to self , place, time and person ; no focal motor deficit Psyc h: Normal mood No pedal edema DS: Data Data Completed and Pending Labs on day of discharge: Laboratory Results - last 24 hr 03/09/22 03/09/22 03/09/22 07:14 09:28 10:19 WBC RBC Hgb Hct MCV MCH MCHC RDW Plt Count MPV Immature Gran % (Auto) Neut % (Auto) Lymph % (Auto) [place] % (Auto) Eos % (Auto) Baso % (Auto) Lymph # (Auto) [place] # (Auto) Eos # (Auto) Baso # (Auto) Abs Immat Gran (auto) Absolute Neuts (auto) Absolute Nucleated RBC Nucleated RBC % (auto) Sodium Potassium Chloride Carbon Dioxide Anion Gap BUN Creatinine Estim Creat Clear Calc Estimated GFR POC Glucose Random Glucose Estimat Average Glucose Hemoglobin A1c % Calcium Iron 92 TIBC 203 L % Saturation 45 Unsat Iron Binding 111 Total Bilirubin AST ALT Alkaline Phosphatase Total Protein Albumin Urine Color Yellow Urine Appearance Clear Urine pH 5.5 Ur Specific [place] 1.010 Urine Protein Negative Urine Glucose (UA) Negative Urine Ketones Negative Urine Blood Trace H Urine Nitrite Negative Ur Leukocyte Esterase Negative Urine RBC 3-5 H Urine WBC 0-5 Ur Squamous Epith Cells 0-2 Urine Bacteria None Seen Hyaline Casts >20 Peritoneal Tot Protein 1.0 Peritoneal Glucose 133 03/09/22 03/09/22 03/10/22 10:19 15:48 05:02 WBC 5.5 RBC 2.76 L D Hgb 8.2 L D Hct 23.8 L D MCV 86.2 MCH 29.7 MCHC 34.5 RDW 17.9 H Plt Count 59 L D MPV 11.8 Immature Gran % (Auto) 0.6 H Neut % (Auto) 61.2 Lymph % (Auto) 9.4 L [place] % (Auto) 18.9 H Eos % (Auto) 9.0 H Baso % (Auto) 0.9 Lymph # (Auto) 0.5 L [place] # (Auto) 1.0 Eos # (Auto) 0.5 H Baso # (Auto) 0.1 Abs Immat Gran (auto) 0.03 Absolute Neuts (auto) 3.3 Absolute Nucleated RBC 0.000 Nucleated RBC % (auto) 0.0 Sodium Potassium Chloride Carbon Dioxide Anion Gap BUN Creatinine Estim Creat Clear Calc Estimated GFR POC Glucose 106 Random Glucose Estimat Average Glucose 82 Hemoglobin A1c % 4.5 Calcium Iron TIBC % Saturation Unsat Iron Binding Total Bilirubin AST ALT Alkaline Phosphatase Total Protein Albumin Urine Color Urine Appearance Urine pH Ur Specific [place] Urine Protein Urine Glucose (UA) Urine Ketones Urine Blood Urine Nitrite Ur Leukocyte Esterase Urine RBC Urine WBC Ur Squamous Epith Cells Urine Bacteria Hyaline Casts Peritoneal Tot Protein Peritoneal Glucose 03/10/22 03/10/22 05:02 05:02 WBC Cancelled RBC Cancelled Hgb Cancelled Hct Cancelled MCV Cancelled MCH Cancelled MCHC Cancelled RDW Cancelled Plt Count Cancelled MPV Cancelled Immature Gran % (Auto) Cancelled Neut % (Auto) Cancelled Lymph % (Auto) Cancelled [place] % (Auto) Cancelled Eos % (Auto) Cancelled Baso % (Auto) Cancelled Lymph # (Auto) Cancelled [place] # (Auto) Cancelled Eos # (Auto) Cancelled Baso # (Auto) Cancelled Abs Immat Gran (auto) Cancelled Absolute Neuts (auto) Cancelled Absolute Nucleated RBC Cancelled Nucleated RBC % (auto) Cancelled Sodium 134 L Potassium 3.3 Chloride 111 H Carbon Dioxide 12 L Anion Gap 14 BUN 36 H Creatinine 1.80 H Estim Creat Clear Calc 35.9 Estimated GFR 38 POC Glucose Random Glucose 126 H Estimat Average Glucose Hemoglobin A1c % Calcium 8.4 Iron TIBC % Saturation Unsat Iron Binding Total Bilirubin 2.4 H AST 31 D ALT 20 Alkaline Phosphatase 133 H D Total Protein 5.3 L Albumin 3.1 L Urine Color Urine Appearance Urine pH Ur Specific [place] Urine Protein Urine Glucose (UA) Urine Ketones Urine Blood Urine Nitrite Ur Leukocyte Esterase Urine RBC Urine WBC Ur Squamous Epith Cells Urine Bacteria Hyaline Casts Peritoneal Tot Protein Peritoneal Glucose Preliminary micro results at discharge 03/09/22 07:14 Routine Culture - Preliminary Abdominal Fluid No growth to date. Anaerobic Culture - Preliminary No growth to date. Imaging CT scan - pelvis: Radiologist's impression: ITS Impressions Abdomen/Pelvis CT 03/09/22 05:30 IMPRESSION: 1. Moderate to large volume ascites, increased from 02/19/2022. 2. Mural prominence of the collapsed ascending colon may reflect portal colopathy. 3. Redemonstrated findings of cirrhosis and portal hypertension. Limited assessment for focal hepatic abnormalities without intravenous contrast. 4. Cholelithiasis. Head CT 03/09/22 05:40 IMPRESSION: No acute intracranial pathology. Of note, assessment for intracranial masses would be best performed with MRI. Discharge Plan Discharge Anticipated Discharge Date/Time: 03/10/22 11:37 Patient Disposition: Home, Self-Care Discharge Diagnosis: Acute kidney injury, pre renal Referrals: Physician,Unknown J [Primary Care Provider] - 1 Week Discharge Medications: Continued Januvia 25 mg tablet 25 mg PO DAILY 30 Days Qty: 30 3RF cholestyramine (with sugar) 4 gram powder 4 g PO QID Qty: 378 1RF hydroxyzine HCl 10 mg tablet 10 mg PO BEDTIME Qty: 7 0RF nadolol 20 mg tablet 30 mg PO QPM furosemide [Lasix] 20 mg tablet 40 mg PO BID aspirin 81 mg tablet 81 mg PO DAILY cholecalciferol (vitamin D3) 50 mcg (2,000 unit) capsule 50 mcg PO DAILY pantoprazole 40 mg tablet,delayed release (DR/EC) 40 mg PO BID potassium chloride [Klor-Con M20] 20 mEq tablet,ER particles/crystals 20 meq PO DAILY sucralfate 1 gram tablet 1 g PO QID naltrexone 50 mg tablet 50 mg PO DAILY 14 Days Qty: 14 0RF Discharge Orders: Discharge Order (Routine); Ordered 03/10/22 Ordered By: Milena Mata Diet: Low salt diet Activity on Discharge: As tolerated Stand Alone Forms: Patient Portal Discharge page Care Plan Goals: Follow up with GI in one week Maintain adequate PO hydration Health Concerns: Cirrhosis Hepatocellular carcinoma Plan of Treatment: As per summary Assessment: As per summary
--- NOTE | 2022-03-10 09:49 | MHC.CM.PN ---
Patient has been medically cleared for dc to home self care prior to CM getting down to ED Over to see him.
[2022-03-10 10:04] VITALS: BP 95/50; PULSE 62; RESP 20; TEMP 36.9; O2SAT 98
[2022-03-10 10:13] LABS: Glucose, Whole Blood 124 mg/dL (60-115)
--- NOTE | 2022-03-10 11:46 | PC.NURSE ---
nad, ate breakfast this am, no complaints, skin wpd, discharged home after getting his meds, steady gait, declined K and another med as he stated that they caused nausea
== END 2022-03-10 12:00 | disposition home or self-care (01) | DRG 433 ==
LOC: HO.ED 06:30 → HO.EDOVER 08:58
PROVIDERS: Admitting Provider Student in an Organized Health Care Education/Training Program; Emergency Provider Emergency Medicine; Visit Provider Student in an Organized Health Care Education/Training Program
DX: K74.60 Unspecified cirrhosis of liver (principal); C22.0 Liver cell carcinoma; N17.9 Acute kidney failure, unspecified; R18.8 Other ascites; F17.210 Nicotine dependence, cigarettes, uncomplicated; E11.9 Type 2 diabetes mellitus without complications; A08.4 Viral intestinal infection, unspecified; D63.0 Anemia in neoplastic disease; D64.9 Anemia, unspecified; Z20.822 Contact with and (suspected) exposure to COVID-19; Z86.73 Personal history of transient ischemic attack (TIA), and cerebral infarction without residual deficits; Z86.19 Personal history of other infectious and parasitic diseases; Z92.3 Personal history of irradiation; Z86.16 Personal history of COVID-19; Z71.6 Tobacco abuse counseling; Z79.82 Long term (current) use of aspirin; Z79.899 Other long term (current) drug therapy
CPT/HCPCS: 36415; 70450; 74176; 80048; 80053; 80076; 81001; 82945; 82947; 83036; 83540; 83690; 84157; 84484; 85025; 85610; 87070; 87073; 87205; 87635; 89051; 93005; 96374; 99212; 99218; 99285; J0696; J1650; J2270; P9047

== ENCOUNTER 2022-03-18 11:13 | Day surgery (SDC) | payer MEDICARE, MEDICAID, SELFPAY ==
--- NOTE | ~2022-03-18 | US_ITS ---
EXAMINATION: ULTRASOUND-GUIDED PARACENTESIS CLINICAL INFORMATION: Ascites COMPARISON: March 09, 2022 and March 04, 2022 TECHNIQUE: Ultrasound-guided paracentesis FINDINGS: Informed consent was obtained from the patient prior to the procedure. During this process, the procedure and potential alternatives were explained, along with the intended outcome and benefits. The risks of the procedure, as well as the risk of not doing the procedure, were discussed. The patient was given the opportunity to ask questions regarding the procedure and appeared competent to make medical decisions. A signed consent form which documents this discussion was placed in the medical record. Using sterile technique and ultrasound guidance a 5 Armenian Yueh catheter was directed into the right lower quadrant after checking for positioning of the inferior epigastric vessels. A total of 7 L of clear yellow fluid were removed. Patient heart tolerated procedure without difficulty. US/US paracentesis abd w/image IMPRESSION: Paracentesis with removal of 7 L of clear yellow fluid.
[2022-03-18 12:05] VITALS: BMI 28.7
[2022-03-18 12:18] VITALS: BP 116/68; PULSE 90; RESP 18; TEMP 36.2; O2SAT 97
[2022-03-18] MEDS: Lidocaine HCl 1 % MPF 5 ML VIAL 10 ML SUBCUT (14:13)
[2022-03-18 14:15] VITALS: BP 126/52; PULSE 78; RESP 14; TEMP 36.3; O2SAT 99
[2022-03-18 14:30] VITALS: BP 115/64; PULSE 83; RESP 14; O2SAT 98
[2022-03-18 14:45] VITALS: BP 108/63; PULSE 88; RESP 14; O2SAT 98
== END 2022-03-18 15:06 | disposition home or self-care (01) ==
PROVIDERS: Visit Provider Radiology Diagnostic Radiology
DX: R18.8 Other ascites (principal); C22.0 Liver cell carcinoma; K74.60 Unspecified cirrhosis of liver; Z86.19 Personal history of other infectious and parasitic diseases; A53.0 Latent syphilis, unspecified as early or late; L29.9 Pruritus, unspecified; I10 Essential (primary) hypertension; F17.210 Nicotine dependence, cigarettes, uncomplicated; Z86.16 Personal history of COVID-19
CPT/HCPCS: 49083; P9047

== ENCOUNTER 2022-03-25 10:49 | Day surgery (SDC) | payer MEDICARE, MEDICAID, SELFPAY ==
--- NOTE | ~2022-03-25 | US_ITS ---
EXAMINATION: US GUIDED PARACENTESIS ABDOMEN WITH IMAGE CLINICAL INFORMATION: Ascites with cirrhosis. COMPARISON: 03/25/2022 and 03/18/2022 TECHNIQUE: Ultrasound-guided paracentesis. FINDINGS: Informed consent was obtained from the patient prior to the procedure. During this process, the procedure and potential alternatives were explained, along with the intended outcome and benefits. The risks of the procedure, as well as the risks of not doing the procedure, were discussed. The patient was given the opportunity to ask questions regarding the procedure and appeared competent to make medical decisions. A signed consent form which documents this discussion was placed in the medical record. Using sterile technique, a 5-Kazakh Yueh needle was directed into the right lower quadrant with approximately 10.3 liters of clear yellow fluid being removed. The patient tolerated the procedure without difficulty. US/US paracentesis abd w/image IMPRESSION: Paracentesis with removal of 10.3 liters of fluid.
[2022-03-25 12:02] LABS: MANUAL DIFF FLAG NO
[2022-03-25 12:11] LABS: Basophils Absolute Auto 0.1 X10*3/uL (0.0-0.2); Basophils Percent Auto 1.3 % (0-2); Eosinophils Absolute Auto 0.6 X10*3/uL (0.0-0.4); Eosinophils Percent Auto 10.1 % (0-4); Hematocrit 28.7 % (42.0-52.0); Hemoglobin 9.9 g/dl (14.0-18.0); Imm Gran Abs Auto 0.04 X10*3/uL (0.00-0.03); Imm Gran Pct Auto 0.6 % (0.0-0.4); Lymphocytes Absolute Auto 0.6 X10*3/uL (1.2-4.9); Lymphocytes Percent Auto 9.3 % (20-40); Mean Corpuscular HGB Conc 34.5 g/dl (31.0-36.0); Mean Corpuscular Hemoglobin 30.7 pg (27.0-33.0); Mean Corpuscular Volume 89.1 fL (80.0-98.0); Mean Platelet Volume 11.1 fL (9.4-12.4); Monocytes Absolute Auto 1.1 X10*3/uL (0.1-1.2); Monocytes Percent Auto 17.4 % (2-11); Neutrophils Absolute Auto 3.9 x10*3/uL (2.0-8.3); Neutrophils Percent Auto 61.3 % (45-73); Red Blood Count 3.22 X10*6/uL (4.60-5.80); White Blood Count 6.3 X10*3/uL (4.8-10.8)
[2022-03-25 12:12] LABS: Platelet Count 93 X10*3/uL (160-400)
[2022-03-25 12:16] LABS: INTERNATIONAL NORM RATIO 1.7 (0.9-1.1); Prothrombin Time 19.9 SEC (10.0-13.1)
[2022-03-25 12:20] VITALS: BMI 27.9
[2022-03-25 12:31] LABS: Glucose, Whole Blood 105 mg/dL (60-115)
[2022-03-25] MEDS: Lidocaine HCl 1 % MPF 5 ML VIAL 10 ML SUBCUT (14:24)
[2022-03-25 14:25] VITALS: BP 105/53; PULSE 86; RESP 18; TEMP 36.7; O2SAT 100
[2022-03-25 14:40] VITALS: BP 106/46; PULSE 86; RESP 18; O2SAT 99
[2022-03-25 14:56] VITALS: BP 120/53; PULSE 100; RESP 20; O2SAT 99
[2022-03-25 15:11] VITALS: BP 104/52; PULSE 98; RESP 18; O2SAT 97
[2022-03-25 15:26] VITALS: BP 111/69; PULSE 95; RESP 18; TEMP 36.6; O2SAT 99
== END 2022-03-25 15:33 | disposition home or self-care (01) ==
PROVIDERS: Radiology Diagnostic Radiology; PCP Internal Medicine; Visit Provider Radiology Diagnostic Radiology
DX: R18.8 Other ascites (principal); C22.0 Liver cell carcinoma; K74.60 Unspecified cirrhosis of liver; I10 Essential (primary) hypertension; A53.0 Latent syphilis, unspecified as early or late; F17.210 Nicotine dependence, cigarettes, uncomplicated; Z86.19 Personal history of other infectious and parasitic diseases; Z86.73 Personal history of transient ischemic attack (TIA), and cerebral infarction without residual deficits; Z86.16 Personal history of COVID-19
CPT/HCPCS: 36415; 49083; 82947; 85025; 85610; 85730; P9047

== ENCOUNTER 2022-03-31 11:28 | Day surgery (SDC) | payer MEDICARE, MEDICAID, SELFPAY ==
--- NOTE | ~2022-03-31 | US_ITS ---
EXAMINATION: ULTRASOUND-GUIDED PARACENTESIS CLINICAL INFORMATION: Ascites and cirrhosis. COMPARISON: Ultrasound abdomen 03/31/2022 TECHNIQUE: Following explaining ultrasound-guided paracentesis procedure, benefits and risk, a written consent was obtained. Patient was placed supine on fluoroscopy table and preliminary ultrasound imaging was obtained. An optimal site was selected along the right lower quadrant and marked. The marked site was cleaned and draped in usual sterile manner. 1% lidocaine was administered at puncture site. Through a small skin incision a 5 [place] [employer] catheter was advanced into the peritoneal space. After observing fluid return stylet was withdrawn and catheter connected to vacuum bottle via connecting cannula. After obtaining all fluid and observing normal fluid return, catheter was withdrawn and complete hemostasis achieved at puncture site. Sterile dressing applied postprocedure. Patient tolerated procedure extremely well. FINDINGS: Preliminary ultrasound imaging revealed large amount of free fluid in the abdomen. Approximately 6.8 Liters of clear yellowish fluid was drained from the right lower quadrant. None of this fluid was sent to lab. US/US paracentesis abd w/image IMPRESSION: Successful ultrasound-guided therapeutic paracentesis performed.
[2022-03-31 06:09] VITALS: BMI 27.4
[2022-03-31 11:30] VITALS: BP 108/71; PULSE 102; RESP 18; TEMP 36.6; O2SAT 98
[2022-03-31 11:39] LABS: Glucose, Whole Blood 111 mg/dL (60-115)
[2022-03-31 14:12] VITALS: BP 104/66; PULSE 86; RESP 16; TEMP 36.9; O2SAT 100
[2022-03-31] MEDS: Lidocaine HCl 1 % MPF 5 ML VIAL 10 ML SUBCUT (14:22)
[2022-03-31 14:27] VITALS: BP 116/65; PULSE 88; RESP 18; O2SAT 100
[2022-03-31 14:42] VITALS: BP 128/71; PULSE 90; RESP 18; O2SAT 100
[2022-03-31 15:12] VITALS: BP 107/52; PULSE 86; RESP 18; O2SAT 99
[2022-03-31 15:42] VITALS: BP 109/52; PULSE 88; RESP 18; TEMP 37.1; O2SAT 99
== END 2022-03-31 16:08 | disposition home or self-care (01) ==
LOC: HO.SSS 11:28
PROVIDERS: Radiology Diagnostic Radiology; PCP Internal Medicine; Visit Provider Internal Medicine Gastroenterology
DX: R18.8 Other ascites (principal); K74.60 Unspecified cirrhosis of liver; C22.0 Liver cell carcinoma; Z86.19 Personal history of other infectious and parasitic diseases; K42.0 Umbilical hernia with obstruction, without gangrene; I10 Essential (primary) hypertension; Z79.82 Long term (current) use of aspirin; Z79.84 Long term (current) use of oral hypoglycemic drugs; Z79.899 Other long term (current) drug therapy; Z86.16 Personal history of COVID-19; F17.210 Nicotine dependence, cigarettes, uncomplicated; Z98.890 Other specified postprocedural states
CPT/HCPCS: 49083; 82947; P9047

== ENCOUNTER 2022-04-15 03:07 | Emergency (ER) | payer MEDICARE, MEDICAID, SELFPAY ==
[2022-04-15 03:22] VITALS: BP 140/80; BP 156/98; PULSE 90; PULSE 94; RESP 24; TEMP 36.7; O2SAT 100; O2SAT 98; BMI 31.9
--- NOTE | 2022-04-15 03:50 | ED_ITS ---
HPI - Abdominal Pain General Chief Complaint: Abdominal Pain Stated Complaint: abdominal pain Time Seen by Provider: 04/15/22 03:25 Source: patient Mode of arrival: ambulatory Limitations: no limitations History of Present Illness HPI narrative: 66-year-old male with history of liver cancer and cirrhosis with exhaustion of treatment who needs ongoing therapeutic paracentesis weekly patient last paracentesis was 2 weeks ago because of the holiday is return with severe distension and abdominal pain, patient currently under palliative care only. Patient is here seeking drainage of the ascites. No fever, no chills. Related Data Home Medications Medication Instructions Recorded Confirmed cholecalciferol (vitamin D3) 50 50 mcg PO DAILY 03/03/20 03/31/22 mcg (2,000 unit) capsule aspirin 81 mg tablet 81 mg PO DAILY 03/25/20 03/31/22 furosemide 20 mg tablet (Lasix) 40 mg PO BID 08/04/21 03/31/22 nadolol 20 mg tablet 30 mg PO QPM 08/04/21 03/31/22 pantoprazole 40 mg tablet,delayed 40 mg PO BID 12/04/21 03/31/22 release potassium chloride 20 mEq 20 meq PO DAILY 02/01/22 03/31/22 tablet,extended release(part/cryst) (Klor-Con M) sucralfate 1 gram tablet 1 g PO QID 03/08/22 03/31/22 Previous Rx's Medication Instructions Recorded cholestyramine (with sugar) 4 gram 4 g PO QID #378 grams 02/19/22 oral powder hydroxyzine HCl 10 mg tablet 10 mg PO BEDTIME #7 tabs 03/01/22 Januvia 25 mg tablet (sitagliptin 25 mg PO DAILY 30 days #90 tabs 03/22/22 phosphate) Allergies Allergy/AdvReac Type Severity Reaction Status Date / Time No Known Allergies Allergy Verified 04/15/22 03:22 [No Known Allergies*] Review of Systems Review of Systems All other systems are reviewed and are negative Constitutional: Reports as per HPI and Reports no additional constitutional complaints Eyes: Reports as per HPI and Reports no additional eye complaints Reports system reviewed and no additional complaints, except as documented Cardiovascular: Reports as per HPI and Reports no additional cardiovascular complaints Respiratory: Reports as per HPI and Reports no additional respiratory complaints Gastrointestinal: Reports as per HPI and Reports no additional gastrointestinal complaints Genitourinary: Reports no additional female genitourinary complaints Musculoskeletal: Reports no additional musculoskeletal complaints Skin/Breast: Reports system reviewed and no additional complaints, except as docu Psychiatric: Reports no additional psychiatric complaints Endocrine: Reports no additional endocrine complaints Hematologic/Lymphatic: Reports no additional hematologic/lymphatic complaints Allergic/Immunologic: Reports no additional allergic/immunologic complaints Reports system reviewed and no additional complaints, except as documented and Reports Abnormal speech present [facility] Past Medical History Medical History Acute respiratory disease due to COVID-19 virus Benign essential hypertension Benign prostate hyperplasia Cerebrovascular accident (CVA) Cirrhosis of liver without ascites Dyslipidemia Hepatocellular carcinoma History of hepatitis C 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 Obesity (BMI 30-39.9) Smoker Umbilical hernia Surgical History History of esophagogastroduodenoscopy (EGD) (~2019) History of hernia surgery History of resection of liver History of surgery Hx of colonoscopy Family History Family History Father Diabetes Mother Diabetes Alzheimer disease Chronic mental illness Brother No problems noted. Brother No problems noted. Brother No problems noted. Sister No problems noted. Son No problems noted. Son No problems noted. Son No problems noted. Other Substance abuse Social History Social History Household Members: Significant Other Housing: Apartment Alcohol intake: former Patient Tobacco Use Status: Tobacco use Unknown Tobacco use type: Cigarette Second Hand Smoke Exposure: Yes Advance Directives: No Current occupational status: unemployed Cognitive needs: No Hearing needs: No Vision needs: Yes Physical Exam ED Vital Signs: Vital Signs - 24 hr 04/15/22 03:22 04/15/22 05:38 Temperature 98.0 F Pulse Rate 94 92 Respiratory Rate 24 H 20 Blood Pressure 156/98 H 118/72 Pulse Oximetry 100 100 Oxygen Delivery Method Nasal Cannula Room Air BMI result Body Mass Index 31.9 Vital signs have been reviewed as appeared to be correct. Blood pressure normal. Heart rate normal. Respiration rate normal. Temperature normal. Oxygen saturation normal. Appearance: Alert. Oriented X3. No acute distress. Head: Normal external exam. Normocephalic. Atraumatic. No Salvador signs noted. No raccoon eyes noted Eyes: PERRLA. EOMI. Conjunctiva and sclera normal. Eyelids normal. ENT: TM's Normal. Pharynx normal. Uvula midline. Moist mucous membranes. No trismus noted. No drooling noted. No muffled voice noted. Neck: Normal inspection. Neck supple. FROM. No adenopathy. Thyroid Normal. No meningeal signs. No neck mass noted. CVS: Normal heart rate and rhythm. Heart sound normal. No murmurs noted. Pulses normal throughout. Respiratory: No respiratory distress. Painless inspiration. Breath sounds normal. No wheezes/rales/rhonchi noted. Chest nontender. No accessory muscle usage noted or decreased air movement noted. Abdomen: Distended with ascites no tenderness or rebound tenderness.. Bowel sounds normal in all 4 quadrants. No distention noted. No organomegaly noted. No visible injury noted. Back: No CVA tenderness. Full range of motion noted. Skin: Skin warm and dry. Normal skin color. Normal skin turgor. No rashes/lesions/lacerations noted. Extremities: No lower extremity edema. Extremities exhibit normal range of motion. Extremities nontender. Neuro: Oriented X 3. Cranial nerve exam: II-XII are grossly intact No motor deficit. No sensory deficit. Reflexes normal. Procedures Paracentesis Time Out Performed: Yes Indication: Ascites Procedure: therapeutic paracentesis Location: LLQ Bedside Ultrasound Used: yes, Ascites confirmed and location marked Preparation: sterile prep and drape Amount of fluid obtained (mL): 6,000 Fluid: clear Size of Needle Used: 18 Post Procedure Exam: awake, alert, normal BP, normal HR and normal SpO2 Patient Tolerated Procedure: well and no complications Complications: none Course Course Course Narrative: 66-year-old male came in for abdominal pain and distension due to missing paracentesis for the past 2 weeks due to holidays patient with history of liver cirrhosis and liver cancer now under palliative treatment, labs and exam is not suspicious for SBP. Please refer to procedure note for the paracentesis. Patient was reassessed after the procedure vital signs stable no hypotension patient feels better with less distension and no abdominal pain, no bleeding from the puncture site. Medical Decision Making Medical Decision Making Differential Diagnoses: Differential diagnosis (Abdominal pain/ascites) Lab Attestation: I reviewed the patient's lab results. Discharge Plan Discharge Clinical Impression: Abdominal pain, Cirrhosis of liver, Ascites, Status post abdominal paracentesis Patient Disposition: Home, Self-Care Instructions: Paracentesis (DC) Additional Instructions: Please call and arrange for the next paracentesis. Prescriptions: No Action cholestyramine (with sugar) 4 gram powder 4 g PO QID Qty: 378 1RF hydroxyzine HCl 10 mg tablet 10 mg PO BEDTIME Qty: 7 0RF Januvia 25 mg tablet 25 mg PO DAILY 30 Days Qty: 90 1RF nadolol 20 mg tablet 30 mg PO QPM furosemide [Lasix] 20 mg tablet 40 mg PO BID aspirin 81 mg tablet 81 mg PO DAILY cholecalciferol (vitamin D3) 50 mcg (2,000 unit) capsule 50 mcg PO DAILY pantoprazole 40 mg tablet,delayed release (DR/EC) 40 mg PO BID potassium chloride [Klor-Con M20] 20 mEq tablet,ER particles/crystals 20 meq PO DAILY sucralfate 1 gram tablet 1 g PO QID Referrals: Kimo Daly MD [Primary Care Provider] -
--- NOTE | 2022-04-15 04:05 | PC.NURSE ---
Pt. in bed with at bedside. Pt. continues to experience pain at a 10/10. Labs drawn and sent to lab and IV placed. Pt. is pending paracentesis.
[2022-04-15 04:06] LABS: Basophils Absolute Auto 0.1 X10*3/uL (0.0-0.2); Eosinophils Absolute Auto 0.7 X10*3/uL (0.0-0.4); Eosinophils Percent Auto 6.5 % (0-4); Hematocrit 33.4 % (42.0-52.0); Hemoglobin 11.4 g/dl (14.0-18.0); Imm Gran Abs Auto 0.06 X10*3/uL (0.00-0.03); Imm Gran Pct Auto 0.6 % (0.0-0.4); Lymphocytes Absolute Auto 0.7 X10*3/uL (1.2-4.9); MANUAL DIFF FLAG NO; Mean Corpuscular HGB Conc 34.1 g/dl (31.0-36.0); Mean Corpuscular Hemoglobin 30.3 pg (27.0-33.0); Mean Corpuscular Volume 88.8 fL (80.0-98.0); Mean Platelet Volume 11.3 fL (9.4-12.4); Monocytes Percent Auto 9.8 % (2-11); Neutrophils Absolute Auto 7.9 x10*3/uL (2.0-8.3); Neutrophils Percent Auto 75.1 % (45-73); Platelet Count 165 X10*3/uL (160-400); Red Blood Count 3.76 X10*6/uL (4.60-5.80); Red Cell Distribution Width 15.5 % (11.0-16.0); White Blood Count 10.5 X10*3/uL (4.8-10.8)
[2022-04-15 04:12] LABS: INTERNATIONAL NORM RATIO 1.6 (0.9-1.1); Prothrombin Time 19.1 SEC (10.0-13.1)
[2022-04-15 04:27] LABS: Alanine Aminotransferase 33 U/L (0-40); Albumin Level 3.2 g/dL (3.5-5.0); Alkaline Phosphatase 236 U/L (39-117); Anion Gap 14 (12-20); Aspartate Amino Transferase 53 U/L (5-37); Bilirubin Total 2.9 mg/dL (0.0-1.0); Blood Urea Nitrogen 42 mg/dL (9-16); Calcium 8.7 mg/dL (8.4-10.2); Carbon Dioxide 18 mmol/L (22-29); Chloride 108 mmol/L (96-108); Creatinine Clr Calc Pharmacy 31.3; Estimated Glomerular Filt Rate 29; Glucose Random 172 mg/dL (60-115); Potassium 5.8 mmol/L (3.3-5.1); Sodium 134 mmol/L (135-145); Total Protein 6.7 g/dL (6.5-8.0)
--- NOTE | 2022-04-15 05:34 | PC.NURSE ---
MD placed parecentesis catheter. Drained 6600mL of fluid from the abdomen. Pt. reports decrease in pain and is resting comfortably.
[2022-04-15 05:38] VITALS: BP 118/72; PULSE 92; RESP 20; O2SAT 100
== END 2022-04-15 06:44 | disposition home or self-care (01) ==
PROVIDERS: Emergency Provider Emergency Medicine; PCP Internal Medicine
DX: K74.60 Unspecified cirrhosis of liver (principal); R18.8 Other ascites; Z79.899 Other long term (current) drug therapy
CPT/HCPCS: 36415; 49082; 80053; 85025; 85610; 99283

== ENCOUNTER 2022-04-16 14:40 | Outpatient (RCR) | payer MEDICARE, MEDICAID, SELFPAY ==
[2021-12-07 12:35] VITALS: BP 117/57; PULSE 69; RESP 14; TEMP 36.2; O2SAT 97; BMI 32.2
--- NOTE | 2021-12-07 12:39 | PM.HEMONCCN ---
Subjective - Subjective Chief complaint: Liver cancer Patient: new to practice Consult date: 12/07/21 Primary Care Provider: Kimo Daly MD Medical Summary: Diagnosis: Hepatocellular carcinoma 12/2017 History of HCV, liver cirrhosis, biopsy-proven HCC diagnosed in 12/2017. Status post resection/TACE/SBRT all at [facility]. He is status post segment 6 laparoscopic resection on 03/08/2018, TACE and SBRT to segments 4A, 8 and MWA to seg VIII lesion on 10/11/2019. MWA of new segment II lesion done on 09/11/2020. Completed 5/5 fractions CK SBRT on 12/04/2020 to persistent disease in segment II. MRI on 02/27/2020 with portal vein highly suspicious for tumor thrombus which had since resolved. Pathology-08/10/2019 liver lesion targeted needle core biopsy-scant foci of hepatocellular carcinoma, well to moderately differentiated with lymphovascular invasion. Background hepatic parenchyma with established cirrhosis. Patchy septal/portal inflammation and minimal steatosis. HPI - Consult Narrative Reason for consult: Advanced hepatocellular carcinoma Narrative: Sherwin Baron is a 66 year old male who has established diagnosis of HCC and undergone multiple treatment modalities at [facility] now transferring care [place] [facility] Patient states that he has been told that treatment is no longer working. He does not want to keep driving to [place] anymore. He has been getting therapeutic paracentesis and iron treatments. He states that he received systemic therapy, he is not sure of the medication, in [place] in November. He had scans in October at [facility] and his oncologist had told him that he was not responding to treatment. At this time, he denies any acute complaints such as abdominal discomfort, loss of appetite or weight loss. No chest pain or shortness of breath. No fever or chills. He is able to drive and lives with his significant other. He has 3 grown-up children, sons who live out of state. He is taking oral iron supplementation. He denies any hematochezia. Review of Systems - Constitutional Reports as per HPI, Reports lack of energy, Reports malaise, Denies night sweats, Denies weight loss - Cardiovascular Reports no additional cardiovascular complaints - Respiratory Reports no additional respiratory complaints - Gastrointestinal Reports no additional gastrointestinal complaints Oncology Screenings - ECOG Performance Status ECOG Performance Status: 2 [facility] Medical History: Medical History (Last Reviewed 12/07/21 @ 12:37 by Cheryl Malin) Acute respiratory disease due to COVID-19 virus Benign essential hypertension Benign prostate hyperplasia Cerebrovascular accident (CVA) Cirrhosis of liver without ascites Dyslipidemia Hepatocellular carcinoma History of hepatitis C 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 Obesity (BMI 30-39.9) Smoker Umbilical hernia Family History: Family History (Last Reviewed 12/07/21 @ 12:37 by Cheryl Malin) Father Diabetes Mother Diabetes Alzheimer disease Chronic mental illness Brother No problems noted. Brother No problems noted. Brother No problems noted. Sister No problems noted. Son No problems noted. Son No problems noted. Son No problems noted. Other Substance abuse Surgical History: Surgical History (Last Reviewed 12/07/21 @ 12:37 by Cheryl Malin) History of esophagogastroduodenoscopy (EGD) Onset Date: ~2019 History of resection of liver History of surgery Hx of colonoscopy Social History: Social History (Last Updated 12/07/21 @ 12:39 by Cheryl Malin) Living Situation History: Household Members: Significant Other Housing: Apartment Alcohol History Details: 1. How often do you have a drink containing alcohol?: a. Never Tobacco History: Patient Tobacco Use Status: Current everyday Tobacco Tobacco use type: Cigarette Second Hand Smoke Exposure: Yes Substance Use History: Use of substances other than those prescribed or required for medical reasons: No Domestic Abuse History: Have you been hit, kicked, punched, or otherwise hurt by someone within the past year? If so, by whom?: No Do you feel safe in your current relationship?: Yes Homicidal Assessment: Do you have thoughts of harming others: None Do you have a plan to hurt others: No Plan Do you have the means to hurt others: No Nutrition Assessment: Recently lost weight without trying: Yes How much weight loss: 14-23 pounds Eating poorly because of decreased appetite: Yes Nutrition screen score: 5 Occupation Assessmet: service: No Current occupational status: unemployed Home Medications and Allergies Home Medications Medication Instructions Recorded Confirmed Type cholecalciferol (vitamin D3) 50 50 mcg PO DAILY 03/03/20 12/07/21 History mcg (2,000 unit) capsule aspirin 81 mg tablet 81 mg PO DAILY 03/25/20 12/07/21 History furosemide 20 mg tablet (Lasix) 40 mg PO BID 08/04/21 12/07/21 History iron,carbonyl 65 mg-vitamin C 125 1 tab PO DAILY 08/04/21 12/07/21 History mg tablet,delayed release (Vitron-C) nadolol 20 mg tablet 30 mg PO QPM 08/04/21 12/07/21 History spironolactone 50 mg tablet 100 mg PO BID 08/04/21 12/07/21 History pantoprazole 40 mg tablet,delayed 40 mg PO BID 12/04/21 12/07/21 History release potassium chloride 20 mEq 20 meq PO DAILY 12/04/21 12/07/21 History tablet,extended release(part/cryst) (Klor-Con M) sucralfate 1 gram tablet 1 g PO QID 12/04/21 12/07/21 History amoxicillin 500 mg capsule 1 cap PO Q8H 12/07/21 12/07/21 History Allergies Allergy/AdvReac Type Severity Reaction Status Date / Time No Known Allergies Allergy Verified 12/04/21 09:31 [No Known Allergies*] Physical Exam Vital signs: Vital Signs Temp 97.2 F 12/07/21 12:35 Pulse 69 12/07/21 12:35 Resp 14 12/07/21 12:35 BP 117/57 L 12/07/21 12:35 Pulse Ox 97 12/07/21 12:35 Intake & Output 12/06/21 12/07/21 12/07/21 18:59 06:59 18:59 Other: Weight 85.1 kg Weight in Grams [id number] Weight 85.1 kg - Constitutional Present: no acute distress - Routine HEENT Exam Head: Present: normal inspection Eye: Present: EOMI - Routine Neck Exam Present: supple. Absent: lymphadenopathy - Routine Respiratory Exam Present: CTAB - Routine Cardiovascular Exam Cardiovascular: Present: S1, S2 - Routine Abdominal Exam Present: distended Comments: Ascites present - Routine Extremities Exam Absent: tenderness - Routine Skin Exam Absent: cyanosis Hem/Onc Consult Result - Labs CBC & Chem 7: 12/07/21 13:06 12/07/21 13:06 Assessment and Plan Patient Active problem list reviewed?: Yes (1) Hepatocellular carcinoma Problem details: S/P resection/TACE/SBRT Status: Chronic Assessment and plan: 1. This is a 66-year-old man with advanced hepatocellular carcinoma diagnosed initially in 2018. All his treatment was at [facility] in [place]. He underwent resection followed by multiple local therapies including TACE, SBRT and microwave ablation. He has had progressive disease and reportedly is receiving systemic therapy in [place]. His last treatment may have been in November. He had CT chest and MRI abdomen performed on 11/02/21 which revealed cirrhotic liver with postsurgical changes to lateral right lobe of liver. Numerous nodular areas of arterial enhancement with rapid washout suggestive of recurrent or residual disease. New left-sided biliary ductal dilatation. Occluded left portal vein, mass effect on the right hepatic vein and IVC. Ascites, splenomegaly and varices. Multiple abdominal wall hernias. Patient was informed by his oncologist in [place] that he is not responding to systemic therapy. Patient would like to transfer his care to [facility], he understands that his care is palliative/supportive at this point. He is going for therapeutic paracentesis, he has a scheduled treatment this week. He has been receiving parenteral iron therapy secondary to ongoing occult GI blood losses. This will be arranged. I have requested for medical records from his oncologist in [place]. Further recommendations to follow. I thank you very much for this referral. - Time Spent With Patient Time Spent with Patient (in minutes): 35
[2021-12-07 13:15] LABS: Hemoglobin 7.6 g/dl (14.0-18.0); SCAN SMEAR FLAG 1
[2021-12-07 13:16] LABS: Basophils Absolute Auto 0.1 X10*3/uL (0.0-0.2); Eosinophils Absolute Auto 0.2 X10*3/uL (0.0-0.4); Eosinophils Percent Auto 3.2 % (0-4); Hematocrit 25.2 % (42.0-52.0); Imm Gran Abs Auto 0.04 X10*3/uL (0.00-0.03); Imm Gran Pct Auto 0.7 % (0.0-0.4); Lymphocytes Absolute Auto 0.6 X10*3/uL (1.2-4.9); Lymphocytes Percent Auto 10.6 % (20-40); Mean Corpuscular HGB Conc 30.2 g/dl (31.0-36.0); Mean Corpuscular Hemoglobin 21.2 pg (27.0-33.0); Mean Corpuscular Volume 70.2 fL (80.0-98.0); Monocytes Absolute Auto 0.9 X10*3/uL (0.1-1.2); Monocytes Percent Auto 15.6 % (2-11); Neutrophils Absolute Auto 4.2 x10*3/uL (2.0-8.3); Neutrophils Percent Auto 68.9 % (45-73); Platelet Count 118 X10*3/uL (160-400); Red Blood Count 3.59 X10*6/uL (4.60-5.80); Red Cell Distribution Width 19.9 % (11.0-16.0)
[2021-12-07 13:19] LABS: INTERNATIONAL NORM RATIO 1.7 (0.9-1.1); Prothrombin Time 19.8 SEC (10.0-13.1)
[2021-12-07 13:20] LABS: Ammonia 32 umol/L (13-55)
[2021-12-07 13:23] LABS: PLT ABN DIST 1
[2021-12-07 13:24] LABS: MANUAL DIFF FLAG NO
--- NOTE | 2021-12-07 13:26 | MHC.HEMONCMA ---
patient seen today for new consult for liver CA and anemia, VSS, requested records from Clifford Rodriguez ([facility] Hem/onc), followup in 1 week.
[2021-12-07 13:29] LABS: Alanine Aminotransferase 19 U/L (0-40); Albumin Level 3.2 g/dL (3.5-5.0); Alkaline Phosphatase 119 U/L (39-117); Anion Gap 14 (12-20); Aspartate Amino Transferase 25 U/L (5-37); Bilirubin Total 3.3 mg/dL (0.0-1.0); Blood Urea Nitrogen 22 mg/dL (9-16); Calcium 8.7 mg/dL (8.4-10.2); Carbon Dioxide 21 mmol/L (22-29); Chloride 105 mmol/L (96-108); Estimated Glomerular Filt Rate 42; Glucose Random 152 mg/dL (60-115); Iron 55 mcg/dL (45-160); Percent Iron Saturation 13 % (15-50); Potassium 4.6 mmol/L (3.3-5.1); Sodium 135 mmol/L (135-145); Total Iron Binding Capacity 430 mcg/dL (228-428); Unsaturated Iron Binding 375 ug/dL
--- NOTE | 2021-12-07 13:31 | MHC.HEMONCSW ---
CASSANDRA IS A 66 Y.O. SINGLE , IN A COMMITTED RELATIONSHIP WITH HIS SIGNIFICANT OTHER, LIVE TOGETHER. DIAGNOSIS IS LIVER CARCINOMA TRANSFERRING CARE HERE FROM [facility] DUE TO DIFFICULTY COMMUTING. INDEPENDENT, NO SERVICES. REPORTS HE HAS LIVED WITH THIS ILLNESS A LONG TIME AND HAS COMES TO TERMS WITH HIS EMOTIONS. TRIES TO STAY BUSY, RELY ON GOD AND RELAX. GOOD SPIRITS. STILL DRIVES. HE HAS 3 GROWN SONS AND ONE DAUGHTER ALONG WITH A SISTER. ENCOURAGED IMPORTANCE OF HAVING A HEALTH CARE PROXY, HE WILL BRING ALL INFO TO NEXT VISIT SO ONE CAN BE COMPLETED. GAVE HIM INFORMATION ON [facility] AND HE IS PLEASED. PLAN WILL BE DETERMINED WHEN WE GET MEDICAL RECORDS FROM [facility]. EDUCATIONAL, INFORMATIONAL AND SUPPORTIVE COUNSELING PROVIDED. HOPEFULLY DO HEALTH CARE PROXY ON HIS NEXT VISIT.
--- NOTE | 2021-12-07 15:49 | MHC.HEMONCMA ---
rec Venofor orders gave to Cait to hitesh.
--- NOTE | 2021-12-07 16:10 | HO.HEMONCPA ---
NO PA REQUIRED FOR VENOFER. DRUG COVERED UNDER MEDICARE PART B BENEFITS.
--- NOTE | 2021-12-08 09:53 | MHC.HEMONCMA ---
contacted and spoke with patient and gave iron infusion date of 12/17/21 at 12:00.
[2021-12-09 14:02] LABS: Alpha Fetoprotein 2.5 ng/mL (<6.1)
[2021-12-14 12:33] VITALS: BP 109/55; PULSE 62; RESP 16; TEMP 36.3; O2SAT 100; BMI 32.0
--- NOTE | 2021-12-14 13:33 | MHC.HEMONCSW ---
NOT A CANDIDATE FOR MORE TREATMENT. HE AND DR. CARLSON AGREE A MOLST NEEDED. LENGTHY MEETING ABOUT BOTH A MOLST AND HEALTH CARE PROXY. HCP COMPLETED, NAMED HIS SISTER AND SON, REPORTS HE HAS TOLD THEM HE DOES NOT WANT TO BE VENTED. BRIE EXPLAINED, COMPLETED...DO NOT RESUSITATE. ORIGINALS AND COPIES GIVEN TO PT. HE IS VERY CALM AND AT PEACE WITH HIS DECISION. TO HAVE IRON INFUSION TREATMENT NEXT WEEK. INFORMATIONAL, EDUCATIONAL AND SUPPORT PROVIDED. HE IS AWARE OF MY AVAILABILITY.
--- NOTE | 2021-12-14 16:29 | MHC.HEMONCMA ---
pt seen today for onc f/u, no labs, vss , iron infusion appt 12/17/21 @ 12pm.
--- NOTE | 2021-12-14 18:03 | PM.HEMONCPN ---
Medical Summary - Medical Summary Date of Service: 12/14/21 Chief complaint: Follow-up Medical Summary: Diagnosis: Hepatocellular carcinoma 12/2017 History of HCV, liver cirrhosis, biopsy-proven HCC diagnosed in 12/2017. Status post resection/TACE/SBRT all at [facility]. He is status post segment 6 laparoscopic resection on 03/08/2018, TACE and SBRT to segments 4A, 8 and MWA to seg VIII lesion on 10/11/2019. MWA of new segment II lesion done on 09/11/2020. Completed 5/5 fractions CK SBRT on 12/04/2020 to persistent disease in segment II. MRI on 02/27/2020 with portal vein highly suspicious for tumor thrombus which had since resolved. Pathology-08/10/2019 liver lesion targeted needle core biopsy-scant foci of hepatocellular carcinoma, well to moderately differentiated with lymphovascular invasion. Background hepatic parenchyma with established cirrhosis. Patchy septal/portal inflammation and minimal steatosis. Interval History Interval history: Patient is here in follow-up. He is doing about the same and has no new complaints. He feels quite weak and tired. His appetite is poor. He is scheduled to receive IV iron therapy this . 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 Brother No problems noted. Brother No problems noted. Sister No problems noted. Son No problems noted. Son No problems noted. Son No problems noted. Other Substance abuse Surgical History: Surgical History (Last Reviewed 12/14/21 @ 12:36 by BRIGIDA Jones) History of esophagogastroduodenoscopy (EGD) Onset Date: ~2019 History of resection of liver History of surgery Hx of colonoscopy Social History: Social History (Last Updated 12/14/21 @ 12:38 by BRIGIDA Jones) Living Situation History: Household Members: Significant Other Housing: Apartment Alcohol History Details: 1. How often do you have a drink containing alcohol?: a. Never Tobacco History: Patient Tobacco Use Status: Current everyday Tobacco Tobacco use type: Cigarette Second Hand Smoke Exposure: Yes Substance Use History: Use of substances other than those prescribed or required for medical reasons: No Domestic Abuse History: Have you been hit, kicked, punched, or otherwise hurt by someone within the past year? If so, by whom?: No Do you feel safe in your current relationship?: Yes Homicidal Assessment: Do you have thoughts of harming others: None Do you have a plan to hurt others: No Plan Do you have the means to hurt others: No Nutrition Assessment: Recently lost weight without trying: Yes How much weight loss: 14-23 pounds Eating poorly because of decreased appetite: Yes Nutrition screen score: 5 Occupation Assessmet: Current occupational status: unemployed Home Medications and Allergies Home Medications Medication Instructions Recorded Confirmed Type cholecalciferol (vitamin D3) 50 50 mcg PO DAILY 03/03/20 12/14/21 History mcg (2,000 unit) capsule aspirin 81 mg tablet 81 mg PO DAILY 03/25/20 12/14/21 History furosemide 20 mg tablet (Lasix) 40 mg PO BID 08/04/21 12/14/21 History iron,carbonyl 65 mg-vitamin C 125 1 tab PO DAILY 08/04/21 12/14/21 History mg tablet,delayed release (Vitron-C) nadolol 20 mg tablet 30 mg PO QPM 08/04/21 12/14/21 History spironolactone 50 mg tablet 100 mg PO BID 08/04/21 12/14/21 History pantoprazole 40 mg tablet,delayed 40 mg PO BID 12/04/21 12/14/21 History release potassium chloride 20 mEq 20 meq PO DAILY 12/04/21 12/14/21 History tablet,extended release(part/cryst) (Klor-Con M) sucralfate 1 gram tablet 1 g PO QID 12/04/21 12/14/21 History amoxicillin 500 mg capsule 1 cap PO Q8H 12/07/21 12/14/21 History Allergies Allergy/AdvReac Type Severity Reaction Status Date / Time No Known Allergies Allergy Verified 12/04/21 09:31 [No Known Allergies*] Exam Vital signs: Vital Signs Temp 97.4 F 12/14/21 12:33 Pulse 62 12/14/21 12:33 Resp 16 12/14/21 12:33 BP 109/55 L 12/14/21 12:33 Pulse Ox 100 12/14/21 12:33 O2 Del Method 12/14/21 12:33 Intake & Output 12/13/21 12/14/21 12/14/21 18:59 06:59 18:59 Other: Weight 84.7 kg Ulysses Weight in Grams 71362 Weight 84.7 kg BMI result Body Mass Index 32.0 - Constitutional Present: no acute distress - Routine HEENT Exam Head: Present: normal inspection - Routine Respiratory Exam Present: CTAB - Routine Cardiovascular Exam Cardiovascular: Present: S1, S2 - Routine Abdominal Exam Present: distended - Routine Extremities Exam Absent: tenderness - Routine Skin Exam Absent: cyanosis Data - Labs CBC & Chem 7: 12/07/21 13:06 12/07/21 13:06 Labs: 12/07/21 13:06 Alpha Fetoprotein Routine Ammonia Routine Complete Blood Count Auto Diff Stat Comprehensive Met. Panel Stat IRON PROFILE Routine Prothrombin Time INR Stat Laboratory Last Values WBC 6.0 X10*3/uL (4.8-10.8) 12/07/21 13:06 RBC 3.59 X10*6/uL (4.60-5.80) L 12/07/21 13:06 Hgb 7.6 g/dl (14.0-18.0) L 12/07/21 13:06 Hct 25.2 % (42.0-52.0) L 12/07/21 13:06 MCV 70.2 fL (80.0-98.0) L 12/07/21 13:06 MCH 21.2 pg (27.0-33.0) L 12/07/21 13:06 MCHC 30.2 g/dl (31.0-36.0) L 12/07/21 13:06 RDW 19.9 % (11.0-16.0) H 12/07/21 13:06 Plt Count 118 X10*3/uL (160-400) L 12/07/21 13:06 MPV Not Reportable 12/07/21 13:06 Immature Gran % (Auto) 0.7 % (0.0-0.4) H 12/07/21 13:06 Neut % (Auto) 68.9 % (45-73) 12/07/21 13:06 Lymph % (Auto) 10.6 % (20-40) L 12/07/21 13:06 Lamb % (Auto) 15.6 % (2-11) H 12/07/21 13:06 Eos % (Auto) 3.2 % (0-4) 12/07/21 13:06 Baso % (Auto) 1.0 % (0-2) 12/07/21 13:06 Lymph # (Auto) 0.6 X10*3/uL (1.2-4.9) L 12/07/21 13:06 Lamb # (Auto) 0.9 X10*3/uL (0.1-1.2) 12/07/21 13:06 Eos # (Auto) 0.2 X10*3/uL (0.0-0.4) 12/07/21 13:06 Baso # (Auto) 0.1 X10*3/uL (0.0-0.2) 12/07/21 13:06 Abs Immat Gran (auto) 0.04 X10*3/uL (0.00-0.03) H 12/07/21 13:06 Absolute Neuts (auto) 4.2 x10*3/uL (2.0-8.3) 12/07/21 13:06 Absolute Nucleated RBC 0.000 X10*3/uL (0.0-0.012) 12/07/21 13:06 Nucleated RBC % (auto) 0.0 /100WBC (0.0-0.2) 12/07/21 13:06 PT 19.8 SEC (10.0-13.1) H 12/07/21 13:06 INR 1.7 (0.9-1.1) H 12/07/21 13:06 Sodium 135 mmol/L (135-145) 12/07/21 13:06 Potassium 4.6 mmol/L (3.3-5.1) 12/07/21 13:06 Chloride 105 mmol/L (96-108) 12/07/21 13:06 Carbon Dioxide 21 mmol/L (22-29) L 12/07/21 13:06 Anion Gap 14 (12-20) 12/07/21 13:06 BUN 22 mg/dL (9-16) H 12/07/21 13:06 Creatinine 1.64 mg/dL (0.5-1.4) H 12/07/21 13:06 Estim Creat Clear Calc 43.0 12/07/21 13:06 Estimated GFR 42 12/07/21 13:06 Random Glucose 152 mg/dL (60-115) H D 12/07/21 13:06 Calcium 8.7 mg/dL (8.4-10.2) 12/07/21 13:06 Iron 55 mcg/dL (45-160) 12/07/21 13:06 TIBC 430 mcg/dL (228-428) H 12/07/21 13:06 % Saturation 13 % (15-50) L 12/07/21 13:06 Unsat Iron Binding 375 ug/dL 12/07/21 13:06 Total Bilirubin 3.3 mg/dL (0.0-1.0) H 12/07/21 13:06 AST 25 U/L (5-37) 12/07/21 13:06 ALT 19 U/L (0-40) 12/07/21 13:06 Alkaline Phosphatase 119 U/L (39-117) H 12/07/21 13:06 Ammonia 32 umol/L (13-55) 12/07/21 13:06 Total Protein 7.0 g/dL (6.5-8.0) 12/07/21 13:06 Albumin 3.2 g/dL (3.5-5.0) L 12/07/21 13:06 Alpha Fetoprotein 2.5 ng/mL (<6.1) 12/07/21 13:06 Assessment and Plan Patient Active problem list reviewed?: Yes (1) Hepatocellular carcinoma Problem details: S/P resection/TACE/SBRT Status: Chronic Assessment and plan: 1. This is a 66-year-old man with advanced hepatocellular carcinoma diagnosed initially in 2018. All his treatment was at [facility] in [place]. He underwent resection followed by multiple local therapies including TACE, SBRT and microwave ablation. He has had progressive disease and reportedly is receiving systemic therapy in [place]. His last treatment may have been in November. He had CT chest and MRI abdomen performed on 11/02/21 which revealed cirrhotic liver with postsurgical changes to lateral right lobe of liver. Numerous nodular areas of arterial enhancement with rapid washout suggestive of recurrent or residual disease. New left-sided biliary ductal dilatation. Occluded left portal vein, mass effect on the right hepatic vein and IVC. Ascites, splenomegaly and varices. Multiple abdominal wall hernias. Patient was informed by his oncologist Dr. Denice Rodriguez in [place] that he is not responding to systemic therapy. Patient was started on nivolumab in June 2021. He was not a candidate for bevacizumab because of grade 4 varices. He is now a [facility] [employer]. His quite anemic with iron deficiency related to GI bleeding. I do not think he will be able to tolerate oral tyrosine kinase inhibitors. I discussed supportive care and he is willing for this. Iron infusion is being arranged. Palliative/hospice care will be discussed on the following visit. - Time Spent With Patient Time Spent with Patient (in minutes): 20
--- NOTE | 2022-01-04 13:15 | HO.HEMONCSCH ---
Called patient, went to voicemail. LM regarding no show apt. N/S letter mailed
--- NOTE | 2022-01-04 13:25 | HO.HEMONCSCH ---
Called patient, no answer. LM regarding no show apt. N/S letter mailed.
--- NOTE | 2022-01-27 12:22 | HE.ONCSEC ---
PATIENT CAME IN THE OFFICE REQUESTING TO MAKE AN APPT W/ . I MADE APPT W/ PATIENT FOR 02/03/22 AT 10:20AM PER PT REQUEST
[2022-02-03 10:27] VITALS: BP 80/52; PULSE 83; RESP 14; TEMP 36.2; O2SAT 100; BMI 30.2
--- NOTE | 2022-02-03 11:00 | MHC.HEMONCMA ---
patient seen today for hepatocellular ca, VSS, 2 month followup.
--- NOTE | 2022-02-03 11:19 | PM.HEMONCPN ---
Medical Summary - Medical Summary Date of Service: 02/03/22 Chief complaint: Follow-up Medical Summary: Diagnosis: Hepatocellular carcinoma 12/2017 History of HCV, liver cirrhosis, biopsy-proven HCC diagnosed in 12/2017. Status post resection/TACE/SBRT all at [facility]. He is status post segment 6 laparoscopic resection on 03/08/2018, TACE and SBRT to segments 4A, 8 and MWA to seg VIII lesion on 10/11/2019. MWA of new segment II lesion done on 09/11/2020. Completed 5/5 fractions CK SBRT on 12/04/2020 to persistent disease in segment II. MRI on 02/27/2020 with portal vein highly suspicious for tumor thrombus which had since resolved. Pathology-08/10/2019 liver lesion targeted needle core biopsy-scant foci of hepatocellular carcinoma, well to moderately differentiated with lymphovascular invasion. Background hepatic parenchyma with established cirrhosis. Patchy septal/portal inflammation and minimal steatosis. Interval History Interval history: Patient is here in follow-up. He underwent therapeutic paracentesis yesterday. He is scheduled to receive IV iron infusion today. Other than fatigue he has no acute complaints. He denies chest pain, shortness of breath, dizziness, fever or chills. He does report chronic swelling of both his feet. No pleuritic chest pain or cough. 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 Brother No problems noted. Brother No problems noted. Sister No problems noted. Son No problems noted. Son No problems noted. Son No problems noted. Other Substance abuse Surgical History: Surgical History (Last Reviewed 02/03/22 @ 10:30 by Cheryl Malin) History of esophagogastroduodenoscopy (EGD) Onset Date: ~2019 History of hernia surgery History of resection of liver History of surgery Hx of colonoscopy Social History: Social History (Last Updated 02/03/22 @ 10:31 by Cheryl Malin) Living Situation History: Household Members: Significant Other Housing: Apartment Alcohol History Details: 1. How often do you have a drink containing alcohol?: a. Never 2. How many drinks containing alcohol do you have on a typical day when you are drinking?: a. 1 or 2 Tobacco History: Patient Tobacco Use Status: Current everyday Tobacco Tobacco use type: Cigarette Second Hand Smoke Exposure: Yes Substance Use History: Use of substances other than those prescribed or required for medical reasons: No Domestic Abuse History: Have you been hit, kicked, punched, or otherwise hurt by someone within the past year? If so, by whom?: No Do you feel safe in your current relationship?: Yes Homicidal Assessment: Do you have thoughts of harming others: None Do you have a plan to hurt others: No Plan Do you have the means to hurt others: No Nutrition Assessment: Recently lost weight without trying: No Occupation Assessmet: Current occupational status: unemployed Oncology Screenings - ECOG Performance Status ECOG Performance Status: 2 Home Medications and Allergies Home Medications Medication Instructions Recorded Confirmed Type cholecalciferol (vitamin D3) 50 50 mcg PO DAILY 03/03/20 02/03/22 History mcg (2,000 unit) capsule aspirin 81 mg tablet 81 mg PO DAILY 03/25/20 02/03/22 History furosemide 20 mg tablet (Lasix) 40 mg PO BID 08/04/21 02/03/22 History nadolol 20 mg tablet 30 mg PO QPM 08/04/21 02/03/22 History pantoprazole 40 mg tablet,delayed 40 mg PO BID 12/04/21 02/03/22 History release potassium chloride 20 mEq 20 meq PO DAILY 02/01/22 02/03/22 History tablet,extended release(part/cryst) (Klor-Con M) spironolactone 50 mg tablet 100 mg PO BID 02/01/22 02/03/22 History Allergies Allergy/AdvReac Type Severity Reaction Status Date / Time No Known Allergies Allergy Verified 01/28/22 10:56 [No Known Allergies*] Exam Vital signs: Vital Signs Temp 97.2 F 02/03/22 10:27 Pulse 83 02/03/22 10:27 Resp 14 02/03/22 10:27 BP 80/52 L 02/03/22 10:27 Pulse Ox 100 02/03/22 10:27 O2 Del Method 02/03/22 10:27 Intake & Output 02/02/22 02/03/22 02/03/22 18:59 06:59 18:59 Other: Weight 80 kg [place] Weight in Grams [address]115 Weight 80 kg BMI result Body Mass Index 30.2 - Constitutional Present: no acute distress, chronically ill appearing - Routine HEENT Exam Head: Present: normal inspection Eye: Present: scleral icterus - Routine Neck Exam Present: full ROM - Routine Respiratory Exam Present: CTAB - Routine Cardiovascular Exam Cardiovascular: Present: S1, S2 - Routine Abdominal Exam Present: distended - Routine Extremities Exam Absent: tenderness - Routine Skin Exam Absent: cyanosis Data - Labs CBC & Chem 7: 12/07/21 13:06 12/07/21 13:06 Assessment and Plan Patient Active problem list reviewed?: Yes (1) Hepatocellular carcinoma Problem details: S/P resection/TACE/SBRT Status: Chronic Assessment and plan: 1. This is a 66-year-old man with advanced hepatocellular carcinoma diagnosed initially in 2018. All his treatment was at [facility] in [place]. He underwent resection followed by multiple local therapies including TACE, SBRT and microwave ablation. He has had progressive disease and reportedly is receiving systemic therapy in [place]. His last treatment may have been in November. He had CT chest and MRI abdomen performed on 11/02/21 which revealed cirrhotic liver with postsurgical changes to lateral right lobe of liver. Numerous nodular areas of arterial enhancement with rapid washout suggestive of recurrent or residual disease. New left-sided biliary ductal dilatation. Occluded left portal vein, mass effect on the right hepatic vein and IVC. Ascites, splenomegaly and varices. Multiple abdominal wall hernias. Patient was informed by his oncologist Dr. Denice Rodriguez in [place] that he is not responding to systemic therapy. Patient was started on nivolumab in June 2021. He was not a candidate for bevacizumab because of grade 4 varices. He is now a [facility] He is receiving supportive care. 2. Iron deficiency anemia. He is receiving iron infusions and his anemia has improved. Patient was referred to [facility] services. He says he received them on 1 or 2 occasions but no longer uses their services. Follow-up in 6 weeks. - Time Spent With Patient Time Spent with Patient (in minutes): 15
--- NOTE | 2022-03-17 14:11 | PM.HEMONCPN ---
Medical Summary - Medical Summary Date of Service: 03/17/22 Chief complaint: Follow-up Medical Summary: Diagnosis: Hepatocellular carcinoma 12/2017 History of HCV, liver cirrhosis, biopsy-proven HCC diagnosed in 12/2017. Status post resection/TACE/SBRT all at [facility]. He is status post segment 6 laparoscopic resection on 03/08/2018, TACE and SBRT to segments 4A, 8 and MWA to seg VIII lesion on 10/11/2019. MWA of new segment II lesion done on 09/11/2020. Completed 5/5 fractions CK SBRT on 12/04/2020 to persistent disease in segment II. MRI on 02/27/2020 with portal vein highly suspicious for tumor thrombus which had since resolved. Pathology-08/10/2019 liver lesion targeted needle core biopsy-scant foci of hepatocellular carcinoma, well to moderately differentiated with lymphovascular invasion. Background hepatic parenchyma with established cirrhosis. Patchy septal/portal inflammation and minimal steatosis. Interval History Interval history: Patient is here in follow-up. He is doing okay, he was recently in the hospital for another therapeutic paracentesis. He reports ongoing fatigue but he is eating fairly well. His weight is stable. He denies chest pain, shortness of breath, dizziness, fever or chills. He does report chronic swelling of both his feet. No pleuritic chest pain or cough. Review of Systems - Constitutional Reports as per HPI, Reports fatigue, Reports lack of energy, Reports malaise, Reports poor appetite - Cardiovascular Reports no additional cardiovascular complaints - Respiratory Reports no additional respiratory complaints [facility] Medical History: Medical History (Last Reviewed 03/17/22 @ 14:19 by Diana Lenz CMA) Acute respiratory disease due to COVID-19 virus Benign essential hypertension Benign prostate hyperplasia Cerebrovascular accident (CVA) Cirrhosis of liver without ascites Dyslipidemia Hepatocellular carcinoma History of hepatitis C 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 Obesity (BMI 30-39.9) Smoker Umbilical hernia Family History: Family History (Last Reviewed 03/17/22 @ 14:20 by Diana Lenz CMA) Father Diabetes Mother Diabetes Alzheimer disease Chronic mental illness Brother No problems noted. Brother No problems noted. Brother No problems noted. Sister No problems noted. Son No problems noted. Son No problems noted. Son No problems noted. Other Substance abuse Surgical History: Surgical History (Last Reviewed 03/17/22 @ 14:20 by Diana Lenz CMA) History of esophagogastroduodenoscopy (EGD) Onset Date: ~2019 History of hernia surgery History of resection of liver History of surgery Hx of colonoscopy Social History: Social History (Last Reviewed 03/17/22 @ 14:20 by Diana Lenz CMA) Living Situation History: Household Members: Significant Other Housing: Apartment Alcohol History Details: 1. How often do you have a drink containing alcohol?: a. Never Tobacco History: Patient Tobacco Use Status: Current everyday Tobacco Tobacco use type: Cigarette Second Hand Smoke Exposure: Yes Substance Use History: Use of substances other than those prescribed or required for medical reasons: No Domestic Abuse History: Have you been hit, kicked, punched, or otherwise hurt by someone within the past year? If so, by whom?: No Do you feel safe in your current relationship?: Yes Homicidal Assessment: Do you have thoughts of harming others: None Do you have a plan to hurt others: No Plan Do you have the means to hurt others: No Nutrition Assessment: Recently lost weight without trying: Yes How much weight loss: 14-23 pounds Eating poorly because of decreased appetite: Yes Nutrition screen score: 5 Occupation Assessmet: Current occupational status: unemployed Home Medications and Allergies Home Medications Medication Instructions Recorded Confirmed Type cholecalciferol (vitamin D3) 50 50 mcg PO DAILY 03/03/20 03/17/22 History mcg (2,000 unit) capsule aspirin 81 mg tablet 81 mg PO DAILY 03/25/20 03/17/22 History furosemide 20 mg tablet (Lasix) 40 mg PO BID 08/04/21 03/17/22 History nadolol 20 mg tablet 30 mg PO QPM 08/04/21 03/17/22 History pantoprazole 40 mg tablet,delayed 40 mg PO BID 12/04/21 03/17/22 History release potassium chloride 20 mEq 20 meq PO DAILY 02/01/22 03/17/22 History tablet,extended release(part/cryst) (Klor-Con M) sucralfate 1 gram tablet 1 g PO QID 03/08/22 03/17/22 History Allergies Allergy/AdvReac Type Severity Reaction Status Date / Time No Known Allergies Allergy Verified 03/17/22 14:20 [No Known Allergies*] Exam Vital signs: Vital Signs Temp 97.2 F 02/03/22 10:27 Pulse 83 02/03/22 10:27 Resp 14 02/03/22 10:27 BP 80/52 L 02/03/22 10:27 Pulse Ox 100 02/03/22 10:27 O2 Del Method 02/03/22 10:27 Weight 80 kg BMI result Body Mass Index 30.2 - Constitutional Present: no acute distress, chronically ill appearing - Routine HEENT Exam Head: Present: normal inspection - Routine Neck Exam Present: full ROM - Routine Respiratory Exam Present: CTAB - Routine Cardiovascular Exam Cardiovascular: Present: S1, S2 - Routine Abdominal Exam Present: distended - Routine Extremities Exam Absent: tenderness - Routine Skin Exam Absent: cyanosis Data - Labs CBC & Chem 7: 12/07/21 13:06 12/07/21 13:06 Assessment and Plan Patient Active problem list reviewed?: Yes (1) Hepatocellular carcinoma Problem details: S/P resection/TACE/SBRT Status: Chronic Assessment and plan: 1. This is a 66-year-old man with advanced hepatocellular carcinoma diagnosed initially in 2018. All his treatment was at [facility] in [place]. He underwent resection followed by multiple local therapies including TACE, SBRT and microwave ablation. He has had progressive disease and reportedly is receiving systemic therapy in [place]. His last treatment may have been in November. He had CT chest and MRI abdomen performed on 11/02/21 which revealed cirrhotic liver with postsurgical changes to lateral right lobe of liver. Numerous nodular areas of arterial enhancement with rapid washout suggestive of recurrent or residual disease. New left-sided biliary ductal dilatation. Occluded left portal vein, mass effect on the right hepatic vein and IVC. Ascites, splenomegaly and varices. Multiple abdominal wall hernias. Patient was informed by his oncologist Dr. Denice Rodriguez in [place] that he is not responding to systemic therapy. Patient was started on nivolumab in June 2021. He was not a candidate for bevacizumab because of grade 4 varices. He is now a [facility] He is receiving supportive care. He declined VNA services. He is undergoing therapeutic paracentesis about once a month. 2. Iron deficiency anemia. He is receiving iron infusions. He also has chronic kidney disease which is contributing to his anemia. Follow-up in 6 weeks. - Time Spent With Patient Time Spent with Patient (in minutes): 15
[2022-03-17 14:17] VITALS: BP 118/65; PULSE 98; RESP 14; TEMP 36.1; O2SAT 100; BMI 29.3
--- NOTE | 2022-03-17 16:38 | MHC.HEMONCMA ---
Pt was in for follow up. Clinical summary reviewed and updated, VSS. Pt to return in 1 month.
[2022-04-16 14:41] VITALS: BP 124/67; PULSE 75; RESP 15; TEMP 36.6; O2SAT 100; BMI 29.5
--- NOTE | 2022-04-16 14:50 | PM.HEMONCPN ---
Medical Summary - Medical Summary Date of Service: 04/16/22 Chief complaint: Progressive weakness Medical Summary: Diagnosis: Hepatocellular carcinoma 12/2017 History of HCV, liver cirrhosis, biopsy-proven HCC diagnosed in 12/2017. Status post resection/TACE/SBRT all at [facility]. He is status post segment 6 laparoscopic resection on 03/08/2018, TACE and SBRT to segments 4A, 8 and MWA to seg VIII lesion on 10/11/2019. MWA of new segment II lesion done on 09/11/2020. Completed 5/5 fractions CK SBRT on 12/04/2020 to persistent disease in segment II. MRI on 02/27/2020 with portal vein highly suspicious for tumor thrombus which had since resolved. Pathology-08/10/2019 liver lesion targeted needle core biopsy-scant foci of hepatocellular carcinoma, well to moderately differentiated with lymphovascular invasion. Background hepatic parenchyma with established cirrhosis. Patchy septal/portal inflammation and minimal steatosis. Interval History Interval history: Patient is here in follow-up. He has become much weaker. He is accompanied today by his sister and girlfriend. His become extremely jaundiced, his leg swelling is worse. He is not able to eat much. 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 Brother No problems noted. Brother No problems noted. Sister No problems noted. Son No problems noted. Son No problems noted. Son No problems noted. Other Substance abuse Surgical History: Surgical History (Last Reviewed 04/16/22 @ 14:44 by Cheryl Malin) History of esophagogastroduodenoscopy (EGD) Onset Date: ~2019 History of hernia surgery History of resection of liver History of surgery Hx of colonoscopy Social History: Social History (Last Reviewed 04/16/22 @ 14:44 by Cheryl Malin) Living Situation History: Household Members: Significant Other Housing: Apartment Alcohol History Details: 1. How often do you have a drink containing alcohol?: a. Never Tobacco History: Patient Tobacco Use Status: Tobacco use Unknown Tobacco use type: Cigarette Second Hand Smoke Exposure: Yes Substance Use History: Use of substances other than those prescribed or required for medical reasons: No Domestic Abuse History: Have you been hit, kicked, punched, or otherwise hurt by someone within the past year? If so, by whom?: No Do you feel safe in your current relationship?: Yes Homicidal Assessment: Do you have thoughts of harming others: None Do you have a plan to hurt others: No Plan Do you have the means to hurt others: No Nutrition Assessment: Recently lost weight without trying: Yes How much weight loss: 14-23 pounds Eating poorly because of decreased appetite: Yes Nutrition screen score: 5 Occupation Assessmet: Current occupational status: unemployed Oncology Screenings - ECOG Performance Status ECOG Performance Status: 3 Home Medications and Allergies Home Medications Medication Instructions Recorded Confirmed Type cholecalciferol (vitamin D3) 50 50 mcg PO DAILY 03/03/20 04/16/22 History mcg (2,000 unit) capsule aspirin 81 mg tablet 81 mg PO DAILY 03/25/20 04/16/22 History furosemide 20 mg tablet (Lasix) 40 mg PO BID 08/04/21 04/16/22 History nadolol 20 mg tablet 30 mg PO QPM 08/04/21 04/16/22 History pantoprazole 40 mg tablet,delayed 40 mg PO BID 12/04/21 04/16/22 History release potassium chloride 20 mEq 20 meq PO DAILY 02/01/22 04/16/22 History tablet,extended release(part/cryst) (Klor-Con M) sucralfate 1 gram tablet 1 g PO QID 03/08/22 04/16/22 History Allergies Allergy/AdvReac Type Severity Reaction Status Date / Time No Known Allergies Allergy Verified 04/15/22 10:26 [No Known Allergies*] Exam Vital signs: Vital Signs Temp 97.8 F 04/16/22 14:41 Pulse 75 04/16/22 14:41 Resp 15 04/16/22 14:41 BP 124/67 04/16/22 14:41 Pulse Ox 100 04/16/22 14:41 O2 Del Method 04/16/22 14:41 Intake & Output 04/15/22 04/16/22 04/16/22 18:59 06:59 18:59 Other: Weight 78.1 kg Weight in Grams 64169 Weight 78.1 kg BMI result Body Mass Index 29.5 - Constitutional Present: no acute distress, chronically ill appearing - Routine HEENT Exam Head: Present: normal inspection Eye: Present: scleral icterus - Routine Neck Exam Present: full ROM - Routine Respiratory Exam Present: CTAB - Routine Cardiovascular Exam Cardiovascular: Present: S1, S2 - Routine Abdominal Exam Present: distended - Routine Extremities Exam Absent: tenderness - Routine Skin Exam Absent: cyanosis Data - Labs CBC & Chem 7: 12/07/21 13:06 12/07/21 13:06 Assessment and Plan Patient Active problem list reviewed?: Yes (1) Hepatocellular carcinoma Problem details: S/P resection/TACE/SBRT Status: Chronic Assessment and plan: 1. This is a 66-year-old man with advanced hepatocellular carcinoma diagnosed initially in 2018. All his treatment was at [facility] in [place]. He underwent resection followed by multiple local therapies including TACE, SBRT and microwave ablation. He has had progressive disease and reportedly is receiving systemic therapy in [place]. His last treatment may have been in November. He had CT chest and MRI abdomen performed on 11/02/21 which revealed cirrhotic liver with postsurgical changes to lateral right lobe of liver. Numerous nodular areas of arterial enhancement with rapid washout suggestive of recurrent or residual disease. New left-sided biliary ductal dilatation. Occluded left portal vein, mass effect on the right hepatic vein and IVC. Ascites, splenomegaly and varices. Multiple abdominal wall hernias. Patient was informed by his oncologist Dr. Denice Rodriguez in [place] that he is not responding to systemic therapy. Patient was started on nivolumab in June 2021. He was not a candidate for bevacizumab because of grade 4 varices. He is now a [facility] He was receiving supportive care. He had declined VNA services. He is undergoing therapeutic paracentesis about once a month. He continues to have significant ascites and bilateral leg edema. His kidney functions are getting worse. I have asked him to stop potassium supplementation. His performance status has declined significantly. He is accompanied today by his girlfriend and sister. His son who is his healthcare proxy was on telephone during the interview. They are now in agreement for hospice level of care. This will be initiated in the next few days. Follow-up prn. - Time Spent With Patient Time Spent with Patient (in minutes): 25
--- NOTE | 2022-04-16 16:12 | MHC.HEMONCMA ---
PATIENT SEEN TODAY FOR FOLLOWUP, vss, REFERRED TO [facility] TO DO REFERRAL.
--- NOTE | 2022-04-16 16:14 | MHC.HEMONC ---
Pt referred to [facility] per Dr Andrea.
--- NOTE | 2022-04-19 11:51 | MHC.HEMONC ---
Hospice ([facility]) admitted pt yesterday.
--- NOTE | 2022-04-19 13:46 | MHC.HEMONCMA ---
Faxed to [facility] a comfort care pack list Dr. Hines signed for patient.
--- NOTE | 2022-04-22 17:24 | MHC.HEMONC ---
Pt's fam members came in, said that pt was supposed to have pleurex drain placed today, but procedure was cancelled due to pt's weakness. Pt is home now, but he is in 7-10 pain, OTC meds do not help. They say they received the comfort Pack , but have not been shown how to use the medications within it. The hospice nurse is next sched to come visit tomorrow to explain its use. They say Dr. Andrea was going to make recommendations of which meds are safe to use to not interfere w/ pt's breathing. Nurse contacted Dr. Andrea, but then became aware that pt ws actually already established Hospice pt w/ [facility], so they have an on-call number to use. Pt's fam called Hospice on-call, awaiting call back. Fam members departed w/ gratitude.
--- NOTE | 2022-04-23 16:36 | PM.EVENT ---
Patient Sherwin Baron, on the morning of 04/23/22. He was pronounced by hospice nurse and I was informed of the same. Several members of patient's family came to the office at 15:30 without any appointment. Two sons, a cousin and a niece were present. They wanted to get more information about the patient. Apparently, the sons did not know the severity of their father's illness. They did not know that he had advanced cancer and that he was receiving supportive care for progressive disease. One of his sons who is in the service flew in this morning from [place] but unfortunately was not able to see the father alive. I spent 25 minutes with the family discussing his cancer diagnosis, stage, all the treatment that he had received in [place] prior to his shifting care to [facility] Oncology. He was only receiving supportive care at [facility]. He was advised VNA /hospice care in January 2022 but he discontinued VNA services within a few weeks. Last week he was recommended hospice care as patient's performance status had declined significantly and there was evidence of hepatorenal syndrome and organ failure. He did accept hospice services and patient eventually on 04/23/2022. All their questions were answered to their satisfaction.
== END 2022-04-23 | disposition home or self-care (01) ==
LOC: HO.ONC 14:40
PROVIDERS: PCP Internal Medicine; Referring Provider Nurse Practitioner Family; Visit Provider Internal Medicine
DX: C22.0 Liver cell carcinoma (principal); D50.9 Iron deficiency anemia, unspecified; N18.9 Chronic kidney disease, unspecified; D63.1 Anemia in chronic kidney disease; K74.60 Unspecified cirrhosis of liver; R18.8 Other ascites
CPT/HCPCS: 36415; 80053; 82105; 82140; 83540; 85025; 85610; 99204; 99213; 99214

== ENCOUNTER 2022-04-22 11:10 | Day surgery (SDC) | payer OTHER, MEDICARE, MEDICAID, SELFPAY ==
--- NOTE | ~2022-04-22 | US_ITS ---
EXAMINATION: LIMITED DIAGNOSTIC PARACENTESIS WITH ULTRASOUND GUIDANCE CLINICAL INFORMATION: Hepatic cirrhosis with ascites COMPARISON: March 31, [address] of March 09, 2022 TECHNIQUE: Ultrasound-guided paracentesis. FINDINGS: Patient was for placement of abdominal Pleurx catheter. Patient is noted to have an elevated white blood cell count, hypotension, and increasing creatinine, and with coagulopathy. After discussion with referring physician's was decided to do a diagnostic paracentesis rather than a large volume paracentesis or placement of abdominal drainage catheter. Informed consent was obtained from the patient prior to the procedure. During this process, the procedure and potential alternatives were explained, along with the intended outcome and benefits. The risks of the procedure, as well as the risk of not doing the procedure, were discussed. The patient was given the opportunity to ask questions regarding the procedure and appeared competent to make medical decisions. A signed consent form which documents this discussion was placed in the medical record. Using sterile technique and ultrasound guidance a 4 Estonian Yueh needle was directed into the right lower quadrant with removal of approximately 30 mL of clear yellow fluid which was sent for laboratory studies. Patient tolerated procedure without difficulty. US/US paracentesis abd w/image IMPRESSION: Diagnostic paracentesis as described.
[2022-04-22 11:50] LABS: Glucose, Whole Blood 101 mg/dL (60-115)
[2022-04-22 11:57] VITALS: BMI 27.4
--- NOTE | 2022-04-22 12:03 | PC.NURSE ---
CALLED AND SPOKE TO MD REED IN RADIOLOGY REGARDING PATIENTS STATUS. PATIENT C/O OF ABD PAIN, WEAKNESS, JAUNDICE, LOOKS DIFFERENT FROM WHEN HE WAS HERE IN [place]. INSTRUCTED FOR RAD NURSE TO ASESS PATIENT WELL AND REPORT BACK TO MD REED.
[2022-04-22 12:19] LABS: Basophils Absolute Auto 0.1 X10*3/uL (0.0-0.2); Basophils Percent Auto 0.2 % (0-2); Eosinophils Percent Auto 0.1 % (0-4); Hematocrit 33.9 % (42.0-52.0); Hemoglobin 11.4 g/dl (14.0-18.0); Imm Gran Abs Auto 0.58 X10*3/uL (0.00-0.03); Imm Gran Pct Auto 2.5 % (0.0-0.4); Lymphocytes Absolute Auto 0.5 X10*3/uL (1.2-4.9); Lymphocytes Percent Auto 2.2 % (20-40); MANUAL DIFF FLAG SCAN; Mean Corpuscular HGB Conc 33.6 g/dl (31.0-36.0); Mean Corpuscular Hemoglobin 30.4 pg (27.0-33.0); Mean Corpuscular Volume 90.4 fL (80.0-98.0); Mean Platelet Volume 11.3 fL (9.4-12.4); Monocytes Absolute Auto 3.3 X10*3/uL (0.1-1.2); Monocytes Percent Auto 14.2 % (2-11); Neutrophils Absolute Auto 18.5 x10*3/uL (2.0-8.3); Neutrophils Percent Auto 80.8 % (45-73); Platelet Count 182 X10*3/uL (160-400); Red Blood Count 3.75 X10*6/uL (4.60-5.80); Red Cell Distribution Width 14.5 % (11.0-16.0); SCAN SMEAR FLAG 1
[2022-04-22 12:30] LABS: INTERNATIONAL NORM RATIO 2.6 (0.9-1.1); Prothrombin Time 31.1 SEC (10.0-13.1)
[2022-04-22 12:33] LABS: Partial Thromboplastin Time 39.7 SEC (26.0-36.4)
[2022-04-22 12:42] LABS: SLIDE REVIEW VERIFIED
--- NOTE | 2022-04-22 13:27 | PC.NURSE ---
ATTEMPTED BED FOX FOR A BOWEL MOVEMENT. UNABLE TO DEFACATE. REPOSITIONED TWO ASSIST. TEXT MESSAGE TO MD MERCADO WELL.
[2022-04-22 14:10] VITALS: BP 96/56; PULSE 87; RESP 20; TEMP 36.1; O2SAT 95
[2022-04-22 14:25] VITALS: BP 96/51; PULSE 90; RESP 18; O2SAT 95
[2022-04-22] MEDS: Lidocaine HCl 1 % MPF 5 ML VIAL 10 ML SUBCUT (14:26)
[2022-04-22 14:42] VITALS: BP 101/65; PULSE 89; RESP 16; TEMP 36.1; O2SAT 96
== END 2022-04-22 15:56 | disposition home or self-care (01) ==
PROVIDERS: Radiology Diagnostic Radiology; PCP Internal Medicine; Visit Provider Radiology Diagnostic Radiology
DX: R18.8 Other ascites (principal); K74.60 Unspecified cirrhosis of liver; C22.0 Liver cell carcinoma; I10 Essential (primary) hypertension; Z86.16 Personal history of COVID-19; F17.210 Nicotine dependence, cigarettes, uncomplicated
CPT/HCPCS: 36415; 49083; 82947; 85025; 85610; 85730; 87070; 87073; 87205; J0690